=== PATIENT | female | born 1950 | race Caucasian/White ===

== ENCOUNTER 2022-12-02 19:56 | Outpatient (CLI) | payer MEDICARE, OTHER, SELFPAY | END 2022-12-02 19:57 | disposition home or self-care (01) | LOC: AMB 01-06 11:17 | PROVIDERS: Visit Provider Family Medicine | DX: R41.82 Altered mental status, unspecified (principal) | CPT/HCPCS: A0425; A0427 ==

== ENCOUNTER 2022-12-02 20:19 | Emergency (ER) | payer MEDICARE, OTHER, SELFPAY ==
[2022-12-02] VITALS (30 sets, daily range): BP systolic 120–184; BP diastolic 68–148; PULSE 43–119; RESP 18; TEMP 36.6; O2SAT 82–100; BMI 42.9
--- NOTE | 2022-12-02 20:23 | CRLHL7_ITS ---
For Patients: As a result of the Century Cures Act, medical imaging exams and procedure reports are released immediately into your electronic medical record. You may view this report before your referring provider. If you have questions, please contact your health care provider. CLINICAL HISTORY: Stroke. TECHNIQUE: Standard helical CT image acquisition of the brain was performed. COMPARISON: None available. FINDINGS: There is no intracranial hemorrhage, extra-axial collection, mass effect, or midline shift. [place]-white matter differentiation is preserved. Mild generalized parenchymal volume loss. No acute hydrocephalus. Patchy hypoattenuation in the white matter of both hemispheres likely reflects sequela of chronic small vessel ischemia. Intracranial atherosclerotic calcification. The calvarium is unremarkable. The orbits are unremarkable. Mucous retention cyst in the right maxillary sinus. Trace right mastoid effusion. IMPRESSION: No CT evidence of acute intracranial abnormality. Please note that all CT scans at this facility use dose modulation, iterative reconstruction, and/or weight-based dosing when appropriate to reduce radiation dose to as low as reasonably achievable. Dictated by Kevin Monroe MD @ 12/02/2022 8:56:23 PM (Electronically Signed)
--- NOTE | 2022-12-02 20:27 | CRLHL7_ITS ---
For Patients: As a result of the Century Cures Act, medical imaging exams and procedure reports are released immediately into your electronic medical record. You may view this report before your referring provider. If you have questions, please contact your health care provider. CLINICAL HISTORY: Stroke. TECHNIQUE: CTA head with contrast bolus tracking. 3D angiographic rendering using maximum intensity projection (MIP) and images permanently archived. COMPARISON: None available. FINDINGS: The petrous, cavernous, and supraclinoid segments of the internal carotid arteries are patent. The anterior and middle cerebral arteries are patent. The anterior communicating artery is visualized and is within normal limits. The intracranial vertebral arteries, basilar trunk, and posterior cerebral arteries are patent. 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 No intracranial proximal large vessel occlusion or flow-limiting luminal stenosis. No evidence of cerebral aneurysm. IMPRESSION: No intracranial proximal large vessel occlusion, flow-limiting luminal stenosis, or cerebral aneurysm. Please note that all CT scans at this facility use dose modulation, iterative reconstruction, and/or weight-based dosing when appropriate to reduce radiation dose to as low as reasonably achievable. Dictated by Kevin Monroe MD @ 12/02/2022 10:30:00 PM (Electronically Signed)
--- NOTE | 2022-12-02 20:27 | CRLHL7_ITS ---
For Patients: As a result of the Century Cures Act, medical imaging exams and procedure reports are released immediately into your electronic medical record. You may view this report before your referring provider. If you have questions, please contact your health care provider. CLINICAL HISTORY: Stroke. TECHNIQUE: CTA neck with contrast bolus tracking. 3D angiographic rendering using maximum intensity projection (MIP) and images permanently archived. COMPARISON: None available. FINDINGS: The great vessels are patent. The common carotid arteries are patent. Moderate (50-55%) stenosis of the proximal left ICA, by NASCET criteria, with an associated ulcerative plaque. Mild (<50%) stenosis of the proximal right ICA by NASCET criteria. The more distal cervical ICAs are patent. The origins of the vertebral arteries are patent. The cervical segments of the vertebral arteries are patent. 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 Please note that all CT scans at this facility use dose modulation, iterative reconstruction, and/or weight-based dosing when appropriate to reduce radiation dose to as low as reasonably achievable. Dictated by Kevin Monroe MD @ 12/02/2022 10:26:19 PM (Electronically Signed)
--- NOTE | 2022-12-02 20:30 | ED.NURSE ---
Contacted [facility] for medical records, these to be faxed momentarily.
--- NOTE | 2022-12-02 20:49 | ED.NURSE ---
Patient had IV placed in AC for scan, IV blew in CT. Difficult IV access. Anesthesia called, ED provider to attempt ultrasound IV access.
[2022-12-02 21:18] LABS: Basophils Percent Auto 0.2 % (0.0-3.0); Eosinophils Percent Auto 0.3 % (0.0-7.0); Hematocrit 49.2 % (33.0-51.0); Hemoglobin* 15.4 gm/dL (12.0-16.0); Immature Granulocytes Pct Auto 0.5 %; Lymphocytes Percent Auto 10.7 % (20-44); Mean Corpuscular HGB Conc 31 gm/dL (32-36); Mean Corpuscular Hemoglobin 31 pg (26-34); Mean Corpuscular Volume 100 fL (80-100); Monocytes Percent Auto 7.5 % (0.0-11.0); Neutrophils Percent Auto 80.8 % (42.0-72.0); Platelet Count* 349 K/uL (140-440); RDW Coefficient of Variation % 12.2 % (11.5-15.5); Red Blood Count 4.93 m/uL (4.00-5.20); White Blood Count* 13.92 K/uL (4.50-11.00)
[2022-12-02] MEDS: TENECTEPLASE 5 MG/ML inj 25 MG IVP (21:20)
[2022-12-02 21:32] LABS: Chloride* 102 mmol/L (96-114)
[2022-12-02 21:33] LABS: Potassium* 4.3 mmol/L (3.6-5.1); Sodium* 139 mmol/L (135-149)
[2022-12-02 21:35] LABS: Anion Gap 8 mEq/L (7-15); Carbon Dioxide* 29 mmol/L (20-32); Creatinine* 1.5 mg/dL (0.5-1.5); Est. Creatinine Clearance* 30.14; Estimated Glomerular Filt Rate 37 ml/min; INR 0.89 (0.91-1.10); Prothrombin Time 12.6 Seconds
[2022-12-02 21:36] LABS: Blood Urea Nitrogen* 23 mg/dL (7-30); Calcium* 9.8 mg/dL (8.4-10.6); Glucose* 132 mg/dL (60-115); Partial Thromboplastin Time* 24 Seconds (23-33)
[2022-12-02 21:39] LABS: Slide Review Reflex No
--- NOTE | 2022-12-02 22:15 | ED.GENADULT ---
HPI - General Adult General Chief complaint: Neuro Symptoms/Altered Deficit Stated complaint: Possible stroke Time Seen by Provider: 12/02/22 20:26 Source: patient Mode of arrival: EMS Limitations: no limitations History of Present Illness HPI narrative: 72-year-old female presenting via EMS with stroke-like symptoms. Last known well was at 6:30 p.m. approximately 1 hour and 45 minutes prior to presenting. Patient fell out of her bed this evening and was unable to get up. She noticed that her right arm was not moving. EMS was called when the they arrived at the scene they noticed that she had no movement of both right arm and right leg. Patient presents to the ER she is able to answer questions but is visibly affected on the right side. 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 She also has a history of hyperlipidemia, diaphragmatic hernia, hyper glycemia previously treated with metformin. She currently takes only Remeron and Cymbalta. She denies any history of abdominal or intracranial bleeds. She denies any recent surgeries. Past surgical history is status post expiratory laparotomy, gastric ulcer in closure in the year 1999, left salpingo oophorectomy in 2003, perforated gastric ulcer malrotation in 2001, Juan Luis fundoplication in 2001, breast nodule biopsy 2001, appendectomy, total abdominal hysterectomy calmer Lisfranc's fracture of the right foot status post surgical repair, small-bowel obstruction status post and an anastomosis at the age of 15. Related Data Home Medications Medication Instructions Recorded Confirmed duloxetine 60 mg capsule,delayed 120 mg PO DAILY 12/02/22 12/02/22 release Allergies Allergy/AdvReac Type Severity Reaction Status Date / Time No Known Drug Allergies Allergy Verified 12/02/22 21:06 Review of Systems Status of ROS: Reports: 6 or more systems reviewed and unremarkable except as noted in History and below [facility] Social History Smoking Status: Never smoker How often do you have a drink containing alcohol: never AUDIT-C Alcohol total score: 0 Non-prescribed substance use: denies use Exam Narrative: Exam Narrative: Patient is met in the ambulance [facility]. Obese patient lying quietly on the gurney. Alert and oriented x3. Answers questions appropriately. Patient speaks in full sentences without needing to catch her breath. HEENT: Normocephalic atraumatic. Pupils are equally round reactive to light. Extraocular muscles are intact. Conjunctivae are moist without any icterus noted. Moist mucous membranes. Poor oral hygiene. Neck is soft without any lymphadenopathy or thyromegaly. Cardiovascular: Heart is regular irregularly irregular. Lungs: Distant breath sounds bilaterally, clear. Abdomen: Soft and nontender nondistended with normal bowel sounds. No guarding or rebound. No masses or organomegaly appreciated. Extremities: Bilateral lower extremities are without edema. Skin: Well perfused without any obvious rashes. Strength is 4/5 on the left patient does not move the right upper or lower extremity at all. [id number] is slow and deliberate on the left, does not move right arm. Patient has right shu neglect. Gaze does not follow past the midline. Const: Vital Signs, click to edit/add: Vital Signs - 24 hr 12/02/22 20:55 12/02/22 20:56 12/02/22 20:57 Temperature Pulse Rate 72 74 74 Pulse Rate [Right Pulse Oximeter] Respiratory Rate Blood Pressure 145/93 H 160/77 H Blood Pressure [Ri ght Upper Arm] Pulse Oximetry 95 94 100 Oxygen Delivery Me thod Oxygen Flow Rate 12/02/22 21:00 12/02/22 21:02 12/02/22 21:06 Temperature 97.9 F Pulse Rate 79 74 Pulse Rate [Right Pulse Oximeter] 84 Respiratory Rate 18 Blood Pressure 184/148 H Blood Pressure [Ri ght Upper Arm] 184/148 H Pulse Oximetry 97 95 97 Oxygen Delivery Me thod Room Air Oxygen Flow Rate 12/02/22 21:15 12/02/22 21:17 12/02/22 21:35 Temperature Pulse Rate Pulse Rate [Right Pulse Oximeter] Respiratory Rate Blood Pressure 176/98 H 170/83 H 120/107 H Blood Pressure [Ri ght Upper Arm] Pulse Oximetry Oxygen Delivery Me thod Oxygen Flow Rate 12/02/22 21:37 12/02/22 21:38 12/02/22 21:45 Temperature Pulse Rate 106 H 73 Pulse Rate [Right Pulse Oximeter] Respiratory Rate Blood Pressure 134/122 H Blood Pressure [Ri ght Upper Arm] Pulse Oximetry 91 90 Oxygen Delivery Me thod Oxygen Flow Rate 12/02/22 21:49 12/02/22 21:50 12/02/22 21:53 Temperature Pulse Rate 78 75 Pulse Rate [Right Pulse Oximeter] Respiratory Rate Blood Pressure 159/129 H Blood Pressure [Ri ght Upper Arm] Pulse Oximetry 96 97 95 Oxygen Delivery Me thod Oxygen Flow Rate 12/02/22 21:54 12/02/22 21:54 12/02/22 21:57 Temperature Pulse Rate 80 Pulse Rate [Right Pulse Oximeter] Respiratory Rate Blood Pressure 161/101 H Blood Pressure [Ri ght Upper Arm] Pulse Oximetry 96 82 L 95 Oxygen Delivery Me thod Nasal Cannula Oxygen Flow Rate 2 12/02/22 22:02 12/02/22 22:03 12/02/22 22:06 Temperature Pulse Rate 78 72 77 Pulse Rate [Right Pulse Oximeter] Respiratory Rate Blood Pressure 150/137 H 161/131 H Blood Pressure [Ri ght Upper Arm] Pulse Oximetry 94 96 97 Oxygen Delivery Me thod Oxygen Flow Rate 12/02/22 22:14 12/02/22 22:15 12/02/22 22:18 Temperature Pulse Rate 73 43 L 79 Pulse Rate [Right Pulse Oximeter] Respiratory Rate Blood Pressure 131/116 H 145/74 H Blood Pressure [Ri ght Upper Arm] Pulse Oximetry 100 98 96 Oxygen Delivery Me thod Oxygen Flow Rate 12/02/22 22:33 12/02/22 22:48 12/02/22 23:03 Temperature Pulse Rate Pulse Rate [Right Pulse Oximeter] Respiratory Rate Blood Pressure 147/77 H 153/108 H 154/68 H Blood Pressure [Ri ght Upper Arm] Pulse Oximetry Oxygen Delivery Me thod Oxygen Flow Rate 12/02/22 23:11 Temperature Pulse Rate 119 H Pulse Rate [Right Pulse Oximeter] Respiratory Rate Blood Pressure Blood Pressure [Ri ght Upper Arm] Pulse Oximetry 86 L Oxygen Delivery Me thod Oxygen Flow Rate Course Course ED Course: Patient was met in the ambulance [facility] and examined in route to CT. Head CT was done was unremarkable. Unfortunately patient only had a 22 gauge in and depression staff was unable to get another IV arm. Dr. Benitez was also in the ER at the time, was eventually able to get a ultrasound-guided IV in. Of note, we did call Anesthesia for assistance and they initially refused to come. By the time that they did come, the IV was just getting placed. This was around minute 50. We did call the stroke code right away upon arrival and so Dr. Avelar from [facility] was online with us. We discussed putting and IO however Dr. Avelar stated that this was not ideal. Once the IV was established Tenectaplase was given, after risks and benefits were discussed for the patient. We were then able to draw labs, which were unremarkable, and send the patient for CTA head and neck both of which were unremarkable. The only abnormality noted on the CT neck was Moderate (50-55%) stenosis of the proximal left ICA, by NASCET criteria, with an associated ulcerative plaque. Mild (<50%) stenosis of the proximal right ICA. EKG, read by me, shows atrial fibrillation with a pulse of 81. This is new when compared to previous EKGs in her past medical records which showed normal sinus rhythm. Patient's blood pressure remained stable around the 150s systolic. [facility] did accept the patient for transfer however there is no bed available at the time. Therefore patient did stay in the ER for a total of 3 hours while a bed became available. Patient remained stable without significant changes during that time. She is transferred via ALS ambulance. Vital Signs Vital signs: Initial Vital Signs Pulse Rate 72 12/02/22 20:55 Blood Pressure 145/93 H 12/02/22 20:55 Blood Pressure Mean 110 H 12/02/22 20:55 Pulse Oximetry 95 12/02/22 20:55 Vital Signs Pulse Rate 72 12/02/22 20:55 Blood Pressure 145/93 H 12/02/22 20:55 Pulse Oximetry 95 12/02/22 20:55 Temperature 97.9 F 12/02/22 21:06 Pulse Rate 119 H 12/02/22 23:11 Respiratory Rate 18 12/02/22 21:06 Blood Pressure 154/68 H 12/02/22 23:03 Pulse Oximetry 86 L 12/02/22 23:11 Oxygen Delivery Method Nasal Cannula 12/02/22 21:57 Oxygen Flow Rate 2 12/02/22 21:57 Medical Decision Making MDM Narrative Medical decision making narrative: 72-year-old male status post stroke with right-sided hemiparesis and hemineglect. Patient transferred to [facility] for further management. Medical Records Medical records reviewed: Yes I reviewed the patient's medical records Lab Data Lab results reviewed: Yes I reviewed the patient's lab results Labs: Lab Results 12/02/22 Range/Units 21:09 WBC 13.92 H (4.50-11.00) K/uL RBC 4.93 (4.00-5.20) m/uL Hgb 15.4 (12.0-16.0) gm/dL Hct 49.2 (33.0-51.0) % MCV 100 (80-100) fL MCH 31 (26-34) pg MCHC 31 L (32-36) gm/dL RDW Coeff of Lilian 12.2 (11.5-15.5) % Plt Count 349 (140-440) K/uL Neut % (Auto) 80.8 H (42.0-72.0) % Lymph % (Auto) 10.7 L (20-44) % Yates % (Auto) 7.5 (0.0-11.0) % Eos % (Auto) 0.3 (0.0-7.0) % Baso % (Auto) 0.2 (0.0-3.0) % Neut # (Auto) 11.20 H (1.7-7.0) K/uL Lymph # (Auto) 1.50 (0.90-2.90) K/uL Yates # (Auto) 1.00 H (0.00-0.90) K/UL Eos # (Auto) 0.00 (0.00-0.50) K/uL Baso # (Auto) 0.00 (0.00-0.30) K/uL Abs Immat Gran (auto) 0.10 (0.00-0.30) K/uL Imm/Tot Granulo (auto) 0.5 % INR 0.89 L (0.91-1.10) APTT 24 (23-33) Seconds Sodium 139 (135-149) mmol/L Potassium 4.3 (3.6-5.1) mmol/L Chloride 102 (96-114) mmol/L Carbon Dioxide 29 (20-32) mmol/L Anion Gap 8 (7-15) mEq/L BUN 23 (7-30) mg/dL Creatinine 1.5 (0.5-1.5) mg/dL Estimated Creat Clear 30.14 Estimated GFR 37 ml/min Glucose 132 H (60-115) mg/dL Calcium 9.8 (8.4-10.6) mg/dL Imaging Data CT scan - head: Attestation: I have reviewed the pertinent imaging results. Radiologist's impression: Standard helical CT image acquisition of the brain was performed. COMPARISON: None available. FINDINGS: There is no intracranial hemorrhage, extra-axial collection, mass effect, or midline shift. [place]-white matter differentiation is preserved. Mild generalized parenchymal volume loss. No acute hydrocephalus. Patchy hypoattenuation in the white matter of both hemispheres likely reflects sequela of chronic small vessel ischemia. Intracranial atherosclerotic calcification. The calvarium is unremarkable. The orbits are unremarkable. Mucous retention cyst in the right maxillary sinus. Trace right mastoid effusion. IMPRESSION: No CT evidence of acute intracranial abnormality. CTA head neck: Attestation: I have reviewed the pertinent imaging results. Radiologist's impression: CTA head with contrast bolus tracking. 3D angiographic rendering using maximum intensity projection (MIP) and images permanently archived. COMPARISON: None available. FINDINGS: The petrous, cavernous, and supraclinoid segments of the internal carotid arteries are patent. The anterior and middle cerebral arteries are patent. The anterior communicating artery is visualized and is within normal limits. The intracranial vertebral arteries, basilar trunk, and posterior cerebral arteries are patent. 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 No intracranial proximal large vessel occlusion or flow-limiting luminal stenosis. No evidence of cerebral aneurysm. IMPRESSION: No intracranial proximal large vessel occlusion, flow-limiting luminal stenosis, or cerebral aneurysm. CTA neck with contrast bolus tracking. 3D angiographic rendering using maximum intensity projection (MIP) and images permanently archived. COMPARISON: None available. FINDINGS: The great vessels are patent. The common carotid arteries are patent. Moderate (50-55%) stenosis of the proximal left ICA, by NASCET criteria, with an associated ulcerative plaque. Mild (<50%) stenosis of the proximal right ICA by NASCET criteria. The more distal cervical ICAs are patent. The origins of the vertebral arteries are patent. The cervical segments of the vertebral arteries are patent. 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 ECG Data Attestation: I personally reviewed and interpreted this ECG as follows: Critical Care Time Critical Care Time Total Critical Care Time in Minutes: 90 Discharge Plan Discharge Clinical Impression: Cerebrovascular accident Patient Disposition: [facility] Calderon Condition: Guarded Prescriptions: No Action duloxetine 60 mg capsule,delayed release(DR/EC) 120 mg PO DAILY Follow Up/Referrals: Provider,Not a Local [Primary Care Provider] - Stand Alone Forms: [employer] Info Instructions
--- NOTE | 2022-12-02 23:26 | ED.NURSE ---
Patient transferred to [facility]. Report called to Santos carlos, neuro ICU.
== END 2022-12-02 23:28 | disposition short-term general hospital (02) ==
PROVIDERS: Emergency Provider Family Medicine
DX: I63.9 Cerebral infarction, unspecified (principal); G81.91 Hemiplegia, unspecified affecting right dominant side
CPT/HCPCS: 36415; 70450; 70496; 70498; 80048; 82962; 85025; 85610; 85730; 93005; 94761; 96374; 99285; 99291; 99292; G0508; J3101; Q9967

== ENCOUNTER 2023-04-11 23:39 | Outpatient (CLI) | payer MEDICARE, OTHER, SELFPAY | END 2023-04-11 23:40 | disposition home or self-care (01) | LOC: AMB 04-15 13:20 | PROVIDERS: Visit Provider Family Medicine | DX: R53.1 Weakness (principal) | CPT/HCPCS: A0998 ==

== ENCOUNTER 2023-04-16 15:43 | Outpatient (CLI) | payer MEDICARE, OTHER, SELFPAY | END 2023-04-16 15:44 | disposition home or self-care (01) | LOC: AMB 04-17 18:02 | PROVIDERS: Visit Provider Family Medicine | DX: R53.1 Weakness (principal) | CPT/HCPCS: A0998 ==

== ENCOUNTER 2023-07-21 13:45 | Outpatient (RCR) | payer MEDICARE, OTHER, SELFPAY | END 2023-11-10 13:58 | disposition home or self-care (01) | PROVIDERS: PCP Family Medicine; Visit Provider Family Medicine | DX: I69.351 Hemiplegia and hemiparesis following cerebral infarction affecting right dominant side (principal); Z51.89 Encounter for other specified aftercare | CPT/HCPCS: 97110; 97112; 97116; 97162; 97165; 97530; 97535 ==

== ENCOUNTER 2024-01-04 07:11 | Outpatient (CLI) | payer MEDICARE, OTHER, SELFPAY | END 2024-01-04 07:12 | disposition home or self-care (01) | LOC: AMB 01-07 14:21 | PROVIDERS: PCP Family Medicine; Visit Provider Emergency Medicine | DX: R53.1 Weakness (principal) | CPT/HCPCS: A0998 ==

== ENCOUNTER 2024-04-04 03:31 | Outpatient (CLI) | payer MEDICARE, SELFPAY | END 2024-04-04 03:32 | disposition home or self-care (01) | LOC: AMB 04-19 10:32 | PROVIDERS: PCP Family Medicine; Visit Provider Family Medicine | DX: R53.1 Weakness (principal) | CPT/HCPCS: A0998 ==

== ENCOUNTER 2024-06-02 08:01 | Outpatient (CLI) | payer MEDICARE, SELFPAY | END 2024-06-02 08:02 | disposition home or self-care (01) | LOC: AMB 06-03 11:53 | PROVIDERS: PCP Family Medicine; Visit Provider Emergency Medicine | DX: R53.1 Weakness (principal) | CPT/HCPCS: A0998 ==

== ENCOUNTER 2024-08-26 15:54 | Outpatient (CLI) | payer MEDICARE, SELFPAY ==
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
--- OUTSIDE RECORDS SUMMARY | 2024-08-15 13:45 | XMS_ITS | Encounter Summary ---
Author Organization [facility] Address [address] [place] [address] Care Team Providers Care Slab Puller Name Role Phone Susi Lemus P.A.-C. Primary Care Pro vider Reason for Referral * Outpatient (Routine) - Closed Specialty Diagnoses / Procedures Referred By Contac t Referred To Contact Diagnoses Atrial Fibrillation Unspecified (HCC) Procedures ECG 12 Lead HI EKG 12 LEAD W I&R Susi Lemus MPAS, P.A.-C. [address] [place] [address] Phone: tel: fax: [facility] Region Referral ID Status Reason Start Date Expiration Date Visits Re quested Visits Authorized [id number] Closed 08/15/2024 11/15/2025 1 1 Reason for Visit * Outpatient (Routine) - Closed Specialty Diagnoses / Procedures Referred By Contac t Referred To Contact Diagnoses Atrial Fibrillation Unspecified (HCC) Procedures ECG 12 Lead HI EKG 12 LEAD W I&R Suis Lemus MPAS, P.A.-C. [address] [place] [address] Phone: tel: fax: [facility] Region Referral ID Status Reason Start Date Expiration Date Visits Re quested Visits Authorized [id number] Closed 08/15/2024 11/15/2025 1 1 Encounter Details Date Type Department Care Team (Latest Contact Info) Description 08/15/2024 1:45 PM CDT - 08/15/2024 11:59 PM CDT Hospital Encounter Department of Laboratory Medicine in [place], [place] [address] [facility] [place] [address] Susi Lemus MPAS, P.A.-C. [address] [facility] [place] [phone] Atrial Fibrillation Unspecified (HCC) Discharge Disposition: Home or Self Care Social History Tobacco Use Types Packs/Day Years Used Date Smoking Tobacco: Never Passive Smoke Exposure: Past Smokeless Tobacco: Never Alcohol Use Standard Drinks/Week Comments Not Currently 0 (1 standard drink = 0.6 oz pur e alcohol) basicly nil [facility] Utilities Answer Date Recorded In the past 12 months has e POW, oil, or water [employer] threatened to shut off services in your [...] your living situation today? I have a [facility] place to live 08/15/2024 Education Answer Date Recorded What is the highest level of school you have completed or the highest degree you have received? Associate degree: occupational, technical, or vocational program 12/09/2021 Comments No Sex and Gender Information Value Date Recorded Sex Assigned at Female 03/22/2023 10:14 PM FOOD ORDER DELIVERY RUNNER Legal Sex Female 5:31 AM FOOD ORDER DELIVERY RUNNER Gender Identity Female 02/02/2018 11:17 AM FOOD ORDER DELIVERY RUNNER Sexual Orientation Straight 02/02/2018 11 :17 AM FOOD ORDER DELIVERY RUNNER documented as of this encounter Medications at Time of Discharge acetaminophen (TYLENOL) 500 mg tablet Take 1,000 mg by mouth every 6 (six) hours as needed. 03/12/2023 atorvastatin (Lipitor) 80 mg tablet TAKE 1 TABLET (80 MG TOTAL) BY MOUTH AT BEDTIME. 90 tablet 3 08/17/2024 1:16 PM CDT 08/17/2024 baclofen (LioresaL) 10 mg tablet TAKE 1 TABLET (10 MG TOTAL) BY MOUTH 2 (TWO) TIMES A DAY. 180 tablet 3 08/17/2024 1:17 PM CDT 08/17/2024 busPIRone (BuSpar) 5 mg tablet Take 1 tablet (5 mg total) by mouth 2 (two) times a day. 180 tablet 08/17/2024 1:16 PM CDT 08/15/2024 DME Oxygen Oxygen for home use. Liters per minute: 2 per nasal cannula. Frequency of use: Nocturnal;. Length of need: 99 Months. 03/12/2023 DULoxetine (Cymbalta) [address] capsule TAKE 2 CAPSULES (120 MG TOTAL) BY MOUTH DAILY. 180 capsule 3 08/17/2024 1:17 PM CDT 08/17/2024 Eliquis 5 mg tablet TAKE 1 TABLET (5 MG TOTAL) BY MOUTH 2 (TWO) TIMES A DAY. 180 tablet 3 08/17/2024 1:17 PM CDT 08/17/2024 gabapentin (Neurontin) 100 mg capsule TAKE 1 CAPSULE (100 MG TOTAL) BY MOUTH AT BEDTIME. 90 capsule 3 08/17/2024 1:16 PM CDT 08/17/2024 ketoconazole (NIZORAL) 2 % shampoo Shampoo twice weekly , leave on for 5-10 minutes, then rinse. 120 mL 11 04/01/2023 lidocaine (LMX) 4 % cream APPLY TOPICALLY TO INTACT SKIN 4 TIMES DAILY FOR NEUROPATHIC OR MUSCULOSKELETAL PAIN. DO NOT PLACE OVER INCISION, WOUND, OR RASH AREA. 03/12/2023 lidocaine HCL (ASPERCREME) 4 % cream cream Apply topically to intact skin 4 times daily for neuropathic or musculoskeletal pain. Do not place over incision, wound, or rash area. 03/12/2023 miconazole (MICATIN) 2 % cream APPLY TOPICALLY TO AFFECTED SKIN UNDER BILATERAL BREASTS (ESPECIALLY RIGHT BREAST) TWICE DAILY UNTIL RESOLVED. DO NOT PLACE OVER {ADTDIR} 03/12/2023 miconazole 2 % powder Apply topically daily. Apply to under breast after shower . 43 g 08/02/2024 2:11 PM CDT 08/02/2024 senna 8.6 mg tablet TAKE 2 TABLETS (17.2 MG) BY MOUTH ONCE DAILY. 180 tablet 3 04/27/2023 UNABLE TO FIND Take by mouth daily. Med Name: Instaflex WHEELCHAIR [facility] Wheelchair: Standard with leg rests: (Swing away Length of need: 99 months 03/05/2023 apixaban (Eliquis) 5 mg tablet Take 1 tablet (5 mg total) by mouth 2 (two) times a day. 180 tablet 3 08/11/2023 08/18/19 25 atorvastatin (LIPITOR) 80 mg tablet Take 1 tablet (80 mg total) by mouth at bedtime. 90 tablet 3 08/11/2023 08/18/19 25 baclofen (LioresaL) 10 mg tablet Take 1 tablet (10 mg total) by mouth 2 (two) times a day. 180 tablet 3 08/11/2023 08/18/19 25 DULoxetine (CYMBALTA) [address] capsule Take 2 capsules (120 mg total) by mouth daily. 180 capsule 3 08/11/2023 08/18/19 25 gabapentin (NEURONTIN) 100 mg capsule Take 1 capsule (100 mg total) by mouth at bedtime. 90 capsule 3 08/11/2023 08/18/19 25 documented as of this encounter Plan of Treatment Upcoming Encounters Date Type Department Care Team (Late st Contact Info) Description 09/19/2024 2:00 PM CDT Office Visit Department of Community Internal Medicine in [place], [place] [address] [place] [phone] Susi Lemus MPAS, P.A.-C. [address] [place] [phone] 11/01/2024 12:00 PM CDT Comprehensive Visit Department of Neurology in [place], [place] [address] [place] [address] Lang Olguin M.D. [address] [place] [address] documented as of this encounter Procedures Procedure Name Priority Date/Time Associated Diagnosis Comments ECG Routine 08/15/2024 1:56 PM CDT Atrial Fibrillation Unspecified (HCC) documented in this encounter Results * ECG 12 Lead (08/15/2024 1:56 PM CDT) Ventricular Rate ECG/Min 76 BPM MUSE HI Interval 150 ms MUSE QRSD Interval 78 ms MUSE QT Interval 388 ms MUSE QTC Interval 436 ms MUSE R [place] -27 degrees MUSE T Wave [place] 25 degrees MUSE 08/15/2024 1:56 PM CDT [...] leads Reviewed by MAYLIN Byrne us Susi GUZMAN PChetnaA.-C. ECG ORDERABLES E dited Result - Final MUSE NA documented in this encounter Visit Diagnoses Diagnosis Atrial Fibrillation Unspecified (HCC) documented in this encounter Additional Health Concerns Assessment Noted Time PHQ-9 Depression Total Score: 7 08/16/19 25 12:54 PM CDT documented as of this encounter Care Teams Slab Puller Relationship Specialty Start Date End Date Susi Lemus MPAS, P.A.-C. [address] [place] [phone] PCP - General Internal Medicine 08/02/24 documented as of this encounter
--- OUTSIDE RECORDS SUMMARY | 2024-08-15 13:45 | XMS_ITS | Encounter Summary ---
Author Organization [facility] Address [address] [place] [address] Care Team Providers Care Cloth Bin Packer Name Role Phone Susi Lemus, P.A.-C. Primary Care Pro vider Encounter Details Date Type Department Care Team (Latest Contact Info) Description 08/15/2024 1:45 PM CDT - 08/15/2024 11:59 PM CDT Hospital Encounter Department of Laboratory Medicine in [place], [place] [address] [place] [phone] Susi Lemus MPAS, P.A.-C. [address] [place] [phone] Hyperlipidemia; Screening Examination Diabetes Mellitus; Solitary Kidney Congenital Discharge Disposition: Home or Self Care Social History Tobacco Use Types Packs/Day Years Used Date Smoking Tobacco: Never Passive Smoke Exposure: Past Smokeless Tobacco: Never Alcohol Use Standard Drinks/Week Comments Not Currently 0 (1 standard drink = 0.6 oz pur e alcohol) basicly nil [facility] Utilities Answer Date Recorded In the past 12 months has e [employer], oil, or water [employer] threatened to shut off services in your [...] your living situation today? I have a [facility] place to live 08/15/2024 Education Answer Date Recorded What is the highest level of school you have completed or the highest degree you have received? Associate degree: occupational, technical, or vocational program 12/09/2021 Comments No Sex and Gender Information Value Date Recorded Sex Assigned at Female 03/22/2023 10:14 PM REAL ESTATE FINANCIAL ANALYST Legal Sex Female 5:31 AM REAL ESTATE FINANCIAL ANALYST Gender Identity Female 02/02/2018 11:17 AM REAL ESTATE FINANCIAL ANALYST Sexual Orientation Straight 02/02/2018 11 :17 AM REAL ESTATE FINANCIAL ANALYST documented as of this encounter Medications at [...] by mouth daily. Med Name: Instaflex WHEELCHAIR MISC Wheelchair: Standard with leg rests: (Swing away [...] Visit Department of Community Internal Medicine in [place], [place] [address] [place] [phone] Susi Lemus MPAS, P.A.-C. [address] [place] [phone] 11/01/2024 12:00 PM CDT Comprehensive Visit Department of Neurology in [place], [place] [address] [place] [phone] Lang Olguin M.D. [address] [place] [phone] documented as of this encounter Procedures Procedure Name Priority Date/Time Associated Diagnosis Comments LIPID PANEL, S Routine 08/15/2024 2:15 PM CDT Hyperlipidemia CBC WITH DIFFERENTIAL, B Routine 08/15/2024 2:15 PM CDT Solitary Kidney Congenital HEMOGLOBIN A1C, B Routine 08/15/2024 2:1 5 PM CDT Screening Examination Diabetes Mellitus BASIC METABOLIC PANEL, S/P Routine 08/15/2024 2:15 PM CDT Solitary Kidney Congenital documented in this encounter Results * (ABNORMAL) CBC with Differential, Blood (08/15/2024 2:15 PM CDT) [facility] Hemoglobin 13.5 11.6 - 15.0 g/dL 08/15/2024 [...] GUZMAN, P.A.-C. LAB BLOOD ADD-ON Final Result [facility] [address] [place] [address], [facility] [place] [address] [place] [address] * (ABNORMAL) Basic Metabolic Panel (08/15/2024 2:15 [...] 2:15 PM CDT 08/15/2024 5:44 PM CDT Arturo LoredoA.-C. LAB BLOOD ADD-ON Final Result Performing Organization Address City/[facility]/ZIP Co de Phone Number [facility] [address] [place] [address], [place] [facility] [place] [address] [place] [address] * Hemoglobin A1c (08/15/2024 2:15 PM CDT) Hemoglobin A1c, B 5.6 4.2 - 5.6 % 08/15/2024 6:14 PM CDT OWAT Blood (Blood, Venous) 08/15/2024 2:15 PM CDT 08/15/2024 5:44 PM CDT Arturo LoredoA.-C. LAB BLOOD ADD-ON Final Result Performing Organization Address [facility] Co de Phone Number [facility] [address] [place] [address], [place] [facility] [place] [address] [place] [address] * Lipid Panel (08/15/2024 2:15 PM CDT) [...] GUZMAN, P.A.-C. LAB BLOOD ADD-ON Final Result [facility] [address] [place] [address], [facility] [place] [address] [place] [address] documented in this encounter Visit Diagnoses Diagnosis Hyperlipidemia Screening Examination Diabetes Mellitus Solitary Kidney Congenital documented in this encounter Additional Health Concerns Assessment Noted Time PHQ-9 Depression Total Score: 7 08/16/19 12:54 PM CDT documented as of this encounter Care Teams Cloth Bin Packer Relationship Specialty Start Date End Date Susi Lemus MPAS, P.A.-C. [address] [place] [address] [place] [phone] PCP - General Internal Medicine 08/02/24 documented as of this encounter
--- OUTSIDE RECORDS SUMMARY | 2024-08-30 00:29 | XMS_ITS | Encounter Summary ---
Author Organization [facility] Address [address] [place] [address] Care Team Providers Care Ad Operations Associate Name Role Phone Susi Lemus P.A.-C. Primary Care Pro vider Encounter Details Date Type Department Care Team (Late st Contact Info) Description 11/08/2010 Historical Ophthalmology [facility] Denver Murphy M.D. [address] [place] [address] Social History Tobacco Use Types Packs/Day Years Used Date Smoking Tobacco: Never Assessed Comments Unknown Sex and Gender Information Value Date Recorded Sex Assigned at Female 03/22/2023 10:14 PM PEDIATRIC ASSISTANT Legal Sex Female 5:31 AM PEDIATRIC ASSISTANT Gender Identity Female 02/02/2018 11:17 AM PEDIATRIC ASSISTANT Sexual Orientation Straight 02/02/2018 11 :17 AM PEDIATRIC ASSISTANT documented as of this encounter Progress Notes * Denver Murphy M.D. - 11/08/2010 11:33 AM CDT Eye Postoperative MULTI-VISIT DOCUMENT This document contains multiple patient visits and is available for review in Document Viewer. CDM Reports - EYEPO Id: [id number] Status: Fnl documented in this encounter Plan of Treatment Upcoming Encounters Date Type Department Care Team (Late st Contact Info) Description 09/19/2024 2:00 PM CDT Office Visit Department of Community Internal Medicine in [place], [place] 300 [place] [phone] Susi Lemus MPAS, P.A.-C. [address] [place] [phone] 11/01/2024 12:00 PM CDT Comprehensive Visit Department of Neurology in [place], [place] [address] [place] [phone] Lang Olguin M.D. [address] [place] [phone] documented as of this encounter Visit Diagnoses Not on filedocumented in this encounter Additional Health Concerns Infection Onset Date Last Indicated Resolved Time COVID19 Pending 09/30/2019 09/30/2019 10/01/2019 6 :52 PM CDT Assessment Noted Time PHQ-9 Depression Total Score: 15 08/31/ 008 4:27 PM CDT documented as of this encounter Care Teams Ad Operations Associate Relationship Specialty Start Date End Date Susi Lemus MPAS, P.A.-C. [address] [facility] [place] [phone] PCP - General Internal Medicine 08/02/24 documented as of this encounter
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
--- OUTSIDE RECORDS SUMMARY | 2024-08-30 00:29 | XMS_ITS | Encounter Summary ---
Author Organization [facility] Address [address] [place] [address] Care Team Providers Care Power Line Installer And Repairer Name Role Phone Susi Lemus P.A.-C. Primary Care Pro vider Encounter Details Date Type Department Care Team (Late st Contact Info) Description 07/23/2011 Historical Ophthalmology [facility] Candace Greenwood O.D. [address] [place] [address] Social History Tobacco Use Types Packs/Day Years Used Date Smoking Tobacco: Never Assessed Comments Unknown Sex and Gender Information Value Date Recorded Sex Assigned at Female 03/22/2023 10:14 PM PHYSICIAN/OPHTHALMOLOGIST Legal Sex Female 5:31 AM PHYSICIAN/OPHTHALMOLOGIST Gender Identity Female 02/02/2018 11:17 AM PHYSICIAN/OPHTHALMOLOGIST Sexual Orientation Straight 02/02/2018 11 :17 AM PHYSICIAN/OPHTHALMOLOGIST documented as of this encounter Progress Notes * Candace Greenwood O.D. - 07/23/2011 3:23 PM CDT Eye General CHIEF COMPLAINT Lost glasses, needs to renew drivers license. HISTORY OF PRESENT ILLNESS Patient reports that she lost her glasses in the fall, she reports that she had eyelid surgery and felt vision had improved so she did not get new glasses. She reports that her drivers license needs to be renewed and she wants to make sure she can pass the vision test. Patient brought a pair of glasses with her, they are 2 prescriptions ago, she feels they are too strong. Patient denies pain, flashes, floaters, or diplopia. IMPRESSION / REPORT / PLAN #1 Refractive error (mixed astigmatism, presbyopia). Plan: spectacle prescription (Refraction 1) given, change discussed and demonstrated. Recommended examination q 1-2 years or PRN. DIAGNOSIS #1 Refractive error (mixed astigmatism, presbyopia). CDM Reports - EYEGEN Id: [id number] Status: Fnl documented in this encounter Plan of Treatment Upcoming Encounters Date Type Department Care Team (Late st Contact Info) Description 09/19/2024 2:00 PM CDT Office Visit Department of Community Internal Medicine in [place], [place] [address] [place] [phone] Susi Lemus MPAS, P.A.-C. [address] [place] [phone] 11/01/2024 12:00 PM CDT Comprehensive Visit Department of Neurology in [place], [place] [address] [place] [address] Lang Olguin M.D. [address] [place] [address] documented as of this encounter Visit Diagnoses Not on filedocumented in this encounter Additional Health Concerns Infection Onset Date Last Indicated Resolved Time COVID19 Pending 09/30/2019 09/30/2019 10/01/2019 6 :52 PM CDT Assessment Noted Time PHQ-9 Depression Total Score: 15 08/31/2 008 4:27 PM CDT documented as of this encounter Care Teams Power Line Installer And Repairer Relationship Specialty Start Date End Date Susi Lemus MPAS, P.A.-C. [address] [place] [phone] PCP - General Internal Medicine 08/02/24 documented as of this encounter
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
--- OUTSIDE RECORDS SUMMARY | 2024-08-30 00:30 | XMS_ITS | Encounter Summary ---
Author Organization [facility] Address [address] [place] [address] Care Team Providers Care Fish Cleaner Machine Tender Name Role Phone Susi Lemus P.A.-C. Primary Care Pro vider Encounter Details Date Type Department Care Team (Late st Contact Info) Description 06/25/2010 Historical Ophthalmology RST OPH Yudi Chin Social History Tobacco Use Types Packs/Day Years Used Date Smoking Tobacco: Never Assessed Comments Unknown Sex and Gender Information Value Date Recorded Sex Assigned at Female 03/22/2023 10:14 PM ASPHALT SMOOTHER Legal Sex Female 5:31 AM ASPHALT SMOOTHER Gender Identity Female 02/02/2018 11:17 AM ASPHALT SMOOTHER Sexual Orientation Straight 02/02/2018 11 :17 AM ASPHALT SMOOTHER documented as of this encounter Progress Notes * Yudi Chin - 06/25/2010 3:22 PM CDT Eye Subsequent Visit HISTORY OF PRESENT ILLNESS Ptosis visual field completed. Returning to Dr. Murphy 06-28-10. CDM Reports - EYESV Id: [id number] Status: Fnl documented in this encounter Plan of Treatment Upcoming Encounters Date Type Department Care Team (Late st Contact Info) Description 09/19/2024 2:00 PM CDT Office Visit Department of Community Internal Medicine in [place] [address] [place] [phone] Susi Lemus MPAS, P.A.-C. [address] [facility] [place] [address] 11/01/2024 12:00 PM CDT Comprehensive Visit Department of Neurology in [place], [place] [address] [place] [address] Lang Olguin M.D. [address] [place] [phone] documented as of this encounter Visit Diagnoses Not on filedocumented in this encounter Additional Health Concerns Infection Onset Date Last Indicated Resolved Time COVID19 Pending 09/30/2019 09/30/2019 10/01/2019 6 :52 PM CDT Assessment Noted Time PHQ-9 Depression Total Score: 15 08/31/ 008 4:27 PM CDT documented as of this encounter Care Teams Fish Cleaner Machine Tender Relationship Specialty Start Date End Date Susi Lemus MPAS, P.A.-C. [address] [facility] [place] [address] PCP - General Internal Medicine 08/02/24 documented as of this encounter
--- OUTSIDE RECORDS SUMMARY | 2024-08-30 00:30 | XMS_ITS | Encounter Summary ---
Author Organization [facility] Address [address] [place] [address] Care Team Providers Care Adjunct Psychology Professor Name Role Phone Susi Lemus P.A.-C. Primary Care Pro vider Encounter Details Date Type Department Care Team (Late st Contact Info) Description 06/25/2005 Historical Ophthalmology RST OPH Antonino Arias M.D. Social History Tobacco Use Types Packs/Day Years Used Date Smoking Tobacco: Never Assessed Comments Unknown Sex and Gender Information Value Date Recorded Sex Assigned at Female 03/22/2023 10:14 PM EMERGENCY ROOM TECHNICIAN Legal Sex Female 5:31 AM EMERGENCY ROOM TECHNICIAN Gender Identity Female 02/02/2018 11:17 AM EMERGENCY ROOM TECHNICIAN Sexual Orientation Straight 02/02/2018 11 :17 AM EMERGENCY ROOM TECHNICIAN documented as of this encounter Progress Notes * Antonino Arias M.D. - 06/25/2005 12:00 AM CDT Eye General CHIEF COMPLAINT Difficulties with bifocals HISTORY OF PRESENT ILLNESS Pt has difficulties with bifocals in glasses. Pt has a tendency to take glasses off to read. When watching television pt feels like she is tilting her head down to look out the top of her glasses. Occasioanl floater which is not bother some. IMPRESSION / REPORT / PLAN #1 Refractive error (myopic astigmatism, presbyopia). Not clear how best to manage glasses correction at work, so that she doesn't end up taking glasses on / off all the time. Options: a) standard lined bifocal, b) computer progressive, c) distance only. Also, may benefit from prismatic compensation for distance esophoria. Will have Dr. Paz review options. 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 Plan: patient warned of signs/symptoms of retinal detachment and to return immediately if occur. 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 CDM Reports - EYEGEN Id: [id number] Status: Fnl documented in this encounter Plan of Treatment Upcoming Encounters Date Type Department Care Team (Late st Contact Info) Description 09/19/2024 2:00 PM CDT Office Visit Department of Community Internal Medicine in [place], [place] [address] [place] [phone] Susi Lemus MPAS, P.A.-C. [address] [place] [phone] 11/01/2024 12:00 PM CDT Comprehensive Visit Department of Neurology in [place], [place] [address] [place] [phone] Lang Olguin M.D. [address] [place] [phone] documented as of this encounter Visit Diagnoses Not on filedocumented in this encounter Additional Health Concerns Infection Onset Date Last Indicated Resolved Time COVID19 Pending 09/30/2019 09/30/2019 10/01/2019 6 :52 PM CDT documented as of this encounter Care Teams Adjunct Psychology Professor Relationship Specialty Start Date End Date Susi Lemus MPAS, P.A.-C. [address] [place] [address] PCP - General Internal Medicine 08/02/24 documented as of this encounter
--- OUTSIDE RECORDS SUMMARY | 2024-08-30 00:30 | XMS_ITS | Encounter Summary ---
Author Organization [facility] Address [address] [place] [address] Care Team Providers Care Medical Office Rep Name Role Phone Susi Lemus P.A.-C. Primary Care Pro vider Encounter Details Date Type Department Care Team (Late st Contact Info) Description 09/22/2007 Historical Ophthalmology RST OPH Antonino Arias M.D. Social History Tobacco Use Types Packs/Day Years Used Date Smoking Tobacco: Never Assessed Comments Unknown Sex and Gender Information Value Date Recorded Sex Assigned at Female 03/22/2023 10:14 PM MOLD MAKER APPRENTICE Legal Sex Female 5:31 AM MOLD MAKER APPRENTICE Gender Identity Female 02/02/2018 11:17 AM MOLD MAKER APPRENTICE Sexual Orientation Straight 02/02/2018 11 :17 AM MOLD MAKER APPRENTICE documented as of this encounter Progress Notes * Antonino Arias M.D. - 09/22/2007 7:55 AM CDT Eye General CHIEF COMPLAINT 2 yr return HISTORY OF PRESENT ILLNESS Patient states that glasses have not been working for her the last several times, bifocals, and distance fluxuations. Patient denies ocular pain. Denies diplopia. Floaters once in a while. Feels likeshe is stumbling all the time. Current glassses were made without bifocals, does not like them. Very frustrated that she can not find glasses that work for her. IMPRESSION / REPORT / PLAN #1 Refractive error (myopic astigmatism, presbyopia). Not clear how best to manage glasses correction at work, so that she doesn't end up taking glasses on / off all the time. Options: a) standard lined bifocal, b) computer progressive, c) distance only. Also, may benefit from prismatic compensation for distance esophoria. Dr. Paz consult (06/14): advised to use single-vision distance and not bifocals. 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 Plan: patient warned of signs/symptoms of retinal detachment and to return immediately if occur. 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 CDM Reports - EYEGEN Id: [id number] Status: Fnl documented in this encounter Plan of Treatment Upcoming Encounters Date Type Department Care Team (Late st Contact Info) Description 09/19/2024 2:00 PM CDT Office Visit Department of Community Internal Medicine in [place], [place] [address] [place] [address] Susi Lemus MPAS, P.A.-C. [address] [place] [address] 11/01/2024 12:00 PM CDT Comprehensive Visit Department of Neurology in [place], [place] [address] [place] [address] Lang Olguin M.D. [address] [place] [address] documented as of this encounter Visit Diagnoses Not on filedocumented in this encounter Additional Health Concerns Infection Onset Date Last Indicated Resolved Time COVID19 Pending 09/30/2019 09/30/2019 10/01/2019 6 :52 PM CDT Assessment Noted Time PHQ-9 Depression Total Score: 15 008 4:27 PM CDT documented as of this encounter Care Teams Medical Office Rep Relationship Specialty Start Date End Date Susi Lemus MPAS, P.A.-C. [address] [place] [phone] PCP - General Internal Medicine 08/02/24 documented as of this encounter
--- OUTSIDE RECORDS SUMMARY | 2024-08-30 00:30 | XMS_ITS | Encounter Summary ---
Author Organization [facility] Address [address] [place] [address] Care Team Providers Care Stitcher Hand Name Role Phone uSsi Lemus P.A.-C. Primary Care Pro vider Encounter Details Date Type Department Care Team (Late st Contact Info) Description 09/06/2010 Historical Ophthalmology RST OPH [place] Murphy M.D. [address] [place] [address] Social History Tobacco Use Types Packs/Day Years Used Date Smoking Tobacco: Never Assessed Comments Unknown Sex and Gender Information Value Date Recorded Sex Assigned at Female 03/22/2023 10:14 PM WORK ORDER SORTING CLERK Legal Sex Female 5:31 AM WORK ORDER SORTING CLERK Gender Identity Female 02/02/2018 11:17 AM WORK ORDER SORTING CLERK Sexual Orientation Straight 02/02/2018 11 :17 AM WORK ORDER SORTING CLERK documented as of this encounter Progress Notes * [place] Murphy M.D. - 09/06/2010 7:49 AM CDT Eye Postoperative MULTI-VISIT DOCUMENT This document contains multiple patient visits and is available for review in Document Viewer. CDM Reports - EYEPO Id: [id number] Status: Fnl documented in this encounter Plan of Treatment Upcoming Encounters Date Type Department Care Team (Late st Contact Info) Description 09/19/2024 2:00 PM CDT Office Visit Department of Community Internal Medicine in [place], [place] [address] [place] [phone] Susi Lemus MPAS, P.A.-C. [address] [place] [phone] 11/01/2024 12:00 PM CDT Comprehensive Visit Department of Neurology in [place], [place] [address] [place] [address] Lang Olguin M.D. [address] [place] [address] documented as of this encounter Visit Diagnoses Not on filedocumented in this encounter Additional Health Concerns Infection Onset Date Last Indicated Resolved Time COVID19 Pending 09/30/2019 09/30/2019 10/01/2019 6 :52 PM CDT Assessment Noted Time PHQ-9 Depression Total Score: 15 08/31/ 008 4:27 PM CDT documented as of this encounter Care Teams Stitcher Hand Relationship Specialty Start Date End Date Susi Lemus MPAS, P.A.-C. [address] [place] [phone] PCP - General Internal Medicine 08/02/24 documented as of this encounter
--- OUTSIDE RECORDS SUMMARY | 2024-08-30 00:30 | XMS_ITS | Encounter Summary ---
Author Organization [facility] Address [address] [place] [address] Care Team Providers Care Application Support Lead Name Role Phone Susi Lemus P.A.-C. Primary Care Pro vider Encounter Details Date Type Department Care Team (Late st Contact Info) Description 06/25/2005 Historical Ophthalmology RST OPH Mello Paz O.D., Ph.D. Social History Tobacco Use Types Packs/Day Years Used Date Smoking Tobacco: Never Assessed Comments Unknown Sex and Gender Information Value Date Recorded Sex Assigned at Female 03/22/2023 10:14 PM COFFEE BREWER Legal Sex Female 5:31 AM COFFEE BREWER Gender Identity Female 02/02/2018 11:17 AM COFFEE BREWER Sexual Orientation Straight 02/02/2018 11 :17 AM COFFEE BREWER documented as of this encounter Progress Notes * Mello Paz O.D., Ph.D. - 06/25/2005 12:00 AM CDT Eye Subsequent Visit HISTORY OF PRESENT ILLNESS Referred by Dr Arias to design glasses Rx IMPRESSION / REPORT / PLAN #1 Refractive error (myopic astigmatism, presbyopia, anisometropia). Plan: spectacle prescription (Refraction 1) given. Anisometropia together with restricted near rock through progressive addition lenses are likely causes for difficulty using progressive addition lenses. Will have optical fit a narrow frame so she can look under it for near vision. Caution: This may not work for intermediate, using her less minus right eye, since this work would typically be higher. Alternative, consider computer progressive addition lenses. DIAGNOSIS #1 Refractive error (myopic astigmatism, presbyopia, anisometropia). CDM Reports - EYESV Id: [id number] Status: Fnl documented in this encounter Plan of Treatment Upcoming Encounters Date Type Department Care Team (Late st [facility] Info) Description 09/19/2024 2:00 PM CDT Office Visit Department of Community Internal Medicine in [place], [place] [address] [place] [address] Susi Lemus MPAS, P.A.-C. [address] [place] [phone] 11/01/2024 12:00 PM CDT Comprehensive Visit Department of Neurology in [place], [place] [address] [place] [address] Lang Olguin M.D. [address] [place] [address] documented as of this encounter Visit Diagnoses Not on filedocumented in this encounter Additional Health Concerns Infection Onset Date Last Indicated Resolved Time COVID19 Pending 09/30/2019 09/30/2019 10/01/2019 6 :52 PM CDT documented as of this encounter Care Teams Application Support Lead Relationship Specialty Start Date End Date Susi Lemus MPAS, P.A.-C. [address] [place] [phone] PCP - General Internal Medicine 08/02/24 documented as of this encounter
--- OUTSIDE RECORDS SUMMARY | 2024-08-30 00:30 | XMS_ITS ---
Author Organization [facility] Care Team Providers Care Cake Press Operator Helper Name Role Phone James Gomes Unavailable Unavailable [facility] Unavailable Unavailable Kalyan Worthy Unavailable Unavailable Allergies and adverse reactions Code CodeSystem Substance Reaction Severity StartDate Concern Status 012245942 SNOMED CT NSAIDs Unknown Unknown active Care Team Name Role Address Phone Organization Dates James Gomes [facility] [address] [place] [address], [facility], [place] (Office): [facility] 01/05/2023 - 03/15/2023 [facility] [place] (Office): [facility] 01/05/2023 - 03/15/2023 Kalyan Worthy [address], [facility], [facility] (Office): : [facility] 01/05/2023 - 03/15/2023 Goals Section Goals Description Status Target Date Ability to plan and go on a trip into the community using accessible public transportation. Active 05/07/2023 Awareness of 3 community leisure resources of [facility]. Active 05/07/2023 Client will bhave improved continence of bowel a nd bladder Active 05/07/2023 Client will feel safe during their stay. Active 05/07/2023 Client will not be resuscitated per MD orders Ac tive 05/07/2023 Client will work with therap y's as ordered to attain the highest practicable level of functioning. Active 05/07/2023 Communicate appropriately withe others Active 05/07/2023 Demonstrate steady gait/ balance Active 05/07/2023 Develop a discharge plan Active Develop skills necessary to participate in 5 leisure pursuits independently or with minimal assistance. Active 05/07/2023 Free from unnecessary drugs Active 04/10 Have no injury related to medication usage/ side effects Active 05/07/2023 No falls Active 05/07/2023 No injury from falls Active 05/07/2023 Participant demonstrates the ability to use compensatory strategies to increase activity tolerance. Active 05/07/2023 Participant will demonstrate a knoweldge of risk factors and interventions for preventing skin breakdown. Active Participant will express that they have adequate rest. Active 05/07/2023 Participant will participate in plan to prevent pressure ulcers. Active 05/07/2023 Participant's skin will chyna in intact with no signs/symptoms of irritation. Active 05/07/2023 Participate in 2 community trips each month. Act fadi 05/07/2023 Participate in leisure opportunities during unst ructured time. Active 05/07/2023 Performs activities of daily living without being compromised by pain. Active 05/07/2023 Show improvement in mood/ behavior Active 05/07/2023 Show no signs of hallucinating or delusional thi nking Active 05/07/2023 Show no signs of tremors Active Stable emotional status. Active The client interacts appropriately with environm ent Active 05/07/2023 The client will amintain opt imal quality of life within limitation imposed by visual function. Active 05/07/2023 To show minimal/ no side effects of medications taken Active 05/07/2023 Verbalizes or gives evidence that there is a reduction in the amount of pain. Active 05/07/2023 Verbalizes reasonable comfort. Active 0 05/07/2023 Will increase knoweldge of m edication and make informed decision on continued use. Active 05/07/2023 Will reduce risk of abuse/ne glect to self or other vulnerable adults. Active 05/07/2023 Wt will maintain between 200 -210#, meal intakes at least 75%, intact skin, labs WNL, adequate hydration status Active Immunizations Immunization Status Vaccine Details Vaccine Code CodeSystem Date Notes Influenza cancelled Influenza, high-dose, split virus, quadrivalent, injectable, preservative free 197 CVX created date: 3 consent date: 3 Educated by Joseline Francis RN on 01/05/2023 last flu immunization in 2019, she stated she didn't want it this season Pneumovax Dose 1 completed pneumococcal polysaccharide vaccine, 23 valent 33 CVX created date: 3 administe red date: 2 Pneumovax Dose 1 completed pneumococcal polysaccharide vaccine, 23 valent 33 CVX created date: 3 administe red date: 8 TB 2 Step Mantoux Skin Test completed tuberculin skin test; unspecified formulation lotNumber: [id number] expiry: 03/08/2026 Mfg: [employer] Given 0.1 ml Right Forearm intradermally Step 2 of Multi-step with next step required 98 CVX created date: 3 consent date: 3 administe red date: 3 TB 2 Step Mantoux Skin Test completed tuberculin skin test; unspecified formulation lotNumber: [id number] expiry: 03/08/2026 Mfg: sanifAvtal24 pasteur limited Given 0.1 ml Left Forearm intradermally Step 1 of Multi-step with next step required 98 CVX created date: 3 consent date: 3 administe red date: 3 Educated by Bashir Talbert RN on 01/05/2023 Prevnar 13 completed pneumococcal conjugate vaccine, 13 valent 133 CVX created date: 3 administe red date: 9 SARS-COV-2 (COVID-19) cancelled SARS-COV-2 (COVID-19) vaccine, mRNA, spike protein, LNP, preservative free, 50 mcg/0.5 mL dose 312 CVX created date: 3 consent date: 3 Educated by Simone Ashby RN on 01/06/2023 Client refused booster SARS-COV-2 (COVID-19) completed SARS-COV-2 (COVID-19) vaccine, mRNA, spike protein, LNP, preservative free, 100 mcg/0.5mL dose or 50 mcg/0.25mL dose Mfg: Moderna booster Step 1 of Multi-step with next step required 207 CVX created date: 3 administe red date: 2 SARS-COV-2 (COVID-19) completed SARS-COV-2 (COVID-19) vaccine, mRNA, spike protein, LNP, preservative free, 100 mcg/0.5mL dose or 50 mcg/0.25mL dose Mfg: Moderna Step 2 of Multi-step with next step required 207 CVX created date: 3 administe red date: 1 SARS-COV-2 (COVID-19) completed SARS-COV-2 (COVID-19) vaccine, mRNA, spike protein, LNP, preservative free, 100 mcg/0.5mL dose or 50 mcg/0.25mL dose Mfg: Moderna Step 1 of Multi-step with next step required 207 CVX created date: 3 administe red date: 1 Medications Section Medication Name Status Code CodeSystem Dose Route Frequency Admin Type Sig Text Start Date End Date Acetaminophen Oral Tablet active 1000 mg Oral as needed PRN Give 1000 mg by mouth every 6 hours as needed for pain/h eadach e NTE 4000mg /24h 2022 - Gabapentin Oral Capsule active 100 mg Oral at bedtime Routine Give 100 mg by mouth at bedtim e for mixed anxiet y depres sive disord er 10/31/ 2023 - Miconazole Nitrate Powder 2 % active n/a n/a Topical every day and evening shift Routine Apply to under bilat breast s topica lly every day and evenin g shift for rash do not place over incisi on, wound or skin rash areas, until resolv ed. 2022 - Sennosides Oral Tablet 8.6 MG active 562031 RXNORM 2 tablet Oral one time a day Routine Give 2 tablet by mouth one time a day for consti pation 2022 - Lidocaine External Cream 4 % active 3430445 RXNORM n/a n/a Topical as needed PRN Apply to affect ed area(s ) topica lly as needed for CPS 4x/day 2022 - Apixaban Oral Tablet active 5 mg Oral two times a day Routine Give 5 mg by mouth two times a day for A fib 2022 - Atorvastatin Calcium Oral Tablet active 80 mg Oral at bedtime Routine Give 80 mg by mouth at bedtim e for hyperl ipidem ia 2022 - DULoxetine HCl Oral Capsule Delayed Release Particles active 120 mg Oral in the morning Routine Give 120 mg by mouth in the mornin g for mixed anxiet y depres sive disord er 2022 - Mirtazapine Oral Tablet active 7.5 mg Oral at bedtime Routine Give 7.5 mg by mouth at bedtim e for depres rodrick/i nsomni a 2022 - Baclofen Oral Tablet active 5 mg Oral in the morning Routine Give 5 mg by mouth in the mornin g for muscle spasms AND Give 10 mg by mouth in the evenin g for muscle spasms AND Give 5 mg by mouth as needed for Spasms [facility] 2022 - 10 mg Oral in the evening Routine Give 5 mg by mouth in the mornin g for muscle spasms AND Give 10 mg by mouth in the evenin g for muscle spasms AND Give 5 mg by mouth as needed for Spasms [facility] 2022 - 5 mg Oral as needed PRN Give 5 mg by mouth in the mornin g for muscle spasms AND Give 10 mg by mouth in the evenin g for muscle spasms AND Give 5 mg by mouth as needed for Spasms [facility] 2022 - Mental Status Section Date Assessment Total Score Description 03/15/2023 BIMS 15 cognitively int act CAM 0 No delirium ind icated PHQ-9 00 01/12/2023 BIMS 15 cognitively int act CAM 0 No delirium ind icated PHQ-9 00 Problems Problem # Description Date of onset Resolved Date Code CodeSystem Concern Status 1 ABNORMAL POSTURE [address] active 2 ANESTHESIA OF SKIN [address] active 3 ANXIETY DISORDER DUE TO KNOWN PHYSIOLOGICAL CONDITION [address] active 4 BIPOLAR DISORDER, UNSPECIFIED [address] active 5 BODY MASS INDEX [BMI] 37.0-37.9, ADULT [address] active 6 CEREBRAL INFARCTION DUE TO EMBOLISM OF LEFT MIDDLE CEREBRAL ARTERY [address] active 7 CHRONIC KIDNEY DISEASE, STAGE 3 UNSPECIFIED [address] active 8 CHRONIC PAIN DUE TO TRAUMA [address] active 9 DIZZINESS AND GIDDINESS [address] active 10 DO NOT RESUSCITATE [address] active 11 DYSARTHRIA AND ANARTHRIA [address] active 12 DYSARTHRIA FOLLOWING CEREBRAL INFARCTION [address]60[address] active 13 DYSPHAGIA FOLLOWING CEREBRAL INFARCTION [address] active 14 DYSPHAGIA, UNSPECIFIED [address] active 15 FACIAL WEAKNESS [address] active 16 FOOT DROP, RIGHT FOOT [address] active 17 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 [address] active 18 HYPERLIPIDEMIA, UNSPECIFIED [address] active 19 [address]XEMIA [address] active 20 IMPACTED CERUMEN, UNSPECIFIED EAR [address] active 21 INSOMNIA DUE TO MEDICAL CONDITION [address] active 22 SHELTER (CURRENT) USE OF ANTICOAGULANTS [address] active 23 MUSCLE WEAKNESS (GENERALIZED) [address] active 24 NEUROGENIC BOWEL, NOT ELSEWHERE CLASSIFIED [address] active 25 NEUROLOGIC NEGLECT SYNDROME [address] active 26 NEUROMUSCULAR DYSFUNCTION OF BLADDER, UNSPECIFIED [address] active 27 NIHSS SCORE 17 3 R29.717 ICD-10-CM active 28 NONTRAUMATIC INTRACEREBRAL HEMORRHAGE IN HEMISPHERE, CORTICAL [address] active 29 OBESITY, UNSPECIFIED [address] active 30 OTHER ABNORMALITIES OF GAIT AND MOBILITY [address] active 31 OTHER CONSTIPATION [address] active 32 OTHER FATIGUE [address] active 33 OTHER REDUCED MOBILITY [address] active 34 OTHER SEQUELAE OF CEREBRAL INFARCTION [address] active 35 OTHER SPECIFIED DISORDERS OF EYE AND ADNEXA [address] active 36 OTHER SYMPTOMS AND SIGNS INVOLVING COGNITIVE FUNCTIONS AND AWARENESS [address] active 37 POST-TRAUMATIC STRESS DISORDER, UNSPECIFIED [address] active 38 RENAL AGENESIS, UNILATERAL [address] active 39 SEDATIVE, HYPNOTIC OR ANXIOLYTIC ABUSE, UNCOMPLICATED [address] active 40 SLURRED SPEECH [address] active 41 STATUS POST ADMINISTRATION OF TPA (RTPA) IN A DIFFERENT FACILITY WITHIN THE LAST 24 HOURS PRIOR TO ADMISSION TO CURRENT FACILITY 3 Z92.82 ICD-10-CM active 42 UNILATERAL PRIMARY OSTEOARTHRITIS, UNSPECIFIED KNEE [address] active 43 UNSPECIFIED ATRIAL FIBRILLATION [address] active 44 UNSPECIFIED ATRIAL FLUTTER [address] active 45 UNSPECIFIED SYMPTOMS AND SIGNS INVOLVING COGNITIVE FUNCTIONS FOLLOWING CEREBRAL INFARCTION [address] active 46 UNSPECIFIED URINARY INCONTINENCE [address] active 47 UNSPECIFIED VISUAL DISTURBANCE [address] active 48 UNSPECIFIED VISUAL LOSS [address] active 49 UNSTEADINESS ON FEET [address] active 50 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 [address] active 51 HEMIPLEGIA, UNSPECIFIED AFFECTING RIGHT NONDOMINANT SIDE [address] active Reason for Referral No Reasons for Referral Entered Social History Social History Observation Description Start Date End Date Code Code System Current Smoking Status Tobacco smoking consumption unknown 962615393 SNOMED CT Sex Assigned At Female 1950 54870-1 [facility] Gender Identity Vital Signs Code Code System Vitals Name Values and Units Timing Information 82813-7 [facility] O2 % BldC Oximetry Value=94.0 Units= % 03/15/2023 9279-1 [facility] Respiratory Rate Value=17.0 Units=/m in 03/14/2023 8310-5 [facility] Body Temperature Value=98.4 Units= F 03/14/2023 8462-4 [facility] Blood Pressure-Diastolic Value=61 Un its=mmHg 03/14/2023 8480-6 [facility] Blood Pressure-Systolic Tlmtm=945 Un its=mmHg 03/14/2023 8867-4 [facility] Heart rate Value=72.0 Units=/min 08/2023 55671-5 [facility] Pain Level Value=2.0 03/14/2023 8302-2 [facility] Height Value=61.0 Units=Inches 03/10/2023 63771-3 [facility] Weight Eukfs=239.2 Units=Lbs 03/2023
--- OUTSIDE RECORDS SUMMARY | 2024-08-30 00:30 | XMS_ITS | Encounter Summary ---
Author Organization [facility] Address [address] [place] [address] Care Team Providers Care Supervisor Agency Appointments Name Role Phone Susi Lemus P.A.-C. Primary Care Pro vider Encounter Details Date Type Department Care Team (Late st Contact Info) Description 12/08/2003 Historical Ophthalmology [facility] Antonino Arias M.D. Social History Tobacco Use Types Packs/Day Years Used Date Smoking Tobacco: Never Assessed Comments Unknown Sex and Gender Information Value Date Recorded Sex Assigned at Female 03/22/2023 10:14 PM PRIVATE EYE Legal Sex Female 5:31 AM PRIVATE EYE Gender Identity Female 02/02/2018 11:17 AM PRIVATE EYE Sexual Orientation Straight 02/02/2018 11 :17 AM PRIVATE EYE documented as of this encounter Progress Notes * Antonino Arias M.D. - 12/08/2003 12:00 AM CDT Eye General CHIEF COMPLAINT blurred vision HISTORY OF PRESENT ILLNESS Has never been comfortable at near with progressives. Is frustrated because of the need to take glasses off to read. Wears a progressive lenses. For near and intermediate vision glasses are taken off. Now on her 3rd pair of progressives and has never been comfortable at near, but is comfortable at distance. IMPRESSION / REPORT / PLAN #1 Refractive error (myopic astigmatism, presbyopia). Plan: spectacle prescription given. 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 More comfortable without glasses for reading. Could try monovision contact lenses. DIAGNOSIS #1 Refractive error (myopic astigmatism, presbyopia). CDM Reports - EYEGEN Id: [id number] Status: Fnl documented in this encounter Plan of Treatment Upcoming Encounters Date Type Department Care Team (Late st Contact Info) Description 09/19/2024 2:00 PM CDT Office Visit Department of Community Internal Medicine in [place], [place] [address] [place] [phone] Susi Lemus MPAS, P.A.-C. [address] [place] [phone] 11/01/2024 12:00 PM CDT Comprehensive Visit Department of Neurology in [place], [place] [address] [place] [address] Lang Olguin M.D. [address] [place] [phone] documented as of this encounter Visit Diagnoses Not on filedocumented in this encounter Additional Health Concerns Infection Onset Date Last Indicated Resolved Time COVID19 Pending 09/30/2019 09/30/2019 10/01/2019 6 :52 PM CDT documented as of this encounter Care Teams Supervisor Agency Appointments Relationship Specialty Start Date End Date Susi Lemus MPAS, P.A.-C. [address] [place] [phone] PCP - General Internal Medicine 08/02/24 documented as of this encounter
--- OUTSIDE RECORDS SUMMARY | 2024-08-30 00:30 | XMS_ITS | Encounter Summary ---
Author Organization [facility] Address [address] [place] [id number] Care Team Providers Care Bargain Table Clerk Name Role Phone Susi Lemus P.A.-C. Primary Care Pro vider Encounter Details Date Type Department Care Team (Late st Contact Info) Description 06/28/2010 Historical Ophthalmology [facility] [place] Murphy M.D. [address] [place] [address] Social History Tobacco Use Types Packs/Day Years Used Date Smoking Tobacco: Never Assessed Comments Unknown Sex and Gender Information Value Date Recorded Sex Assigned at Female 03/22/2023 10:14 PM OPEN TENTER OPERATOR Legal Sex Female 5:31 AM OPEN TENTER OPERATOR Gender Identity Female 02/02/2018 11:17 AM OPEN TENTER OPERATOR Sexual Orientation Straight 02/02/2018 11 :17 AM OPEN TENTER OPERATOR documented as of this encounter Progress Notes * [place] Murphy M.D. - 06/28/2010 9:09 AM CDT Eye General CHIEF COMPLAINT both eyes droop upper eyelids HISTORY OF PRESENT ILLNESS Patient has noted the gradual onset, over several years, of droopy eyelids. Increasingly finds thatthe peripheral visual field is restricted, interfering with reading, driving, and other activities of daily living. No previous eyelid surgery. No double vision or systemic muscle weakness. No dry eye symptoms. IMPRESSION / REPORT / PLAN #1 Ptosis, left upper eyelid #2 Dermatochalasis, both upper eyelids #3 Mild left brow ptosis The upper eyelid malpositions are visually significant by symptoms and examination. Perimetry documented superior visual field restriction to ~ 25?? above fixation for the right eye and to ~ 22?? above fixation for the left eye, with > 25 improvement when eyelids raised manually to normal position. Surgery is reasonable. 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 She is not interested in browplasty. Expectations and risks, including blindness and dry eye symptoms, discussed. The patient understands and wishes to proceed. Uncertainties of insurance coverage reviewed; will submit to [facility] for preauthorization. Patient asked to avoid aspirin, NSAIDs, and other anticoagulants for 10 days preoperatively if medically safe to do so. DIAGNOSIS #1 Ptosis, left upper eyelid #2 Dermatochalasis, both upper eyelids #3 Mild left brow ptosis CDM Reports - EYEGEN Id: [id number] Status: Fnl documented in this encounter Plan of Treatment Upcoming Encounters Date Type Department Care Team (Late st Contact Info) Description 09/19/2024 2:00 PM CDT Office Visit Department of Community Internal Medicine in [place], [place] [address] [place] [phone] Susi Lemus MPAS, P.A.-C. [address] [place] [phone] 11/01/2024 12:00 PM CDT Comprehensive Visit Department of Neurology in [place], [place] [address] [place] [phone] Lang Olguin M.D. [address] [place] [phone] documented as of this encounter Visit Diagnoses Not on filedocumented in this encounter Additional Health Concerns Infection Onset Date Last Indicated Resolved Time COVID19 Pending 09/30/2019 09/30/2019 10/01/2019 6 :52 PM CDT Assessment Noted Time PHQ-9 Depression Total Score: 15 08/31/2 008 4:27 PM CDT documented as of this encounter Care Teams Bargain Table Clerk Relationship Specialty Start Date End Date Susi Lemus MPAS, P.A.-C. [address] [place] [phone] PCP - General Internal Medicine 08/02/24 documented as of this encounter
--- OUTSIDE RECORDS SUMMARY | 2024-08-30 00:30 | XMS_ITS | Encounter Summary ---
Author Organization [facility] Address [address] [place] [address] Care Team Providers Care Business Objects Analyst Name Role Phone Susi Lemus, P.A.-C. Primary Care Pro vider Reason for Visit * Reason Onset Date Comments Med Refill 08/02/2024 Encounter Details Date Type Department Care Team (Late st Contact Info) Description 08/02/2024 Refill Department of Community Internal Medicine in [place], [place] [address] [place] [phone] Susi Lemus MPAS, P.A.-C. [address] [place] [phone] Med Refill Social History Tobacco Use Types Packs/Day Years Used Date Smoking Tobacco: Never Passive Smoke Exposure: Past Smokeless Tobacco: Never Alcohol Use Standard Drinks/Week Comments No 0 (1 standard drink = 0.6 oz pur e alcohol) [facility] Utilities Answer Date Recorded In the past 12 months has [employer] electric, gas, oil, or water company threatened to shut off services in your home? No 03/22/2023 Humiliation, Afraid, Rape, and Kick questionnair e [...] the money to buy more. Never true 03/22/19 24 Within the past 12 months, t he food you bought just didn't last and you didn't have money to get more. Never true 03/22/2023 PRAPARE - Transportation Answer Date Re corded In the past 12 months, has l ack of transportation kept you from medical appointments or from getting medications? Yes 03/09 In the past 12 months, has l ack of transportation kept you from meetings, work, or from getting things needed for daily living? Yes 03/22/2023 Depression Answer Date Recor ded PHQ-9 Total Score (max 27) 10 06/18 Housing Stability Answer Date Recorded What is your living situation today? I have a [facility] place to live 03/22/2023 Education Answer Date Recorded What is the highest level of school you have completed or the highest degree you have received? Associate degree: occupational, technical, or vocational program 12/09/2021 Comments No Sex and Gender Information Value Date Recorded Sex Assigned at Female 03/22/2023 10:14 PM MANAGER OF MERCHANDISING Legal Sex Female 5:31 AM MANAGER OF MERCHANDISING Gender Identity Female 02/02/2018 11:17 AM MANAGER OF MERCHANDISING Sexual Orientation Straight 02/02/2018 11 :17 AM MANAGER OF MERCHANDISING documented as of this encounter Plan of Treatment Upcoming Encounters Date Type Department Care Team (Late st Contact Info) Description 09/19/2024 2:00 PM CDT Office Visit Department of Community Internal Medicine in [place], [place] [address] [facility] [place] [phone] Susi Lemus MPAS, P.A.-C. [address] [facility] [place] [phone] 11/01/2024 12:00 PM CDT Comprehensive Visit Department of Neurology in [place], [place] [address] [place] [address] Lang Olguin M.D. [address] [place] [address] documented as of this encounter Visit Diagnoses Not on filedocumented in this encounter Additional Health Concerns Assessment Noted Time PHQ-9 Depression Total Score: 10 022 2:11 PM CDT documented as of this encounter Care Teams Business Objects Analyst Relationship Specialty Start Date End Date Susi Lemus MPAS, P.A.-C. [address] [place] [phone] PCP - General Internal Medicine 08/02/24 documented as of this encounter
--- OUTSIDE RECORDS SUMMARY | 2024-08-30 00:30 | XMS_ITS | Encounter Summary ---
Author Organization [facility] Address [address] [place] [address] Care Team Providers Care Linoleum Floor Layer Name Role Phone Susi Lemus P.A.-C. Primary Care Pro vider Encounter Details Date Type Department Care Team (Late st Contact Info) Description 06/19/2010 Historical Ophthalmology RST OPH Racheal Gunderson O.D. Social History Tobacco Use Types Packs/Day Years Used Date Smoking Tobacco: Never Assessed Comments Unknown Sex and Gender Information Value Date Recorded Sex Assigned at Female 03/22/2023 10:14 PM CONTROL DIRECTOR Legal Sex Female 5:31 AM CONTROL DIRECTOR Gender Identity Female 02/02/2018 11:17 AM CONTROL DIRECTOR Sexual Orientation Straight 02/02/2018 11 :17 AM CONTROL DIRECTOR documented as of this encounter Progress Notes * Racheal Lopez O.D. - 06/19/2010 12:49 PM CDT Eye General CHIEF COMPLAINT lost glasses HISTORY OF PRESENT ILLNESS Patient lost her glasses and states they were useless. She is not able to wear bifocals, states shestumbles and falls. Distance vision is a little better without her glasses. Patient reports visual acuity stable. Denies flashes, new floaters, and diplopia. Denies ocular pain. IMPRESSION / REPORT / PLAN #1 Refractive error (myopic astigmatism, presbyopia). Plan: spectacle prescription (Refraction 1) given. #2 dermatochalasis - upper eye lids - refer to oculoplastics. DIAGNOSIS #1 Refractive error (myopic astigmatism, presbyopia). #2 dermatochalasis - upper eye lids - refer to oculoplastics. CDM Reports - EYEGEN Id: [id number] Status: Fnl documented in this encounter Plan of Treatment Upcoming Encounters Date Type Department Care Team (Late st [facility] Info) Description 09/19/2024 2:00 PM CDT Office Visit Department of Community Internal Medicine in [place], [place] [address] [place] [address] Susi Lemus MPAS, P.A.-C. [address] [place] [phone] 11/01/2024 12:00 PM CDT Comprehensive Visit Department of Neurology in [place], [place] [address] [place] [address] Lang Olguin M.D. [address] [place] [address] documented as of this encounter Visit Diagnoses Not on filedocumented in this encounter Additional Health Concerns Infection Onset Date Last Indicated Resolved Time COVID19 Pending 09/30/2019 09/30/2019 10/01/2019 6 :52 PM CDT Assessment Noted Time PHQ-9 Depression Total Score: 15 08/31/ 008 4:27 PM CDT documented as of this encounter Care Teams Linoleum Floor Layer Relationship Specialty Start Date End Date Susi Lemus MPAS, P.A.-C. [address] [place] [phone] PCP - General Internal Medicine 08/02/24 documented as of this encounter
--- OUTSIDE RECORDS SUMMARY | 2024-08-30 00:30 | XMS_ITS | Encounter Summary ---
Author Organization [facility] Address [address] [place] [address] Care Team Providers Care Telephone Station Repairer Name Role Phone Susi Lemus P.A.-C. Primary Care Pro vider Reason for Visit * Reason Comments Med Refill Encounter Details Date Type Department Care Team (Late st Contact Info) Description 08/12/2024 Refill Department of Community Internal Medicine in [place], [place] [address] [place] [address] Manish Zhu M.D. [address] [place] [phone] Med Refill Social History Tobacco Use Types Packs/Day Years Used Date Smoking Tobacco: Never Passive Smoke Exposure: Past Smokeless Tobacco: Never Alcohol Use Standard Drinks/Week Comments No 0 (1 standard drink = 0.6 oz pur e alcohol) [facility] Utilities Answer Date Recorded In the past 12 months has e electric, gas, oil, or water [place] threatened to shut off services in your [...] your living situation today? I have a [facility] place to live 08/15/2024 Education Answer Date Recorded What is the highest level of school you have completed or the highest degree you have received? Associate degree: occupational, technical, or vocational program 12/09/2021 Comments No Sex and Gender Information Value Date Recorded Sex Assigned at Female 03/22/2023 10:14 PM RECORDS MANAGEMENT TECHNICIAN Legal Sex Female 5:31 AM RECORDS MANAGEMENT TECHNICIAN Gender Identity Female 02/02/2018 11:17 AM RECORDS MANAGEMENT TECHNICIAN Sexual Orientation Straight 02/02/2018 11 :17 AM RECORDS MANAGEMENT TECHNICIAN documented as of this encounter Plan of Treatment Upcoming Encounters Date Type Department Care Team (Late st Contact Info) Description 09/19/2024 2:00 PM CDT Office Visit Department of Community Internal Medicine in [place], [place] [address] [facility] [place] [phone] Susi Lemus MPAS, P.A.-C. 300 [facility] [place] [id number] 11/01/2024 12:00 PM CDT Comprehensive Visit Department of Neurology in [place], [place] [address] [place] [address] Lang Olguin M.D. [address] [place] [address] documented as of this encounter Visit Diagnoses Not on filedocumented in this encounter Additional Health Concerns Assessment Noted Time PHQ-9 Depression Total Score: 10 022 2:11 PM CDT documented as of this encounter Care Teams Telephone Station Repairer Relationship Specialty Start Date End Date Susi Lemus MPAS, P.A.-C. [address] [place] [phone] PCP - General Internal Medicine 08/02/24 documented as of this encounter
--- OUTSIDE RECORDS SUMMARY | 2024-08-30 00:31 | XMS_ITS | Clinical Summary ---
Author Organization [facility] Address [address] [place] [address] Care Team Providers Care Adult Crossing Guard Name Role Phone Susi Lemus P.A.-C. Primary Care Pro vider Source Comments Patient records contain information from all sites at [facility]. For routine questions regarding patient records, call [phone] during business hours, M-F 8:00 AM - 5:00 PM Central Time. Record requests for emergency care only can be directed to [phone] at any time.[facility] Allergies Active Allergy Reactions Criticality Noted Date Comments Nsaids (Non-Steroidal Anti-Inflammatory Drug) Renal Failure Medium 02/20/2003 Elevated creatinine due to only having one kidney Medications UNABLE TO FIND Take by mouth daily. Med Name: Instaflex Active acetaminophen (TYLENOL) 500 mg tablet Take 1,000 mg by mouth every 6 (six) hours as needed. 024 Active miconazole (MICATIN) 2 % cream APPLY TOPICALLY TO AFFECTED SKIN UNDER BILATERAL BREASTS (ESPECIALLY RIGHT BREAST) TWICE DAILY UNTIL RESOLVED. DO NOT PLACE OVER {ADTDIR} 024 Active lidocaine HCL (ASPERCREME) 4 % cream cream Apply topically to intact skin 4 times daily for neuropathic or musculoskeletal pain. Do not place over incision, wound, or rash area. 024 Active lidocaine (LMX) 4 % cream APPLY TOPICALLY TO INTACT SKIN 4 TIMES DAILY FOR NEUROPATHIC OR MUSCULOSKELETAL PAIN. DO NOT PLACE OVER INCISION, WOUND, OR RASH AREA. Active ketoconazole (NIZORAL) 2 % shampoo Shampoo twice weekly , leave on for 5-10 minutes, then rinse. 120 mL Active senna 8.6 mg tablet TAKE 2 TABLETS (17.2 MG) BY MOUTH ONCE DAILY. 180 tablet 3 Active miconazole 2 % powder Apply topically daily. Apply to under breast after shower . 43 g 08/03/19 2:11 PM CDT 025 Active gabapentin (Neurontin) 100 mg capsule TAKE 1 CAPSULE (100 MG TOTAL) BY MOUTH AT BEDTIME. 90 capsule 3 08/18/19 1:16 PM CDT 025 Active DULoxetine (Cymbalta) [address] capsule TAKE 2 CAPSULES (120 MG TOTAL) BY MOUTH DAILY. 180 capsule 3 08/18/19 1:17 PM CDT 025 Active Eliquis 5 mg tablet TAKE 1 TABLET (5 MG TOTAL) BY MOUTH 2 (TWO) TIMES A DAY. 180 tablet 3 08/18/19 1:17 PM CDT 025 Active baclofen (LioresaL) 10 mg tablet TAKE 1 TABLET (10 MG TOTAL) BY MOUTH 2 (TWO) TIMES A DAY. 180 tablet 3 08/18/19 1:17 PM CDT 025 Active atorvastatin (Lipitor) 80 mg tablet TAKE 1 TABLET (80 MG TOTAL) BY MOUTH AT BEDTIME. 90 tablet 3 08/18/19 1:16 PM CDT 025 Active WHEELCHAIR [facility] Wheelchair: Standard with leg rests: (Swing away Length of need: 99 months 023 Active DME Oxygen Oxygen for home use. Liters per minute: 2 per nasal cannula. Frequency of use: Nocturnal;. Length of need: 99 Months. Active busPIRone (BuSpar) 5 mg tablet Take 1 tablet (5 mg total) by mouth 2 (two) times a day. 180 tablet 08/18/19 1:16 PM CDT 025 Active atorvastatin (LIPITOR) 80 mg tablet Take 1 tablet (80 mg total) by mouth at bedtime. 90 tablet 3 2024 Discontinued baclofen (LioresaL) 10 mg tablet Take 1 tablet (10 mg total) by mouth 2 (two) times a day. 180 tablet 3 024 2024 Discontinued DULoxetine (CYMBALTA) [address] capsule Take 2 capsules (120 mg total) by mouth daily. 180 capsule 3 024 2024 Discontinued apixaban (Eliquis) 5 mg tablet Take 1 tablet (5 mg total) by mouth 2 (two) times a day. 180 tablet 3 024 2024 Discontinued gabapentin (NEURONTIN) 100 mg capsule Take 1 capsule (100 mg total) by mouth at bedtime. 90 capsule 3 024 2024 Discontinued miconazole (MICATIN) 2 % powder Apply topically daily. Apply to under breast after shower . 85 g 11 024 2024 Discontinued(R eorder) fexofenadine (LALITO) 180 mg tablet Take 1 tablet (180 mg total) by mouth as needed for allergies. 90 tablet 3 024 2024 mirtazapine (Remeron) 7.5 mg tablet Take 7.5 mg by mouth daily. 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 Patent Foramen Ovale 12/07/2017 Overview (12/07/2017): PFO with Right to left shunt on Valsalva. 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 Severe Mixed Bipolar I Disorder Without Psychosi s 12/18/2016 Chronic Pain Syndrome 08/21/2013 Posttraumatic Stress Disorder Prolonged 05/06/19 11 Depression Major Recurrent Moderate 09/01/2007 Anxiety Generalized Disorder 08/13/2007 Obesity Body Mass Index 30-39.9 Adult 04/06/2006 Hyperlipidemia 02/23/2006 Resolved Problems Problem Noted Date Diagnosed Date Resolved Date Body Mass Index 40.0 To 44.9 Adult 08/14/2021 08/26/2021 History Of Falling 03/14/2019 2 Body Mass Index 40.0 To 44.9 Adult 03/14/2019 04/05/2023 Cerumen Impacted Bilateral 10/27/2017 0 08/26/2021 Primary Osteoarthritis Knee Bilateral 01/10/2017 08/26/2021 Fatigue Chronic 12/27/2012 08/26/2021 Encounters Date Type Department Care Team Description 08/17/2024 Results Follow-Up Department of Community Internal Medicine in [address] [phone] Susi Lemus MPAS, P.A.-C. ECG 12 Lead, Lipid Panel, Hemoglobin A1c, Additional followed-up results: 2 08/15/2024 1:45 PM CDT - 08/15/2024 11:59 PM CDT Hospital Encounter Department of Laboratory Medicine in [address] [phone] Susi Lemus MPAS, P.A.-C. Hyperlipidemia; Screening Examination Diabetes Mellitus; Solitary Kidney Congenital Discharge Disposition: Home or Self Care 08/15/2024 1:45 PM CDT - 08/15/2024 11:59 PM CDT Hospital Encounter Department of Laboratory Medicine in [address] [phone] Susi Lemus MPAS, P.A.-C. Atrial Fibrillation Unspecified (HCC) Discharge Disposition: Home or Self Care 08/15/2024 1:00 PM CDT Office Visit Department of Community Internal Medicine in [address] [phone] Susi Lemus MPAS, P.A.-C. Weakness Leg Right (Primary Dx); Stroke Cerebrovascular Accident Personal History; Hemiplegia And Hemiparesis Following Cerebral Infarction Affecting Right Dominant Side (HCC); Atrial Fibrillation Unspecified (HCC); Solitary Kidney Congenital; Chronic Kidney Disease (CKD), Stage 3b Glomerular Filtration Rate (GFR) 30 To 44 (HCC); Depression Major Recurrent Moderate (HCC); Posttraumatic Stress Disorder Prolonged; Chronic Pain Syndrome; Anxiety Generalized Disorder; Hyperlipidemia; Screening Examination Diabetes Mellitus 08/12/2024 Refill Department of Community Internal Medicine in [address] [phone] Manish Kaiser M.D. Med Refill 08/02/2024 Refill Department of Community Internal Medicine in [address] [phone] Susi Lemus MPAS, P.A.-C. Med Refill from Last 3 Months Immunizations Immunization Administration Dates Next Due HZV (ZOSTAVAX) 01/02/2015,12/22/2014(Deferred: Other) HepA Adult 12/27/1997,07/05/1997 HepB Adult 04/09/1992,11/15/1991,10/13/1991 Influenza Split 12/27/1997 Influenza TIV (IM) 02/24/2006,12/27/1997 Influenza, Seasonal, Injectable 02/24/2006 Influenza, Unspecified 12/25/1998 OPV, Unspecified 03/09/1961 PCV13 10/11/2018 PPSV23 06/18/2021,07/05/1997 RZV (SHINGRIX) 03/14/2019 SARS-COV-2 (COVID-19) - MODERNA(Discontinued) 06/18/2021,06/19/2020,05/18/2020 Td (Adult), adsorbed 10/09/1993 Td Preservative Free (TENIVA C, DECAVAC) 01/01/2017 Td, (Adult) Unspecified 10/09/1993 Tdap 02/24/2006 Tuberculin Skin Test, Unspecified 01/16/2023, influenza trivalent high dos e (HD)(PF) 03/14/2019 influenza trivalent vaccine (6 months and older)(PF) 01/22/2013,02/02/2012,01/29/2011 influenza vaccine quad (FLUZONE/FLUARIX) (6 months and older)(PF) 12/09/2016,01/02/2015 Family History Medical History Relation Name Comments Lung cancer Brother 1 emma cuadra Lung cancer Brother 2 emma cuadra Coronary artery disease Brother 3 Jhony cuadra Sleep apnea Brother 3 Jhony barkerlijany Stroke Father 1 patricia barkerligan Stroke Father 2 patricia barkerlijany Breast cancer Mother 1 Coronary artery disease Mother 2 zak mulligan Breast cancer Mother 3 zak mulligan Sister Ronda Molina Coronary artery disease Mother 3 zak mulligan Breast cancer Sister Mitzi molina Relation Name Status Comments Brother 1 emma mulligan Brother 2 emma barkerlijany Alive Brother 3 Jhony mulligan Alive Father 1 patricia mulligan Father 2 patricia mulligan Alive Mother 1 Mother 2 zak mulligan Mother 3 zak barkerligan Alive Sister Mitzi molina Alive Social History Tobacco Use Types Packs/Day Years Used Date Smoking Tobacco: Never Passive Smoke Exposure: Past Smokeless Tobacco: Never Alcohol Use Standard Drinks/Week Comments Not Currently 0 (1 standard drink = 0.6 oz pur e alcohol) basicly nil [facility] Utilities Answer Date Recorded In the past 12 months has [facility] [place], gas, oil, or water [employer] threatened to shut off services in your [...] Sex Assigned at Female 03/22/2023 10:14 PM TIN STACKER Legal Sex Female 5:31 AM TIN STACKER Gender Identity Female 02/02/2018 11:17 AM TIN STACKER Sexual Orientation Straight 02/02/2018 11 :17 AM TIN STACKER Last Filed Vital Signs Vital Sign Reading Time Taken Comments Blood Pressure 130/89 08/15/2024 12:52 PM CDT taken manually Pulse 75 08/15/2024 12:52 PM CDT Temperature 36.4 C (97.5 F) 08/15/2024 12:52 PM CDT Respiratory Rate 20 08/15/2024 12:5 2 PM CDT Oxygen Saturation 99% 12/17/2021 1:0 0 AM CDT Inhaled Oxygen Concentration - - Weight 92 kg (202 lb 13.2 oz) 2 3:38 PM CDT with shoes Height 154.9 cm (5' 1) 12/16/2021 7:08 PM CDT Body Mass Index 40.24 03/14/2019 9:07 AM TIN STACKER Plan of Treatment Upcoming Encounters Date Type Department Care Team (Late st Contact Info) Description 09/19/2024 2:00 PM CDT Office Visit Department of Community Internal Medicine in [place] [address] [facility], [place] [phone] Susi Lemus MPAS, P.A.-C. [address] [facility] [place] [phone] 11/01/2024 12:00 PM CDT Comprehensive Visit Department of Neurology in [place], [place] [address] [place] [phone] Lang Olguin M.D. [address] [place] [phone] Health Maintenance Due Date Last Done Comments CT Colonography 1950 Cologuard 1950 FIT 1950 Hepatitis C Screening 1950 Visit: Medicare Annual Wellness 1950 Colonoscopy 04/06/2011 04/06/2001 Colorectal Cancer Screening 04/06/2011 RSV vaccine - (32-36 weeks) or 60+ years (1 - Risk 60-74 years 1-dose series) 2012 Zoster Vaccines (3 of 3) 05/09/2019 03/14/2019, 12/08 COVID-19 Vaccine ( season) 2023 06/18/2021, 06/19/2020, 05/18/2020 Influenza Vaccine (#1) 2023 , 12/09/2016, 01/02/2015, Additional history exists Mammogram 05/05/2024 05/05/2023, 06/07, 06/19/2020, Additional history exists Visit: Annual, age 65+ (or Medicare and <65) 08/15/2025 08/15/2024 DTaP,Tdap,and Td Vaccines (3 - Td or Tdap) 01/01/2027 01/01/2017, 02/24/2006, 10/09/1993, Additional history exists Fasting Glucose for Diabetes Screening 08/16/2027 08/15/2024, 08/15/2024, 08/11/2023, Additional history exists Lipid (Cholesterol) Screening 08/15/2029 08/15/2024, 08/11/2023, 12/03/2022, Additional history exists IPV Vaccines Aged Out 03/09/1961 No longer eligi ble based on patient's age to complete this topic Hepatitis B Vaccines Completed 04/09/1992, 11/15/1991, 10/13/1991 Bone Density Scan (Osteoporosis Screen) Discontinued 03/17/2019 Pneumococcal vaccine (50+ years) Completed 06/18/2021, 10/11/2018, 07/05/1997 Depression Screening (Annual PHQ-2) Completed 08/15/2024, 08/15/2024 Fall Risk Screen (Annual) Completed 08/15/2024 Procedures Procedure Name Priority Date/Time Associated Diagnosis Comments CBC WITH DIFFERENTIAL, B Routine 08/15/2024 2:15 PM CDT Solitary Kidney Congenital BASIC METABOLIC PANEL, S/P Routine 08/15/2024 2:15 PM CDT Solitary Kidney Congenital HEMOGLOBIN A1C, B Routine 08/15/2024 2:1 5 PM CDT Screening Examination Diabetes Mellitus LIPID PANEL, S Routine 08/15/2024 2:15 PM CDT Hyperlipidemia ECG Routine 08/15/2024 1:56 PM CDT Atrial Fibrillation Unspecified (HCC) BI BREAST SCREENING BILATERAL WITH TOMOSYNTHESIS RAD - Routine (most inpatients and all outpatients) 05/05/2023 2:06 PM TIN STACKER Screening Mammogram Breast Cancer from Last 3 Months or Most Recently Relevant to Health Maintenance Results * Lipid Panel (08/15/2024 2:15 PM CDT) [...] GUZMAN, P.A.-C. LAB BLOOD ADD-ON Final Result [facility] [address] [place] [address], [facility] in [place] [address] [place] [address] * (ABNORMAL) CBC with Differential, Blood (08/15/2024 [...] GUZMAN, P.A.-C. LAB BLOOD ADD-ON Final Result [facility] [address] [place] [address], [facility] in [place] [address] [place] [address] * Hemoglobin A1c (08/15/2024 2:15 PM CDT) Hemoglobin A1c, B 5.6 4.2 - 5.6 % 08/15/2024 6:14 PM CDT OWAT Blood (Blood, Venous) 08/15/2024 2:15 PM CDT 08/15/2024 5:44 PM CDT Susi GUZMAN, P.A.-C. LAB BLOOD ADD-ON Final Result [facility] [address] [place] [address], [place] [facility] in [place] [address] [place] [facility] [place] [address] * (ABNORMAL) Basic Metabolic Panel (08/15/2024 2:15 [...] CDT 08/15/2024 5:44 PM CDT us Susi Lemus MPAS, P.A.-C. LAB BLOOD ADD-ON Final Result [facility] [address] [place] [address], [place] [facility] in [place] [address] [place] [address] * ECG 12 Lead (08/15/2024 1:56 PM CDT) Ventricular Rate ECG/Min 76 BPM MUSE AZ Interval 150 ms MUSE QRSD Interval 78 ms MUSE QT Interval 388 ms MUSE QTC Interval 436 ms MUSE R Rice -27 degrees MUSE T Wave Rice 25 degrees MUSE 08/15/2024 1:5 6 PM CDT 08/15/2024 2:32 PM CDT Impressions [...] in Anterior leads Reviewed by MAYLIN Byrne Susi GUZMAN, P.A.-C. ECG ORDERABLES E dited Result - Final MUSE NA * BI Breast Screening Bilateral with Tomosynthesis (05/05/2023 2:06 PM TIN STACKER) Anatomical Region Laterality Modality Breast, Breast Imaging RST L OS, Breast Imaging ARZ LOS, Breast Imaging FLA LOS Bilateral Mammography Impressions 05/05/2023 4:20 PM TIN STACKER Negative. RECOMMENDATION: Annual Screening Mammogram ASSESSMENT: BI-RADS: 1: Negative. Narrative 05/05/2023 4:20 PM TIN STACKER EXAM: BI BREAST SCREENING BILATERAL WITH TOMOSYNTHESIS Current study was evaluated with a Computer Aided Detection (CAD) system. INDICATION: Screening mammogram. COMPARISON: Prior exam(s) were available and reviewed for comparison. DENSITY: b. There are scattered areas of fibroglandular density. FINDINGS: No mammographic findings of malignancy. No significant change since prior mammograms. Procedure Note Kassandra Bowser M.D. - 05/05/2023 EXAM: BI BREAST SCREENING BILATERAL WITH TOMOSYNTHESIS Current study was evaluated with a Computer Aided Detection (CAD) system. INDICATION: Screening mammogram. COMPARISON: Prior exam(s) were available and reviewed for comparison. DENSITY: b. There are scattered areas of fibroglandular density. FINDINGS: No mammographic findings of malignancy. No significant changesince prior mammograms. IMPRESSION: Negative. RECOMMENDATION: Annual Screening Mammogram ASSESSMENT: BI-RADS: 1: Negative. Manish Zhu M.D. IMG BI PROCEDURES Final Result from Last 3 Months or Most Recently Relevant to Health Maintenance Insurance MEDICARE [employer] [facility] EMPLOYEE Advance Directives For more information, please contact: [phone] Documents on File Type Date Recorded Patient Broker Associate Expl anation Advance Directives 04/02/2023 8:51 AM POLS T/MOLST Care Teams Adult Crossing Guard Relationship Specialty Start Date End Date Susi Lemus MPAS, P.A.-C. [address] [place] [address] [place] [phone] PCP - General Internal Medicine 08/02/24
--- OUTSIDE RECORDS SUMMARY | 2024-08-30 00:31 | XMS_ITS | Encounter Summary ---
Author Organization [facility] Address [address] [place] [address] Care Team Providers Care Stone Product Fabricator Name Role Phone Susi Lemus P.A.-Bashir Primary Care Pro vider Reason for Referral * Outpatient (Routine) - Authorized Specialty Diagnoses / Procedures Referred By Contnedra t Referred To Contact Community [facility] Medicine Susi Lemus MPAS, P.AChetna-CChetna [address] [place] [address] Phone: tel: fax: [facility] Region Referral ID Status Reason Start Date Expiration Date V isits Requested Visits Authorized [id number] Authorized 08/17/2024 02/16/2026 1 1 Encounter Details Date Type Department Care Team (Late st Contact Info) Description 08/17/2024 Results Follow-Up Department of Community Internal Medicine in [place], [place] [address] [place] [address] Susi Lemus MPAS, P.A.-C. [address] [place] [phone] ECG 12 Lead, Lipid Panel, Hemoglobin A1c, Additional followed-up results: 2 Social History Tobacco Use Types Packs/Day Years Used Date Smoking Tobacco: Never Passive Smoke Exposure: Past Smokeless Tobacco: Never Alcohol Use Standard Drinks/Week Comments Not Currently 0 (1 standard drink = 0.6 oz pur e alcohol) basicly nil [facility] Utilities Answer Date Recorded In the past [...] your living situation today? I have a [facility] place to live 08/15/2024 Education Answer Date Recorded What is the highest level of school you have completed or the highest degree you have received? Associate degree: occupational, technical, or vocational program 12/09/2021 Comments No Sex and Gender Information Value Date Recorded Sex Assigned at Female 03/22/2023 10:14 PM POLICE CLERK Legal Sex Female 5:31 AM POLICE CLERK Gender Identity Female 02/02/2018 11:17 AM POLICE CLERK Sexual Orientation Straight 02/02/2018 11 :17 AM POLICE CLERK documented as of this encounter Plan of Treatment Upcoming Encounters Date Type Department Care Team (Late st Contact Info) Description 09/19/2024 2:00 PM CDT Office Visit Department of Community Internal Medicine in [place], [place] [address] [facility] [place] [address] Susi Lemus MPAS, P.A.-C. [address] [place] [address] 11/01/2024 12:00 PM CDT Comprehensive Visit Department of Neurology in [place], [place] [address] [place] [address] Lang Olguin M.D. [address] [place] [address] Scheduled Orders Name Type Priority Associated Diagnoses Orde r Schedule Basic Metabolic Panel Lab Routine Chronic Kidney Disease (CKD), Stage 3b Glomerular Filtration Rate (GFR) 30 To 44 (HCC) Expected: 02/16/2025, Expires: 11/17/2025 CBC with Differential, Blood Lab Routine Leukocytosis Expected: 02/16/2025, Expires: 11/17/2025 Scheduled Referrals Name Type Priority Associated Diagnoses Orde r Schedule Community Internal Medicine office visit (clinic) Outpatient Referral Routine Expected: 02/16/2025 (Approximate), Expires: 11/17/2025 documented as of this encounter Visit Diagnoses Diagnosis Chronic Kidney Disease (CKD), Stage 3b Glomerular Filtration Rate (GFR) 30 To 44 (HCC)- Primary Leukocytosis documented in this encounter Additional Health Concerns Assessment Noted Time PHQ-9 Depression Total Score: 7 08/16/19 25 12:54 PM CDT documented as of this encounter Care Teams Stone Product Fabricator Relationship Specialty Start Date End Date Susi Lemus MPAS, P.A.-C. [address] [place] [place] [phone] PCP - General Internal Medicine 08/02/24 documented as of this encounter
== END 2024-08-26 15:55 | disposition home or self-care (01) ==
LOC: AMB 08-29 09:48
PROVIDERS: Visit Provider Internal Medicine
DX: R53.1 Weakness (principal)
CPT/HCPCS: A0998

== ENCOUNTER 2024-09-27 13:05 | Outpatient (CLI) | payer MEDICARE, SELFPAY | END 2024-09-27 13:06 | disposition home or self-care (01) | PROVIDERS: Visit Provider Family Medicine | DX: R53.1 Weakness (principal) | CPT/HCPCS: A0998 ==

== ENCOUNTER 2024-11-13 15:22 | Outpatient (CLI) | payer MEDICARE, SELFPAY | END 2024-11-13 15:23 | disposition home or self-care (01) | LOC: AMB 11-22 13:04 | PROVIDERS: Visit Provider Family Medicine | DX: R53.1 Weakness (principal) | CPT/HCPCS: A0998 ==

== ENCOUNTER 2024-11-13 23:13 | Outpatient (CLI) | payer MEDICARE, SELFPAY | END 2024-11-13 23:14 | disposition home or self-care (01) | LOC: AMB 11-17 11:34 | PROVIDERS: Visit Provider Emergency Medicine | DX: R53.1 Weakness (principal) | CPT/HCPCS: A0998 ==

== ENCOUNTER 2024-11-14 11:15 | Outpatient (CLI) | payer MEDICARE, SELFPAY | END 2024-11-14 11:16 | disposition home or self-care (01) | LOC: AMB 11-17 13:14 | PROVIDERS: Visit Provider Family Medicine | DX: R53.1 Weakness (principal) | CPT/HCPCS: A0425; A0429 ==

== ENCOUNTER 2024-11-14 11:34 | Emergency (ER) | payer MEDICARE, OTHER, SELFPAY ==
--- OUTSIDE RECORDS SUMMARY | 2024-10-07 15:30 | XMS_ITS | Encounter Summary ---
Author Organization [facility] Address [address] [place] [address] Care Team Providers Care Implementation Project Manager Name Role Phone Susi Lemus P.A.-C. Primary Care Pro vider Reason for Referral * Outpatient (Routine) - Closed Specialty Diagnoses / Procedures Referred By Quinton johnson Referred To Contact Diagnoses Pain Shoulder Left Pain Shoulder Right Procedures DX Shoulder Bilateral 2+ Views Susi Lemus MPAS, P.A.-C. [address] [place] [address] Phone: tel: fax: [facility] Referral ID Status Reason Start Date Expiration Date Visits Re quested Visits Authorized [id number] Closed 10/07/2024 01/07/2026 1 1 Reason for Visit * Reason Comments Follow-up Follow up-Labs and A rm Pain * Appointment Request (Routine) - Closed Specialty Diagnoses / Procedures Referred By Quinton t Referred To Contact Community [facility] Medicine Referral ID Status Reason Start Date Expiration Date Visits Re quested Visits Authorized [id number] Closed 10/07/2024 01/07/2026 1 1 Encounter Details Date Type Department Care Team (Late st Contact Info) Description 10/07/2024 3:30 PM CDT Office Visit Department of Community Internal Medicine in [place], [place] [address] [place] [address] Susi Lemus MPAS, P.A.-C. [address] [facility] [place] [phone] Pain Shoulder Left (Primary Dx); Pain Shoulder Right; Hyperlipidemia; Chronic Kidney Disease (CKD), Stage 3b Glomerular Filtration Rate (GFR) 30 To 44 (HCC); Incontinence Urinary; Leukocytosis Social History Tobacco Use Types Packs/Day Years Used Date Smoking Tobacco: Never Passive Smoke Exposure: Past Smokeless Tobacco: Never Tobacco Cessation:Counseling Given: Not Answered Alcohol Use Standard Drinks/Week Comments Not Currently 0 (1 standard drink = 0.6 oz pur e alcohol) basicly nil [facility] Utilities Answer Date Recorded In the past 12 months has e [employer], gas, oil, or water [employer] threatened to shut off services in your [...] your living situation today? I have a [facility] place to live 08/15/2024 Education Answer Date Recorded What is the highest level of school you have completed or the highest degree you have received? Associate degree: occupational, technical, or vocational program 12/09/2021 Comments No Sex and Gender Information Value Date Recorded Sex Assigned at Female 03/22/2023 10:14 PM INTERNAL WHOLESALER Legal Sex Female 5:31 AM INTERNAL WHOLESALER Gender Identity Female 02/02/2018 11:17 AM INTERNAL WHOLESALER Sexual Orientation Straight 02/02/2018 11 :17 AM INTERNAL WHOLESALER documented as of this encounter Last Filed Vital Signs Vital Sign Reading Time Taken Comments Blood Pressure 111/79 10/07/2024 3:27 PM CDT Pulse 72 10/07/2024 3:27 PM CDT Temperature 36.4 C (97.5 F) 10/07/2024 3:21 PM CDT Respiratory Rate - - Oxygen Saturation - - Inhaled Oxygen Concentration - - Weight - - Height - - Body Mass Index - - documented in this encounter Patient Instructions * Patient Instructions* Susi Lemus MPAS, P.A.-C. - 10/07/2024 3:30 PM CDT Tylenol 1000 mg TID. documented in this encounter Progress Notes * Susi Lemus MPAS, P.A.-C. 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 female who presents to the clinic today for follow up. She did not see my comments over the portal regarding labs completed at previous clinic visit as she has had a difficult time logging into her portal. We will plan to review these recommendations today. Since our last visit, she has been receiving home health physical therapy specifically to help with right leg weakness in the setting of personal history of ischemic stroke in fall 2022. She would like to specifically discuss a stiffness and aching sensation in shoulders bilaterally ongoing intermittently for the past 3-4 months but worse in the past 3 days. Stiffness is not particularly worse in the morning. She has occasionally taken Tylenol which can be helpful. She does not have known history of arthritis in her shoulder. She believes left shoulder is more symptomatic than right shoulder. She locates shoulder pain over anterior/lateral shoulder. She has not had any recent injuries to shoulder. She describes having difficulty with overhead activities since stroke. She denies radiating arm pain, arm numbness, fatigue, fevers, night sweats, weight loss, hip girdle stiffness. She would like to avoid surgical intervention for shoulder pain if possible. She also mentions concerns ofurinary incontinence and says she had a consult placed for this previously but did not attend. 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) Leukocytosis ALLERGIES/CONTRAINDICATIONS Allergen Reactions Nsaids (Non-Steroidal Anti-Inflammatory Drug) Renal Failure Elevated creatinine due to only having one kidney CURRENT MEDICATIONS Current Outpatient Medications: acetaminophen (TYLENOL) 500 mg tablet, Take 1,000 mg by mouth every 6 (six) hours as needed., Disp:, Rfl: atorvastatin (Lipitor) 80 mg tablet, TAKE 1 TABLET (80 MG TOTAL) BY MOUTH AT BEDTIME., Disp: 90 tablet, Rfl: 3 baclofen (LioresaL) 10 mg tablet, TAKE 1 TABLET (10 MG TOTAL) BY MOUTH 2 (TWO) TIMES A DAY., Disp: 180 tablet, Rfl: 3 busPIRone (BuSpar) 5 mg tablet, Take 1 tablet (5 mg total) by mouth 2 (two) times a day., Disp: 180tablet, Rfl: 0 DME Oxygen, Oxygen for home use. Liters per minute: 2 per nasal cannula. Frequency of use: Nocturnal;. Length of need: 99 Months., Disp: , Rfl: DULoxetine (Cymbalta) [address] capsule, TAKE 2 CAPSULES (120 MG TOTAL) BY MOUTH DAILY., Disp: 180 capsule, Rfl: 3 Eliquis 5 mg tablet, TAKE 1 TABLET (5 MG TOTAL) BY MOUTH 2 (TWO) TIMES A DAY., Disp: 180 tablet, Rfl: 3 gabapentin (Neurontin) 100 mg capsule, TAKE 1 CAPSULE (100 MG TOTAL) BY MOUTH AT BEDTIME., Disp: 90capsule, Rfl: 3 ketoconazole (NIZORAL) 2 % shampoo, Shampoo twice weekly , leave on for 5-10 minutes, then rinse., Disp: 120 mL, Rfl: 11 lidocaine (LMX) 4 % cream, APPLY TOPICALLY TO INTACT SKIN 4 TIMES DAILY FOR NEUROPATHIC OR MUSCULOSKELETAL PAIN. DO NOT PLACE OVER INCISION, WOUND, OR RASH AREA., Disp: , Rfl: lidocaine HCL (ASPERCREME) 4 % cream cream, Apply topically to intact skin 4 times daily for neuropathic or musculoskeletal pain. Do not place over incision, wound, or rash area., Disp: , Rfl: miconazole (MICATIN) 2 % cream, APPLY TOPICALLY TO AFFECTED SKIN UNDER BILATERAL BREASTS (ESPECIALLY RIGHT BREAST) TWICE DAILY UNTIL RESOLVED. miconazole 2 % powder, Apply topically daily. Apply to under breast after shower ., Disp: 43 g, Rfl: 0 senna 8.6 mg tablet, TAKE 2 TABLETS (17.2 MG) BY MOUTH ONCE DAILY., Disp: 180 tablet, Rfl: 3 UNABLE TO FIND, Take by mouth daily. Med Name: Instaflex, Disp: , Rfl: WHEELCHAIR MISC, Wheelchair: Standard with leg rests: (Swing away Length of need: 99 months, Disp: , Rfl: OBJECTIVE VITAL SIGNS Vitals: 10/07/24 1527 BP: 111/79 Pulse: 72 Temp: PHYSICAL EXAMINATION General: Well-nourished, well-developed 74 y.o. in no apparent distress. Awake, alert, age appropriate. Sitting in wheelchair. Musculoskeletal: Shoulders bilaterally are symmetric in appearance. Moderate tenderness to palpation left and right acromioclavicular joint bilaterally as well as lateral shoulders. Active shoulder flexion is limited B/L, can move patient to near full range of motion with passive movement. She is extremely limited left shoulder abduction, right side is better. Mild reduction in range of motion with internal rotation of left shoulder as compared to right. External rotation is preserved. PositiveEmpty can test left. Positive Mcclellan Left. Strength 3/5 with abduction left side, 4/5 right side. 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 Shoulder x-ray completed in clinic today shows advanced arthritis of the glenohumeral joint in the right shoulder and moderate arthritis of the glenohumeral joint and left shoulder and mild arthritis of acromioclavicular joints bilaterally. We will plan to offer the patient pain management with Tylenol, corticosteroid injection, or referral to physical therapy. #3 Hyperlipidemia Lipid panel recently completed. Continue atorvastatin 80 mg daily. #4 Chronic Kidney Disease (CKD), Stage 3b Glomerular Filtration Rate (GFR) 30 To 44 (HCC) Kidney function has been stable dating back to 2017. Continue to monitor kidney function with repeat basic metabolic panel in 6 months #5 Leukocytosis Leukocytosis with elevation in neutrophil and monocyte count appears to be stable since 2017. Repeat lab in 6 months. #6 Urinary Incontinence She has a Urology consult ordered by previous PCP that she will plan to schedule today Other orders - DX Shoulder Bilateral 2+ Views; Future; Expected date: 10/07/2024 If symptoms worsen or do not improve, patient is instructed to seek further medical attention. All questions have been answered. Patient demonstrated understanding and verbalized agreement with the plan. Total time spent: 30 minutes MEGAN Goldstein, P.A.-C. documented in this encounter Plan of Treatment Upcoming Encounters Date Type Department Care Team (Late st Contact Info) Description 02/20/2025 12:30 PM INTERNAL WHOLESALER Appointment Department of Laboratory Medicine in [address] [phone] Susi Lemus MPAS, P.A.-CChetna [address] [place] [phone] 02/20/2025 1:30 PM INTERNAL WHOLESALER Office Visit Department of Community Internal Medicine in [place], [place] [address] [phone] Susi Lemus MPAS, P.A.-Bashir [address] [place] [address] [phone] documented as of this encounter Results * DX Shoulder Bilateral 2+ Views (10/07/2024 4:58 PM CDT) Anatomical Region Laterality Modality Upper Extremity, Shoulder, M usculoskeletal RST LOS, Musculoskeletal ARZ LOS, Muskuloskeletal FLA LOS Bilateral Digit al Radiography Impressions 10/07/2024 5:08 PM CDT RIGHT: Advanced degenerative changes at the glenohumeral articulation with a prominent marginal osteophyte along the inferomedial humeral head. Mild degenerative changes of the acromioclavicular articulation. No fracture or dislocation. LEFT: Moderate degenerative changes of the glenohumeral articulation and mild degenerative changes of the acromioclavicular articulation. Small enthesophyte about the greater tuberosity. No fracture or dislocation. Narrative 10/07/2024 5:08 PM CDT EXAM: DX SHOULDER BILATERAL 2+ VIEWS Procedure Note Ernst Silverman M.D. - 10/07/2024 EXAM: DX SHOULDER BILATERAL 2+ VIEWS IMPRESSION: RIGHT: Advanced degenerative changes at the glenohumeral articulation witha prominent marginal osteophyte along the inferomedial humeral head. Milddegenerative changes of the acromioclavicular articulation. No fracture ordislocation. LEFT: Moderate degenerative changes of the glenohumeral articulation andmild degenerative changes of the acromioclavicular articulation. Smallenthesophyte about the greater tuberosity. No fracture or dislocation. us Susi GUZMAN P.A.-C. IMG DIAGNOSTIC IM AGING PROCEDURES Final Result documented in this encounter Visit Diagnoses Diagnosis Pain Shoulder Left- Primary Pain Shoulder Right Hyperlipidemia Chronic Kidney Disease (CKD), Stage 3b Glomerular Filtration Rate (GFR) 30 To 44 (HCC) Incontinence Urinary Leukocytosis Pain Shoulder Left Pain Shoulder Right documented in this encounter Additional Health Concerns Assessment Noted Time PHQ-9 Depression Total Score: 7 08/16/19 25 12:54 PM CDT documented as of this encounter Care Teams Implementation Project Manager Relationship Specialty Start Date End Date Susi Lemus MPAS, P.A.-C. [address] [place] [phone] PCP - General Internal Medicine 08/02/24 documented as of this encounter
--- OUTSIDE RECORDS SUMMARY | 2024-10-07 16:13 | XMS_ITS | Encounter Summary ---
Author Organization [facility] Address [address] [place] [address] Care Team Providers Care Money Counter Name Role Phone Susi Lemus P.A.-CChetna Primary Care Pro vider Reason for Referral * Outpatient (Routine) - Closed Specialty Diagnoses / Procedures Referred By Contac t Referred To Contact Diagnoses Pain Shoulder Left Pain Shoulder Right Procedures DX Shoulder Bilateral 2+ Views Susi Lemus MPAS, P.A.-C. [address] [place] [address] Phone: tel: fax: [facility] Referral ID Status Reason Start Date Expiration Date Visits Re quested Visits Authorized [id number] Closed 10/07/2024 01/07/2026 1 1 Reason for Visit * Outpatient (Routine) - Closed Specialty Diagnoses / Procedures Referred By Contac t Referred To Contact Diagnoses Pain Shoulder Left Pain Shoulder Right Procedures DX Shoulder Bilateral 2+ Views Susi Lemus MPAS PChetnaA.-C. [address] [place] [address] Phone: tel: fax: [facility] Region Referral ID Status Reason Start Date Expiration Date Visits Re quested Visits Authorized [id number] Closed 10/07/2024 01/07/2026 1 1 Encounter Details Date Type Department Care Team (Latest Contact Info) Description 10/07/2024 4:13 PM CDT - 10/07/2024 11:59 PM CDT Hospital Encounter Department of Radiology in [place], [place] [address] [facility] [place] [address] Susi Lemus MPAS, P.A.-C. 300 [facility] [place] [phone] Pain Shoulder Left; Pain Shoulder Right Discharge Disposition: Home or Self Care Social History Tobacco Use Types Packs/Day Years Used Date Smoking Tobacco: Never Passive Smoke Exposure: Past Smokeless Tobacco: Never Alcohol Use Standard Drinks/Week Comments Not Currently 0 (1 standard drink = 0.6 oz pur e alcohol) basicly nil [facility] Utilities Answer Date Recorded In the past 12 months has e [employer], gas, oil, or water [employer] threatened to shut off services in your [...] your living situation today? I have a [facility] place to live 08/15/2024 Education Answer Date Recorded What is the highest level of school you have completed or the highest degree you have received? Associate degree: occupational, technical, or vocational program 12/09/2021 Comments No Sex and Gender Information Value Date Recorded Sex Assigned at Female 03/22/2023 10:14 PM LINUX SYSTEMS ADMINISTRATOR Legal Sex Female 5:31 AM LINUX SYSTEMS ADMINISTRATOR Gender Identity Female 02/02/2018 11:17 AM LINUX SYSTEMS ADMINISTRATOR Sexual Orientation Straight 02/02/2018 11 :17 AM LINUX SYSTEMS ADMINISTRATOR documented as of this encounter Medications at [...] away Length of need: 99 months 03/05/2023 documented as of this encounter Plan of Treatment Upcoming Encounters Date Type Department Care Team (Late st Contact Info) Description 02/20/2025 12:30 PM LINUX SYSTEMS ADMINISTRATOR Appointment Department of Laboratory Medicine in [place], [place] [address] [facility] [place] [phone] Susi Lemus MPAS, P.A.-C. 300 [facility] [place] [phone] 02/20/2025 1:30 PM LINUX SYSTEMS ADMINISTRATOR Office Visit Department of Community Internal Medicine in [place], [place] [address] [facility] [place] [phone] Susi Lemus MPAS, P.A.-C. [address] [place] [address] [place] [phone] documented as of this encounter Procedures Procedure Name Priority Date/Time Associated Diagnosis Comments DX SHOULDER BILATERAL 2+ VIEWS RAD - Routine (most inpatients and all outpatients) 10/07/2024 4:58 PM CDT Pain Shoulder Left Pain Shoulder Right documented in this encounter Results * DX Shoulder Bilateral [...] the greater tuberosity. No fracture or dislocation. Susi GUZMAN, P.A.-C. IMG DIAGNOSTIC IM AGING PROCEDURES Final Result documented in this encounter Visit Diagnoses Diagnosis Pain Shoulder Left Pain Shoulder Right documented in this encounter Additional Health Concerns Assessment Noted Time PHQ-9 Depression Total Score: 7 08/16/19 25 12:54 PM CDT documented as of this encounter Care Teams Money Counter Relationship Specialty Start Date End Date Susi Lemus MPAS, P.A.-C. [address] [place] [phone] PCP - General Internal Medicine 08/02/24 documented as of this encounter
[2024-11-14 11:46] VITALS: BP 112/60; PULSE 77; RESP 18; TEMP 36.6; O2SAT 88; BMI 37.8
[2024-11-14 12:03] VITALS: O2SAT 86
--- NOTE | 2024-11-14 12:32 | ED.GENADULT ---
HPI - General Adult General Chief complaint: Fall/Minor Trauma Stated complaint: Falls Time Seen by Provider: 11/14/24 12:14 History of Present Illness HPI narrative: This 74-year-old female comes in by ambulance for evaluation after a very gentle fall that occurred prior to arrival. She lives alone in a apartment and uses a wheelchair and a scooter for getting around. She has been doing well under these circumstances but today accidentally slid out of her chair and was unable to get up. She does not report any injury. She does not have any pain. She states that she landed on her bottom and did not hit her head or have loss of consciousness. She did have a stroke and has some right-sided weakness but this is not new. She had oximetry checked on arrival by ambulance at home which registered at 93% on room air. She states that she has some assistive devices for hypoxia but has not needed to use this. On arrival here her oximetry is at 88% on room air. She does not report any shortness of breath. Related Data Home Medications ?Medication ?Instructions ?Recorded ?Confirmed duloxetine 60 mg capsule,delayed 120 mg PO DAILY 12/02/22 11/14/24 release apixaban 5 mg tablet (Eliquis) 5 mg PO BID 11/14/24 11/14/24 atorvastatin 80 mg tablet 80 mg PO QPM 11/14/24 11/14/24 baclofen 10 mg tablet 10 mg PO BID 11/14/24 11/14/24 gabapentin 100 mg capsule 100 mg PO QPM 11/14/24 11/14/24 Allergies Allergy/AdvReac Type Severity Reaction Status Date / Time No Known Drug Allergies Allergy Verified 11/14/24 11:51 Review of Systems Status of ROS: Reports: 10 or more systems reviewed and unremarkable except as noted in History and below Narrative: Constitutional: No fevers, no weight gain or loss. Eyes: No discharge. No vision changes. HENT: No congestion, no sore throat, no ear pain. Cardiovascular: No chest pain, no palpitations. Respiratory: No shortness of breath, no wheezes, no cough. Gastrointestinal: No abdominal pain, no vomiting, no diarrhea. Genitourinary: No dysuria, no hematuria. Musculoskeletal: Decreased strength for ambulating complicated by a stroke. Skin: No rashes, no pruritis. Neurological: No dizziness, weakness, sensory change, speech change. Endo/Heme/Allergies: No bruising or bleeding. No polydipsia. Pysch: no suicidality, no anxiety, no insomnia. All other systems reviewed and are negative. [facility] Social History Smoking Status: Never smoker How often do you have a drink containing alcohol: never AUDIT-C Alcohol total score: 0 Non-prescribed substance use: denies use Exam Narrative: Exam Narrative: Constitutional: Well-developed, well-nourished, no acute distress. HEENT: Normocephalic, atraumatic. Neck: Normal range of motion. Nontender. Supple. Heart: Regular. No murmurs. Normal rate. Intact distal pulses. Lungs: Clear to auscultation. No chest discomfort. No wheezes, rhonchi, or rales. Abdomen: Normal bowel sounds. Nontender. No rebound tenderness. Genitalia: Deferred. Back: No midline tenderness. Normal range of motion. Extremities: Normal range of motion. No injury. No pain when log-rolling either leg. No pain when stressing her pelvis. Skin: Intact. No rash. Warm. No erythema or pallor. Neurologic: No altered sensation.. Alert and oriented. Generalized weakness. She is able to raise each leg a bit off of the bed but is more difficult with her right leg due to the stroke. Psychiatric: No suicidality. No anxiety or depression. No insomnia. Nursing notes and vitals signs are reviewed. Const: Vital Signs, click to edit/add: Vital Signs - 24 hr 11/14/24 11:46 11/14/24 12:03 11/14/24 12:03 Temperature 97.8 F Pulse Rate [Left P ulse Oximeter] 77 Respiratory Rate 18 Blood Pressure [Le ft Forearm] 112/60 Pulse Oximetry 88 86 L 86 L Oxygen Delivery Me thod Room Air Nasal Cannula Oxygen Flow Rate 2 Course Vital Signs Vital signs: Initial Vital Signs Temperature 97.8 F 11/14/24 11:46 Temperature Source Temporal Artery Scan 11/14/24 11:46 Pulse Rate 77 11/14/24 11:46 Respiratory Rate 18 11/14/24 11:46 Blood Pressure 112/60 11/14/24 11:46 Blood Pressure Mean 77 11/14/24 11:46 Blood Pressure Position Supine 11/14/24 11:46 Pulse Oximetry 88 11/14/24 11:46 Oxygen Delivery Method Room Air 11/14/24 11:46 Vital Signs Temperature 97.8 F 11/14/24 11:46 Pulse Rate 77 11/14/24 11:46 Respiratory Rate 18 11/14/24 11:46 Blood Pressure 112/60 11/14/24 11:46 Pulse Oximetry 88 11/14/24 11:46 Oxygen Delivery Method Room Air 11/14/24 11:46 Temperature 97.8 F 11/14/24 11:46 Pulse Rate 77 11/14/24 11:46 Respiratory Rate 18 11/14/24 11:46 Blood Pressure 112/60 11/14/24 11:46 Pulse Oximetry 86 L 11/14/24 12:03 Oxygen Delivery Method Nasal Cannula 11/14/24 12:03 Oxygen Flow Rate 2 11/14/24 12:03 Medical Decision Making MDM Narrative Medical decision making narrative: This patient slid out of her chair at home and was unable to get up. She does not report any injury. She did not think that she needed to come in for evaluation but upon recommendation of EMS she did come in. She is not showing any sign of injury or complaints that need imaging at this time. Her vital signs are reassuring. She did have some mild hypoxia on the oximeter but does not report any shortness of breath. She states that her oximetry at home is been good. She is okay to be discharged back home to resume current plans. Discharge Plan Discharge Clinical Impression: Fall, Hemiparesis affecting right side as late effect of stroke Patient Disposition: Home, Self-Care Condition: Stable Additional Instructions: Continue current plans. Follow up with MD return if worsening symptoms occur. Prescriptions: No Action duloxetine 60 mg capsule,delayed release(DR/EC) 120 mg PO DAILY atorvastatin 80 mg tablet 80 mg PO QPM baclofen 10 mg tablet 10 mg PO BID gabapentin 100 mg capsule 100 mg PO QPM Eliquis 5 mg tablet 5 mg PO BID Follow Up/Referrals: Provider,Not a Local [Primary Care Provider, Family Practice] Stand Alone Forms: [employer] Info Instructions
--- OUTSIDE RECORDS SUMMARY | 2024-11-14 12:58 | XMS_ITS | Encounter Summary ---
Author Organization [facility] Address [address] [place] [address] Care Team Providers Care Printing Screen Assembler Name Role Phone Susi Lemus, P.A.-C. Primary Care Pro vider Reason for Visit * Reason Onset Date Comments Results 10/10/2024 10/11/24 patient w ill call us back with the response Encounter Details Date Type Department Care Team (Late st Contact Info) Description 10/10/2024 Results Follow-Up Department of Community Internal Medicine in [place], [place] [address] [place] [phone] Susi Lemus MPAS, P.A.-C. [address] [place] [address] DX Shoulder Bilateral 2+ Views Social History Tobacco Use Types Packs/Day Years Used Date Smoking Tobacco: Never Passive Smoke Exposure: Past Smokeless Tobacco: Never Alcohol Use Standard Drinks/Week Comments Not Currently 0 (1 standard drink = 0.6 oz pur e alcohol) basicly nil [facility] Utilities Answer Date Recorded In the past 12 months has e electric, gas, oil, or water [employer] threatened to shut off services in your [...] your living situation today? I have a [facility] place to live 08/15/2024 Education Answer Date Recorded What is the highest level of school you have completed or the highest degree you have received? Associate degree: occupational, technical, or vocational program 12/09/2021 Comments No Sex and Gender Information Value Date Recorded Sex Assigned at Female 03/22/2023 10:14 PM SILVERWARE CLEANER Legal Sex Female 5:31 AM SILVERWARE CLEANER Gender Identity Female 02/02/2018 11:17 AM SILVERWARE CLEANER Sexual Orientation Straight 02/02/2018 11 :17 AM SILVERWARE CLEANER documented as of this encounter Miscellaneous Notes * Telephone Encounter - Kassandra Garcia L.P.NChetna - 10/11/2024 10:26 AM CDT Called and spoke to patient and she will call us back when she determines what exactly she would like to do: Please call the patient. 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 At our clinic visit last week, we discussed that she can take Tylenol 1000 mg TIDfor pain management. She would also be a candidate for physical therapy and/or corticosteroid injection. She could return to clinic as first available if she would like to pursue injection therapy. Otherwise, she can 1st try dose increase in Tylenol. Let me know how she would like to proceed documented in this encounter Plan of Treatment Upcoming Encounters Date Type Department Care Team (Late st Contact Info) Description 02/20/2025 12:30 PM SILVERWARE CLEANER Appointment Department of Laboratory Medicine in [place], [place] [address] [place] [address] Susi Lemus MPAS, P.A.-C. [address] [place] [address] 02/20/2025 1:30 PM SILVERWARE CLEANER Office Visit Department of Community Internal Medicine in [place], [place] [address] [place] [address] Susi Lemus MPAS, P.A.-C. [address] [place] [address] documented as of this encounter Visit Diagnoses Not on filedocumented in this encounter Additional Health Concerns Assessment Noted Time PHQ-9 Depression Total Score: 7 08/16/19 12:54 PM CDT documented as of this encounter Care Teams Printing Screen Assembler Relationship Specialty Start Date End Date Susi Lemus MPAS, P.A.-C. [address] [place] [address] PCP - General Internal Medicine 08/02/24 documented as of this encounter
--- OUTSIDE RECORDS SUMMARY | 2024-11-14 12:59 | XMS_ITS | Encounter Summary ---
Author Organization [facility] Address [address] [place] [address] Care Team Providers Care Adobe Block Maker Name Role Phone Susi Lemus P.A.-C. Primary Care Pro vider Encounter Details Date Type Department Care Team (Late st Contact Info) Description 11/08/2010 Historical Ophthalmology RST OPH Denver Murphy M.D. [address] [place] [address] Social History Tobacco Use Types Packs/Day Years Used Date Smoking Tobacco: Never Assessed Comments Unknown Sex and Gender Information Value Date Recorded Sex Assigned at Female 03/22/2023 10:14 PM HANDLE BENDER Legal Sex Female 5:31 AM HANDLE BENDER Gender Identity Female 02/02/2018 11:17 AM HANDLE BENDER Sexual Orientation Straight 02/02/2018 11 :17 AM HANDLE BENDER documented as of this encounter Progress Notes * Denver Murphy M.D. - 11/08/2010 11:33 AM CDT Eye Postoperative MULTI-VISIT DOCUMENT This document contains multiple patient visits and is available for review in Document Viewer. CDM Reports - EYEPO Id: [id number] Status: Fnl documented in this encounter Plan of Treatment Upcoming Encounters Date Type Department Care Team (Late st Contact Info) Description 02/20/2025 12:30 PM HANDLE BENDER Appointment Department of Laboratory Medicine in [place], [place] [address] [place] [id number] Susi Lemus MPAS, P.A.-C. [address] [place] [id number] 02/20/2025 1:30 PM HANDLE BENDER Office Visit Department of Community Internal Medicine in [place], [place] [address] [place] [phone] Susi Lemus MPAS, P.A.-C. [address] [place] [id number] documented as of this encounter Visit Diagnoses Not on filedocumented in this encounter Additional Health Concerns Infection Onset Date Last Indicated Resolved Time COVID19 Pending 09/30/2019 09/30/2019 10/01/2019 6 :52 PM CDT Assessment Noted Time PHQ-9 Depression Total Score: 15 08/31/ 008 4:27 PM CDT documented as of this encounter Care Teams Adobe Block Maker Relationship Specialty Start Date End Date Susi Lemus MPAS, P.A.-C. [address] [place] [id number] PCP - General Internal Medicine 08/02/24 documented as of this encounter
--- OUTSIDE RECORDS SUMMARY | 2024-11-14 12:59 | XMS_ITS | Encounter Summary ---
Author Organization [facility] Address [address] [place] [address] Care Team Providers Care Cemetery Workers Supervisor Name Role Phone Susi Lemus, P.A.-C. Primary Care Pro vider Reason for Visit * Reason Onset Date Comments PandaDoc Form 10/19/2024 [facility] - SWO & LMN orthotics L1951, L3334 09/26 Encounter Details Date Type Department Care Team (Latest Contact Info) Description 10/19/2024 Clinical Communication Department of Community Internal Medicine in [place], [place] [address] [place] [phone] Susi Lemus MPAS, P.A.-C. [address] [place] [phone] PandaDoc Form ([facility] - SWO & LMN orthotics L1951, L3334 09/26 ) Social History Tobacco Use Types Packs/Day Years Used Date Smoking Tobacco: Never Passive Smoke Exposure: Past Smokeless Tobacco: Never Alcohol Use Standard Drinks/Week Comments Not Currently 0 (1 standard drink = 0.6 oz pur e alcohol) basicly nil [facility] Utilities Answer Date Recorded In the past 12 months has e electric, gas, oil, or water company [...] your living situation today? I have a [facility] place to live 08/15/2024 Education Answer Date Recorded What is the highest level of school you have completed or the highest degree you have received? Associate degree: occupational, technical, or vocational program 12/09/2021 Comments No Sex and Gender Information Value Date Recorded Sex Assigned at Female 03/22/2023 10:14 PM SUPERVISOR MIXING Legal Sex Female 5:31 AM SUPERVISOR MIXING Gender Identity Female 02/02/2018 11:17 AM SUPERVISOR MIXING Sexual Orientation Straight 02/02/2018 11 :17 AM SUPERVISOR MIXING documented as of this encounter Miscellaneous Notes * Telephone Encounter - Nunu Benoit C.M.A. - 11/10/2024 3:30 PM CDT SUBJECTIVE CHIEF COMPLAINT / REASON FOR CALL PandaDoc Form ([facility] - SWO & LMN orthotics L1951, L3334 09/26 ) Information Discussed Called [facility] and informed Candace of information provided by Susi Lemus P.A.-C. Candace will letthe patient know that she will need to be seen. PLAN Disposition/Recommendation: self-care . appropriate at this time, patient encouraged to call back with questions Information/Education: patient/caller able to teach back Caller agreeable to plan of care: yes The following references were used: provider Susi Lemus .P.A.-C. * Telephone Encounter - Kassandra Garcia L.P.N. - 11/10/2024 12:34 PM CDT I called [facility] and they are looking for the clinical office visit note to be addended to reflect the following: weakness and foot drop. Please addend and fax to: [phone] * Telephone Encounter - Ruth Payne - 11/02/2024 12:44 PM CDT Per message, edited to add: ORTHOSIS NEEDED FOR WEAKNESS AND FOOT DROP. * Telephone Encounter - Ruth Payne - 10/19/2024 4:02 PM CDT Received back completed form. Form faxed back to the listed facility. Scanned into [facility] * Telephone Encounter - Ruth Payne - 10/19/2024 10:40 AM CDT Form was routed to Venita Saldivar for electronic review/signature. WINDOWS ADMIN: [facility] PHONE NUMBER: [phone] INFO REQUESTED: SWO & LMN orthotics L1951, L3334 09/26 INSTRUCTIONS: Fax form to [phone] documented in this encounter Plan of Treatment Upcoming Encounters Date Type Department Care Team (Late st Contact Info) Description 02/20/2025 12:30 PM SUPERVISOR MIXING Appointment Department of Laboratory Medicine in [place], [place] [address] [place] [phone] Susi Lemus MPAS, P.A.-C. [address] [place] [phone] 02/20/2025 1:30 PM SUPERVISOR MIXING Office Visit Department of Community Internal Medicine in [place], [place] [address] [facility] [address] Susi Lemus MPAS, P.A.-C. [address] [place] [phone] documented as of this encounter Visit Diagnoses Not on filedocumented in this encounter Additional Health Concerns Assessment Noted Time PHQ-9 Depression Total Score: 7 08/16/19 12:54 PM CDT documented as of this encounter Care Teams Cemetery Workers Supervisor Relationship Specialty Start Date End Date Susi Lemus MPAS, P.A.-C. [address] [place] [phone] PCP - General Internal Medicine 08/02/24 documented as of this encounter
--- OUTSIDE RECORDS SUMMARY | 2024-11-14 12:59 | XMS_ITS | Encounter Summary ---
Author Organization [facility] Address [address] [place] [address] Care Team Providers Care Manager Support Services Name Role Phone Susi Lemus, P.A.-C. Primary Care Pro vider Reason for Visit * Reason Onset Date Comments PandaDoc Form 10/10/2024 [facility] - Initial Eval 09/22/24 Encounter Details Date Type Department Care Team (Latest Contact Info) Description 10/10/2024 Clinical Communication Department of Community Internal Medicine in [place], [place] [address] [place] [phone] Susi Lemus MPAS, P.A.-C. [address] [place] [address] PandaDoc Form ([facility] - Initial Eval 09/22/24) Social History Tobacco Use Types Packs/Day Years Used Date Smoking Tobacco: Never Passive Smoke Exposure: Past Smokeless Tobacco: Never Alcohol Use Standard Drinks/Week Comments Not Currently 0 (1 standard drink = 0.6 oz pur e alcohol) basicly nil [facility] Utilities Answer Date Recorded In the past 12 months has e electric, gas, oil, or water [employer] threatened to shut off services in your [...] your living situation today? I have a [facility] place to live 08/15/2024 Education Answer Date Recorded What is the highest level of school you have completed or the highest degree you have received? Associate degree: occupational, technical, or vocational program 12/09/2021 Comments No Sex and Gender Information Value Date Recorded Sex Assigned at Female 03/22/2023 10:14 PM SUPERVISOR CONDITIONING YARD Legal Sex Female 5:31 AM SUPERVISOR CONDITIONING YARD Gender Identity Female 02/02/2018 11:17 AM SUPERVISOR CONDITIONING YARD Sexual Orientation Straight 02/02/2018 11 :17 AM SUPERVISOR CONDITIONING YARD documented as of this encounter Miscellaneous Notes * Telephone Encounter - Rula Wagner - 10/11/2024 7:13 AM CDT Form completed and faxed to listed facility. Copy sent to scanning. * Telephone Encounter - Zayda Harris - 10/10/2024 4:59 PM CDT Form emailed to Susi Lemus for review/signature SENIOR WINDOWS ENGINEER: Ana HUTCHINSON PHONE NUMBER: INFO REQUESTED: Initial Eval 09/22/24 INSTRUCTIONS: Fax back to [phone] documented in this encounter Plan of Treatment Upcoming Encounters Date Type Department Care Team (Late st Contact Info) Description 02/20/2025 12:30 PM SUPERVISOR CONDITIONING YARD Appointment Department of Laboratory Medicine in [place], [place] [address] [place] [phone] Susi Lemus MPAS, P.A.-C. [address] [place] [phone] 02/20/2025 1:30 PM SUPERVISOR CONDITIONING YARD Office Visit Department of Community Internal Medicine in [place], [place] [address] [place] [address] Susi Lemus MPAS, P.A.-C. [address] [place] [phone] documented as of this encounter Visit Diagnoses Not on filedocumented in this encounter Additional Health Concerns Assessment Noted Time PHQ-9 Depression Total Score: 7 08/16/19 12:54 PM CDT documented as of this encounter Care Teams Manager Support Services Relationship Specialty Start Date End Date Susi Lemus MPAS, P.A.-C. [address] [place] [phone] PCP - General Internal Medicine 08/02/24 documented as of this encounter
--- OUTSIDE RECORDS SUMMARY | 2024-11-14 12:59 | XMS_ITS | Encounter Summary ---
Author Organization [facility] Address [address] [place] [address] Care Team Providers Care Apparatus Lineman Name Role Phone Susi Lemus P.A.-C. Primary Care Pro vider Encounter Details Date Type Department Care Team (Late st Contact Info) Description 06/28/2010 Historical Ophthalmology RST OPH Denver Murphy M.D. [address] [place] [address] Social History Tobacco Use Types Packs/Day Years Used Date Smoking Tobacco: Never Assessed Comments Unknown Sex and Gender Information Value Date Recorded Sex Assigned at Female 03/22/2023 10:14 PM SCHOOL SUPERINTENDENT Legal Sex Female 5:31 AM SCHOOL SUPERINTENDENT Gender Identity Female 02/02/2018 11:17 AM SCHOOL SUPERINTENDENT Sexual Orientation Straight 02/02/2018 11 :17 AM SCHOOL SUPERINTENDENT documented as of this encounter Progress Notes [...] of insurance coverage reviewed; will submit to [facility] for preauthorization. Patient asked to avoid aspirin, NSAIDs, and other anticoagulants for 10 days preoperatively if medically safe to do so. DIAGNOSIS #1 Ptosis, left upper eyelid #2 Dermatochalasis, both upper eyelids #3 Mild left brow ptosis CDM Reports - EYEGEN Id: [id number] Status: Fnl documented in this encounter Plan of Treatment Upcoming Encounters Date Type Department Care Team (Late st Contact Info) Description 02/20/2025 12:30 PM SCHOOL SUPERINTENDENT Appointment Department of Laboratory Medicine in [address] [phone] Susi Lemus MPAS, P.A.-C. [address] [place] [address] 02/20/2025 1:30 PM SCHOOL SUPERINTENDENT Office Visit Department of Community Internal Medicine in [address] [address] Susi Lemus MPAS, P.A.-C. [address] [place] [address] documented as of this encounter Visit Diagnoses Not on filedocumented in this encounter Additional Health Concerns Infection Onset Date Last Indicated Resolved Time COVID19 Pending 09/30/2019 09/30/2019 10/01/2019 6 :52 PM CDT Assessment Noted Time PHQ-9 Depression Total Score: 15 008 4:27 PM CDT documented as of this encounter Care Teams Apparatus Lineman Relationship Specialty Start Date End Date Susi Lemus MPAS, P.A.-C. [address] [facility] [place] [address] PCP - General Internal Medicine 08/02/24 documented as of this encounter
--- OUTSIDE RECORDS SUMMARY | 2024-11-14 12:59 | XMS_ITS | Encounter Summary ---
Author Organization [facility] Address [address] [place] [address] Care Team Providers Care Database Developer Name Role Phone Susi Lemus P.A.-C. Primary Care Pro vider Encounter Details Date Type Department Care Team (Late st Contact Info) Description 06/25/2005 Historical Ophthalmology RST OPH Mello Paz O.D., Ph.D. Social History Tobacco Use Types Packs/Day Years Used Date Smoking Tobacco: Never Assessed Comments Unknown Sex and Gender Information Value Date Recorded Sex Assigned at Female 03/22/2023 10:14 PM CARDIOVASCULAR LAB DIRECTOR Legal Sex Female 5:31 AM CARDIOVASCULAR LAB DIRECTOR Gender Identity Female 02/02/2018 11:17 AM CARDIOVASCULAR LAB DIRECTOR Sexual Orientation Straight 02/02/2018 11 :17 AM CARDIOVASCULAR LAB DIRECTOR documented as of this encounter Progress [...] presbyopia, anisometropia). CDM Reports - EYESV Id: [id number] Status: Fnl documented in this encounter Plan of Treatment Upcoming Encounters Date Type Department Care Team (Late st Contact Info) Description 02/20/2025 12:30 PM CARDIOVASCULAR LAB DIRECTOR Appointment Department of Laboratory Medicine in [place], [place] [address] [place] [phone] Susi Lemus MPAS, P.A.-C. [address] [place] [phone] 02/20/2025 1:30 PM CARDIOVASCULAR LAB DIRECTOR Office Visit Department of Community Internal Medicine in [place], [place] [address] [place] [phone] Susi Lemus MPAS, P.A.-C. [address] [place] [phone] documented as of this encounter Visit Diagnoses Not on filedocumented in this encounter Additional Health Concerns Infection Onset Date Last Indicated Resolved Time COVID19 Pending 09/30/2019 09/30/2019 10/01/2019 6 :52 PM CDT documented as of this encounter Care Teams Database Developer Relationship Specialty Start Date End Date Susi Lemus MPAS, P.A.-C. [address] [place] [phone] PCP - General Internal Medicine 08/02/24 documented as of this encounter
--- OUTSIDE RECORDS SUMMARY | 2024-11-14 12:59 | XMS_ITS | Clinical Summary ---
Author Organization [facility] Address [address] [place] [address] Care Team Providers Care Rodding Machine Tender Name Role Phone Suis Lemus P.A.-C. Primary Care Pro vider Source Comments Patient records contain information from all sites at [facility]. For routine questions regarding patient records, call [phone] during business hours, M-F 8:00 AM - 5:00 PM Central Time. Record requests for emergency care only can be directed to [phone] at any time.[facility] Allergies Active Allergy Reactions Criticality Noted Date Comments Nsaids (Non-Steroidal Anti-Inflammatory Drug) Renal Failure Medium 02/20/2003 Elevated creatinine due to only having one kidney Medications UNABLE TO FIND Take by mouth daily. Med Name: Instaflex Active acetaminophen (TYLENOL) 500 mg tablet Take 1,000 mg by mouth every 6 (six) hours as needed. 03/12/19 24 Active miconazole (MICATIN) 2 % cream APPLY TOPICALLY TO AFFECTED SKIN UNDER BILATERAL BREASTS (ESPECIALLY RIGHT BREAST) TWICE DAILY UNTIL RESOLVED. DO NOT PLACE OVER {ADTDIR} 03/12/19 24 Active lidocaine HCL (ASPERCREME) 4 % cream cream Apply topically to intact skin 4 times daily for neuropathic or musculoskeletal pain. Do not place over incision, wound, or rash area. 03/12/19 24 Active lidocaine (LMX) 4 % cream APPLY TOPICALLY TO INTACT SKIN 4 TIMES DAILY FOR NEUROPATHIC OR MUSCULOSKELETAL PAIN. DO NOT PLACE OVER INCISION, WOUND, OR RASH AREA. 03/12/19 24 Active ketoconazole (NIZORAL) 2 % shampoo Shampoo twice weekly , leave on for 5-10 minutes, then rinse. 120 mL 11 04/01/19 24 Active senna 8.6 mg tablet TAKE 2 TABLETS (17.2 MG) BY MOUTH ONCE DAILY. 180 tablet 3 04/27/19 Active miconazole 2 % powder Apply topically daily. Apply to under breast after shower . 43 g 08/02/2024 2:11 PM CDT 08/03/19 25 Active gabapentin (Neurontin) 100 mg capsule TAKE 1 CAPSULE (100 MG TOTAL) BY MOUTH AT BEDTIME. 90 capsule 3 08/17/2024 1:16 PM CDT 08/18/19 25 Active DULoxetine (Cymbalta) [address] capsule TAKE 2 CAPSULES (120 MG TOTAL) BY MOUTH DAILY. 180 capsule 3 08/17/2024 1:17 PM CDT 08/18/19 25 Active Eliquis 5 mg tablet TAKE 1 TABLET (5 MG TOTAL) BY MOUTH 2 (TWO) TIMES A DAY. 180 tablet 3 08/17/2024 1:17 PM CDT 08/18/19 25 Active baclofen (LioresaL) 10 mg tablet TAKE 1 TABLET (10 MG TOTAL) BY MOUTH 2 (TWO) TIMES A DAY. 180 tablet 3 08/17/2024 1:17 PM CDT 08/18/19 25 Active atorvastatin (Lipitor) 80 mg tablet TAKE 1 TABLET (80 MG TOTAL) BY MOUTH AT BEDTIME. 90 tablet 3 08/17/2024 1:16 PM CDT 08/18/19 25 Active WHEELCHAIR [facility] Wheelchair: Standard with leg rests: (Swing away Length of need: 99 months 03/05/20 23 Active DME Oxygen Oxygen for home use. Liters per minute: 2 per nasal cannula. Frequency of use: Nocturnal;. Length of need: 99 Months. 03/12/19 24 Active busPIRone (BuSpar) 5 mg tablet Take 1 tablet (5 mg total) by mouth 2 (two) times a day. 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 Med Refill 10/19/2024 Clinical Communication Department of Community Internal Medicine in [place], [place] [address] [place] [address] Susi Lemus MPAS, P.A.-C. PandaDoc Form ([facility] [employer] - SWO & LMN orthotics L1951, [id number] 09/26 ) 10/10/2024 Results Follow-Up Department of Community Internal Medicine in [address] [place] [phone] Susi Lemus MPAS, P.A.-C. DX Shoulder Bilateral 2+ Views 10/10/2024 Clinical Communication Department of Community Internal Medicine in [address] [phone] Susi Lemus MPAS, P.A.-C. PandaDoc Form ([place] [facility] - Initial Eval 09/22/24) 10/07/2024 4:13 PM CDT - 10/07/2024 11:59 PM CDT Hospital Encounter Department of Radiology in [address] [address] Susi Lemus MPAS, P.A.-C. Pain Shoulder Left; Pain Shoulder Right Discharge Disposition: Home or Self Care 10/07/2024 3:30 PM CDT Office Visit Department of Community Internal Medicine in [address] [phone] Susi Lemus MPAS, P.A.-C. Pain Shoulder Left (Primary Dx); Pain Shoulder Right; Hyperlipidemia; Chronic Kidney Disease (CKD), Stage 3b Glomerular Filtration Rate (GFR) 30 To 44 (HCC); Incontinence Urinary; Leukocytosis 09/06/2024 Orders Only [facility] PCP TH MNT Susi Lemus MPAS, P.A.-C. Screening Mammogram Breast Cancer 08/17/2024 Results Follow-Up Department of Community Internal Medicine in [address] [phone] Susi Lemus MPAS, P.A.-C. ECG 12 Lead, Lipid Panel, Hemoglobin A1c, Additional followed-up results: 2 08/15/2024 1:45 PM CDT - 08/15/2024 11:59 PM CDT Hospital Encounter Department of Laboratory Medicine in [address] [address] Susi Lemus MPAS, P.A.-Bashir Hyperlipidemia; Screening Examination Diabetes Mellitus; Solitary Kidney Congenital Discharge Disposition: Home or Self Care 08/15/2024 1:45 PM CDT - 08/15/2024 11:59 PM CDT Hospital Encounter Department of Laboratory Medicine in [address] [phone] Susi Lemus MPAS P.A.-CChetna Atrial Fibrillation Unspecified (HCC) Discharge Disposition: Home or Self Care 08/15/2024 1:00 PM CDT Office Visit Department of Community Internal Medicine in [address] [address] Susi Lemus MPAS, P.A.-CChetna Weakness Leg Right (Primary Dx); Stroke Cerebrovascular Accident Personal History; Hemiplegia And Hemiparesis Following Cerebral Infarction Affecting Right Dominant Side (HCC); Atrial Fibrillation Unspecified (HCC); Solitary Kidney Congenital; Chronic Kidney Disease (CKD), Stage 3b Glomerular Filtration Rate (GFR) 30 To 44 (HCC); Depression Major Recurrent Moderate (HCC); Posttraumatic Stress Disorder Prolonged; Chronic Pain Syndrome; Anxiety Generalized Disorder; Hyperlipidemia; Screening Examination Diabetes Mellitus from Last 3 Months Immunizations Immunization Administration [...] Name Comments Lung cancer Brother 1 emma mulligan Lung cancer Brother 2 emma mulligan Coronary artery disease Brother 3 Jhony mulligan Sleep apnea Brother 3 Jhony mulligan Stroke Father 1 patricia mulligan Stroke Father 2 patricia mulligan Breast cancer Mother 1 Coronary artery disease Mother 2 zak mulligan Breast cancer Mother 3 zak mulligan Sister Ronda Molina Coronary artery disease Mother 3 zak mulligan Breast cancer Sister Mitzi molina Relation Name Status Comments Brother 1 emma mulligan Brother 2 emma mulligan Alive Brother 3 Jhoyn mulligan Alive Father 1 patricia mulligan Father 2 patricia mulligan Alive Mother 1 Mother 2 zak mulligan Mother 3 zak mulligan Alive Sister Mitzi molina Alive Social History Tobacco Use Types Packs/Day Years Used Date Smoking Tobacco: Never Passive Smoke Exposure: Past Smokeless Tobacco: Never Tobacco Cessation:Counseling Given: Not Answered Alcohol Use Standard Drinks/Week Comments Not Currently 0 (1 standard drink = 0.6 oz pur e alcohol) basicly nil [facility] Utilities Answer Date Recorded In the past 12 months has e [employer], gas, oil, or water [employer] threatened to shut off services in your [...] your living situation today? I have a [facility] place to live 08/15/2024 Education Answer Date Recorded What is the highest level of school you have completed or the highest degree you have received? Associate degree: occupational, technical, or vocational program 12/09/2021 Comments No Sex and Gender Information Value Date Recorded Sex Assigned at Female 03/22/2023 10:14 PM BRAN MIXER Legal Sex Female 5:31 AM BRAN MIXER Gender Identity Female 02/02/2018 11:17 AM BRAN MIXER Sexual Orientation Straight 02/02/2018 11 :17 AM BRAN MIXER Last Filed Vital Signs Vital Sign Reading Time Taken Comments Blood Pressure 111/79 10/07/2024 3:27 PM CDT Pulse 72 10/07/2024 3:27 PM CDT Temperature 36.4 C (97.5 F) 10/07/2024 3:21 PM CDT Respiratory Rate 20 08/15/2024 12:5 2 PM CDT Oxygen Saturation 99% 12/17/2021 1:00 AM CDT Inhaled Oxygen Concentration - - Weight 92 kg (202 lb 13.2 oz) 08/26/2021 3:38 PM CDT with shoes Height 154.9 cm (5' 1) 12/16/2021 7:08 PM CDT Body Mass Index 40.24 03/14/2019 9:07 AM BRAN MIXER Plan of Treatment Upcoming Encounters Date Type Department Care Team (Late st Contact Info) Description 02/20/2025 12:30 PM BRAN MIXER Appointment Department of Laboratory Medicine in [place], [place] [address] [place] [address] Susi Lemus MPAS, P.A.-CChetna [address] [place] [address] 02/20/2025 1:30 PM BRAN MIXER Office Visit Department of Community Internal Medicine in [place], [place] [address] [facility] [address] Susi Lemus MPAS, P.A.-CChetna [address] [place] [phone] Health Maintenance Due Date Last Done Comments CT Colonography 1950 Cologuard 1950 FIT 1950 Hepatitis C Screening 1950 Visit: Medicare Annual Wellness 1950 Hepatitis A Vaccines (2 of 2 - Risk 2-dose series) 06/27/1998 12/27/1997, 07/05/1997 Colonoscopy 04/06/2011 04/06/2001 Colorectal Cancer Screening 04/06/2011 RSV vaccine - (32-36 weeks) or 60+ years (1 - Risk 60-74 years 1-dose series) 2012 Zoster Vaccines (3 of 3) 05/09/2019 03/14/2019, 12/08 Mammogram 05/05/2024 05/05/2023, 06/07, 06/19/2020, Additional history exists COVID-19 Vaccine ( season) 2024 06/18/2021, 06/19/2020, 05/18/2020 Influenza Vaccine (#1) 2024 0, 12/09/2016, 01/02/2015, Additional history exists Depression Monitoring (PHQ-9) 12/15/2024 08/15/2024 Office Visit for Blood Pressure Check / Re-check 10/07/2025 10/07/2024 Visit: Annual, age 65+ (or Medicare and <65) 10/07/2025 10/07/2024 DTaP,Tdap,and Td Vaccines (3 - Td or [...] (50+ years) Completed 06/18/2021, 10/11/2018, 07/05/1997 Depression Monitoring (PHQ-9 for quality tracking) Completed 08/15/2024, 08/15/2024 Fall Risk Screen (Annual) Completed 08/15/2024 Procedures Procedure Name Priority Date/Time Associated Diagnosis Comments DX SHOULDER BILATERAL 2+ VIEWS RAD - Routine (most inpatients and all outpatients) 10/07/2024 4:58 PM CDT Pain Shoulder Left Pain Shoulder Right CBC WITH DIFFERENTIAL, B Routine 08/15/2024 2:15 [...] inpatients and all outpatients) 05/05/2023 2:06 PM BRAN MIXER Screening Mammogram Breast Cancer from Last 3 Months or Most Recently Relevant to Health Maintenance Results * DX Shoulder Bilateral 2+ Views [...] tuberosity. No fracture or dislocation. us Susi GUZMAN, P.A.-C. IMG DIAGNOSTIC IM AGING PROCEDURES Final Result * Lipid Panel (08/15/2024 2:15 PM CDT) [...] GUZMAN, P.A.-C. LAB BLOOD ADD-ON Final Result [facility] [address] [place] [address], [place] OW[place] [facility] [place] [facility] in [place] [address] [place] [address] * (ABNORMAL) CBC with Differential, Blood (08/15/2024 [...] GUZMAN, P.A.-C. LAB BLOOD ADD-ON Final Result [facility] [address] [place] [address], [facility] OWAT [facility] in [place] [address] [place] [address] * Hemoglobin A1c (08/15/2024 2:15 PM CDT) Hemoglobin A1c, B 5.6 4.2 - 5.6 % 08/15/2024 6:14 PM CDT OWAT Blood (Blood, Venous) 08/15/2024 2:15 PM CDT 08/15/2024 5:44 PM CDT Susi GUZMAN, P.A.-C. LAB BLOOD ADD-ON Final Result [facility] [address] [place] [address], [facility] OWAT [facility] in [place] [address] [place] [address] * (ABNORMAL) Basic Metabolic Panel (08/15/2024 2:15 [...] GUZMAN, P.A.-C. LAB BLOOD ADD-ON Final Result [facility] [address] [place] [address], [place] OW[place] [facility] in [place] [address] [place] [address] * ECG 12 Lead (08/15/2024 1:56 PM CDT) Ventricular Rate ECG/Min 76 BPM MUSE MS Interval 150 ms MUSE QRSD Interval 78 ms MUSE QT Interval 388 ms MUSE QTC Interval 436 ms MUSE R Leland -27 degrees MUSE T Wave Leland 25 degrees MUSE 08/15/2024 1:56 PM CDT [...] Anterior leads Reviewed by MAYLIN Byrne Susi GUMZAN, P.A.-C. ECG ORDERABLES E dited Result - Final MUSE NA * BI Breast Screening Bilateral with Tomosynthesis (05/05/2023 2:06 PM BRAN MIXER) Anatomical Region Laterality Modality Breast, Breast Imaging RST L OS, Breast Imaging ARZ LOS, Breast Imaging FLA LOS Bilateral Mammography Impressions 05/05/2023 4:20 PM BRAN MIXER Negative. RECOMMENDATION: Annual Screening Mammogram ASSESSMENT: BI-RADS: 1: Negative. Narrative 05/05/2023 4:20 PM BRAN MIXER EXAM: BI BREAST SCREENING BILATERAL WITH TOMOSYNTHESIS [...] Screening Mammogram ASSESSMENT: BI-RADS: 1: Negative. Manish HUNTG BI PROCEDURES Final Result from Last 3 Months or Most Recently Relevant to Health Maintenance Insurance [place] [employer] Advance Directives For more information, please contact: [phone] Documents on File Type Date Recorded Patient Auction Assistant Expl anation Advance Directives 04/02/2023 8:51 AM POLS T/MOLST Care Teams Rodding Machine Tender Relationship Specialty Start Date End Date Susi Lemus MPAS, P.A.-C. [address] [facility] [place] [phone] PCP - General Internal Medicine 08/02/24
--- OUTSIDE RECORDS SUMMARY | 2024-11-14 12:59 | XMS_ITS | Encounter Summary ---
Author Organization [facility] Address [address] [place] [address] Care Team Providers Care Camp Counselor Name Role Phone Susi Lemus P.A.-CChetna Primary Care Pro vider Reason for Visit * Reason Comments Med Refill Encounter Details Date Type Department Care Team (Late st Contact Info) Description 11/11/2024 Refill Department of Community Internal Medicine in [place], [place] [address] [place] [address] Susi Lemus MPAS, P.A.-CChetna [address] [place] [phone] Med Refill Social History Tobacco Use Types Packs/Day Years Used Date Smoking Tobacco: Never Passive Smoke Exposure: Past Smokeless Tobacco: Never Alcohol Use Standard Drinks/Week Comments Not Currently 0 (1 standard drink = 0.6 oz pur e alcohol) basicly nil [facility] Utilities Answer Date Recorded In the [...] your living situation today? I have a [facility] place to live 08/15/2024 Education Answer Date Recorded What is the highest level of school you have completed or the highest degree you have received? Associate degree: occupational, technical, or vocational program 12/09/2021 Comments No Sex and Gender Information Value Date Recorded Sex Assigned at Female 03/22/2023 10:14 PM POLICE WORKER Legal Sex Female 5:31 AM POLICE WORKER Gender Identity Female 02/02/2018 11:17 AM POLICE WORKER Sexual Orientation Straight 02/02/2018 11 :17 AM POLICE WORKER documented as of this encounter Plan of Treatment Upcoming Encounters Date Type Department Care Team (Late st Contact Info) Description 02/20/2025 12:30 PM POLICE WORKER Appointment Department of Laboratory Medicine in [place], [place] [address] [facility] [place] [phone] Susi Lemus MPAS, P.A.-C. [address] [place] [phone] 02/20/2025 1:30 PM POLICE WORKER Office Visit Department of Community Internal Medicine in [place], [place] [address] [place] [address] Susi Lemus MPAS, Noa [address] [facility] [place] [address] documented as of this encounter Visit Diagnoses Not on filedocumented in this encounter Additional Health Concerns Assessment Noted Time PHQ-9 Depression Total Score: 7 08/16/19 12:54 PM CDT documented as of this encounter Care Teams Camp Counselor Relationship Specialty Start Date End Date Susi Lemus MPAS, PChetnaA.-C. 300 [facility] [place] [address] PCP - General Internal Medicine 08/02/24 documented as of this encounter
--- OUTSIDE RECORDS SUMMARY | 2024-11-14 12:59 | XMS_ITS | Encounter Summary ---
Author Organization [facility] Address [address] [place] [address] Care Team Providers Care Implementation Engineer Name Role Phone Susi Lemus P.A.-C. Primary Care Pro vider Encounter Details Date Type Department Care Team (Late st Contact Info) Description 07/23/2011 Historical Ophthalmology RST OPH Candace Gerenwood O.D. [address] [place] [address] Social History Tobacco Use Types Packs/Day Years Used Date Smoking Tobacco: Never Assessed Comments Unknown Sex and Gender Information Value Date Recorded Sex Assigned at Female 03/22/2023 10:14 PM SOCIAL WORKER AIDE Legal Sex Female 5:31 AM SOCIAL WORKER AIDE Gender Identity Female 02/02/2018 11:17 AM SOCIAL WORKER AIDE Sexual Orientation Straight 02/02/2018 11 :17 AM SOCIAL WORKER AIDE documented as of this encounter Progress Notes [...] astigmatism, presbyopia). CDM Reports - EYEGEN Id: [id number] Status: Fnl documented in this encounter Plan of Treatment Upcoming Encounters Date Type Department Care Team (Late st Contact Info) Description 02/20/2025 12:30 PM SOCIAL WORKER AIDE Appointment Department of Laboratory Medicine in [place], [place] [address] [place] [phone] Susi Lemus MPAS, P.A.-C. [address] [place] [phone] 02/20/2025 1:30 PM SOCIAL WORKER AIDE Office Visit Department of Community Internal Medicine in [place], [place] [address] [place] [phone] Susi Lemus MPAS, P.A.-C. [address] [place] [phone] documented as of this encounter Visit Diagnoses Not on filedocumented in this encounter Additional Health Concerns Infection Onset Date Last Indicated Resolved Time COVID19 Pending 09/30/2019 09/30/2019 10/01/2019 6 :52 PM CDT Assessment Noted Time PHQ-9 Depression Total Score: 15 08/31/2 008 4:27 PM CDT documented as of this encounter Care Teams Implementation Engineer Relationship Specialty Start Date End Date Susi Lemus MPAS, P.A.-C. [address] [place] [phone] PCP - General Internal Medicine 08/02/24 documented as of this encounter
--- OUTSIDE RECORDS SUMMARY | 2024-11-14 12:59 | XMS_ITS | Encounter Summary ---
Author Organization [facility] Address [address] [place] [address] Care Team Providers Care Finance Broker Name Role Phone Susi Lemus P.A.-C. Primary Care Pro vider Encounter Details Date Type Department Care Team (Late st Contact Info) Description 12/25/2014 Historical Ophthalmology RST OPH Jair Emerson O.D. [address] [place] [address] Social History Tobacco Use Types Packs/Day Years Used Date Smoking Tobacco: Never Assessed Comments Unknown Sex and Gender Information Value Date Recorded Sex Assigned at Female 03/22/2023 10:14 PM ROLL PRESS OPERATOR Legal Sex Female 5:31 AM ROLL PRESS OPERATOR Gender Identity Female 02/02/2018 11:17 AM ROLL PRESS OPERATOR Sexual Orientation Straight 02/02/2018 11 :17 AM ROLL PRESS OPERATOR documented as of this encounter Progress [...] Cataracts both CDM Reports - EYEGEN Id: [id number] Status: Fnl documented in this encounter Plan of Treatment Upcoming Encounters Date Type Department Care Team (Late st Contact Info) Description 02/20/2025 12:30 PM ROLL PRESS OPERATOR Appointment Department of Laboratory Medicine in [place], [place] [address] [place] [address] Susi Lemus MPAS, P.A.-C. [address] [place] [address] 02/20/2025 1:30 PM ROLL PRESS OPERATOR Office Visit Department of Community Internal Medicine in [place], [place] [address] [facility] [place] [address] Susi Lemus MPAS, P.A.-C. 300 [facility] [place] [address] documented as of this encounter Visit Diagnoses Not on filedocumented in this encounter Additional Health Concerns Infection Onset Date Last Indicated Resolved Time COVID19 Pending 09/30/2019 09/30/2019 10/01/2019 6 :52 PM CDT Assessment Noted Time PHQ-9 Depression Total Score: 4 07/18/19 15 9:01 AM CDT documented as of this encounter Care Teams Finance Broker Relationship Specialty Start Date End Date Susi Lemus MPAS, P.A.-C. [address] [facility] [place] [phone] PCP - General Internal Medicine 08/02/24 documented as of this encounter
--- OUTSIDE RECORDS SUMMARY | 2024-11-14 12:59 | XMS_ITS | Encounter Summary ---
Author Organization [facility] Address [address] [place] [address] Care Team Providers Care Asbestos Cloth Inspector Name Role Phone Susi Lemus P.A.-C. Primary Care Pro vider Encounter Details Date Type Department Care Team (Late st Contact Info) Description 06/19/2010 Historical Ophthalmology RST OPH Racheal Gunderson O.D. Social History Tobacco Use Types Packs/Day Years Used Date Smoking Tobacco: Never Assessed Comments Unknown Sex and Gender Information Value Date Recorded Sex Assigned at Female 03/22/2023 10:14 PM MATERIALS INTERN Legal Sex Female 5:31 AM MATERIALS INTERN Gender Identity Female 02/02/2018 11:17 AM MATERIALS INTERN Sexual Orientation Straight 02/02/2018 11 :17 AM MATERIALS INTERN documented as of this encounter Progress Notes [...] to oculoplastics. CDM Reports - EYEGEN Id: [id number] Status: Fnl documented in this encounter Plan of Treatment Upcoming Encounters Date Type Department Care Team (Late st Contact Info) Description 02/20/2025 12:30 PM MATERIALS INTERN Appointment Department of Laboratory Medicine in [place], [place] [address] [place] [address] Susi Lemus MPAS, P.A.-C. [address] [place] [phone] 02/20/2025 1:30 PM MATERIALS INTERN Office Visit Department of Community Internal Medicine in [place], [place] [address] [facility] [place] [phone] Susi Lemus MPAS, P.A.-C. [address] [place] [phone] documented as of this encounter Visit Diagnoses Not on filedocumented in this encounter Additional Health Concerns Infection Onset Date Last Indicated Resolved Time COVID19 Pending 09/30/2019 09/30/2019 10/01/2019 6 :52 PM CDT Assessment Noted Time PHQ-9 Depression Total Score: 15 08/31/ 008 4:27 PM CDT documented as of this encounter Care Teams Asbestos Cloth Inspector Relationship Specialty Start Date End Date Susi Lemus MPAS, P.A.-C. 300 [facility] [place] [address] PCP - General Internal Medicine 08/02/24 documented as of this encounter
--- OUTSIDE RECORDS SUMMARY | 2024-11-14 12:59 | XMS_ITS | Encounter Summary ---
Author Organization [facility] Address [address] [place] [address] Care Team Providers Care Speech And Language Tutor Name Role Phone Susi Lemus P.A.-C. Primary Care Pro vider Encounter Details Date Type Department Care Team (Late st Contact Info) Description 12/08/2003 Historical Ophthalmology RST OPH Antonino Arias M.D. Social History Tobacco Use Types Packs/Day Years Used Date Smoking Tobacco: Never Assessed Comments Unknown Sex and Gender Information Value Date Recorded Sex Assigned at Female 03/22/2023 10:14 PM PLUMBING INSTRUCTOR Legal Sex Female 5:31 AM PLUMBING INSTRUCTOR Gender Identity Female 02/02/2018 11:17 AM PLUMBING INSTRUCTOR Sexual Orientation Straight 02/02/2018 11 :17 AM PLUMBING INSTRUCTOR documented as of this encounter Progress Notes [...] been comfortable at near, but is comfortable atdistance. IMPRESSION / REPORT / PLAN #1 Refractive error (myopic astigmatism, presbyopia). Plan: spectacle prescription given. 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 More comfortable without glasses for reading. Could try monovision contact lenses. DIAGNOSIS #1 Refractive error (myopic astigmatism, presbyopia). CDM Reports - EYEGEN Id: [id number] Status: Fnl documented in this encounter Plan of Treatment Upcoming Encounters Date Type Department Care Team (Late st Contact Info) Description 02/20/2025 12:30 PM PLUMBING INSTRUCTOR Appointment Department of Laboratory Medicine in [place], [place] [address] [place] [address] Susi Lemus MPAS, P.A.-C. [address] [place] [address] 02/20/2025 1:30 PM PLUMBING INSTRUCTOR Office Visit Department of Community Internal Medicine in [place], [place] [address] [facility] [place] [address] Susi Lemus MPAS, P.A.-C. [address] [place] [address] documented as of this encounter Visit Diagnoses Not on filedocumented in this encounter Additional Health Concerns Infection Onset Date Last Indicated Resolved Time COVID19 Pending 09/30/2019 09/30/2019 10/01/2019 6 :52 PM CDT documented as of this encounter Care Teams Speech And Language Tutor Relationship Specialty Start Date End Date Susi Lemus MPAS, P.A.-C. [address] [place] [address] PCP - General Internal Medicine 08/02/24 documented as of this encounter
--- OUTSIDE RECORDS SUMMARY | 2024-11-14 12:59 | XMS_ITS | Encounter Summary ---
Author Organization [facility] Address [address] [place] [address] Care Team Providers Care Operations Executive Name Role Phone Susi Lemus P.A.-C. Primary Care Pro vider Encounter Details Date Type Department Care Team (Late st Contact Info) Description 09/22/2007 Historical Ophthalmology RST OPH Antonino Arias M.D. Social History Tobacco Use Types Packs/Day Years Used Date Smoking Tobacco: Never Assessed Comments Unknown Sex and Gender Information Value Date Recorded Sex Assigned at Female 03/22/2023 10:14 PM RADIO STATION ENGINEER Legal Sex Female 5:31 AM RADIO STATION ENGINEER Gender Identity Female 02/02/2018 11:17 AM RADIO STATION ENGINEER Sexual Orientation Straight 02/02/2018 11 :17 AM RADIO STATION ENGINEER documented as of this encounter Progress Notes [...] left eye. CDM Reports - EYEGEN Id: [id number] Status: Fnl documented in this encounter Plan of Treatment Upcoming Encounters Date Type Department Care Team (Late st Contact Info) Description 02/20/2025 12:30 PM RADIO STATION ENGINEER Appointment Department of Laboratory Medicine in [place], [place] [address] [place] [address] Susi Lemus MPAS, P.A.-C. [address] [place] [address] 02/20/2025 1:30 PM RADIO STATION ENGINEER Office Visit Department of Community Internal Medicine in [place], [place] [address] [place] [address] Susi Lemus MPAS, P.A.-C. [address] [place] [address] documented as of this encounter Visit Diagnoses Not on filedocumented in this encounter Additional Health Concerns Infection Onset Date Last Indicated Resolved Time COVID19 Pending 09/30/2019 09/30/2019 10/01/2019 6 :52 PM CDT Assessment Noted Time PHQ-9 Depression Total Score: 15 08/31/ 008 4:27 PM CDT documented as of this encounter Care Teams Operations Executive Relationship Specialty Start Date End Date Susi Lemus MPAS, P.A.-C. [address] [place] [address] PCP - General Internal Medicine 08/02/24 documented as of this encounter
--- OUTSIDE RECORDS SUMMARY | 2024-11-14 12:59 | XMS_ITS | Encounter Summary ---
Author Organization [facility] Address [address] [place] [address] Care Team Providers Care Bedspread Inspector Name Role Phone Susi Lemus P.A.-C. Primary Care Pro vider Encounter Details Date Type Department Care Team (Late st Contact Info) Description 02/02/2012 Confidential HX RST NO MAPPING Rodri Chambers M.D., M.P.H. [address] [place] [phone] Social History Tobacco Use Types Packs/Day Years Used Date Smoking Tobacco: Never Assessed Comments Unknown Sex and Gender Information Value Date Recorded Sex Assigned at Female 03/22/2023 10:14 PM MOVIE STUNT PERFORMER Legal Sex Female 5:31 AM MOVIE STUNT PERFORMER Gender Identity Female 02/02/2018 11:17 AM MOVIE STUNT PERFORMER Sexual Orientation Straight 02/02/2018 11 :17 AM MOVIE STUNT PERFORMER documented as of this encounter Progress Notes * Rodri Chambers M.D., M.P.H. - 02/02/2012 10:50 AM CST DEMOGRAPHIC INFORMATION Clinic Number: [id number] Patient Name: Ms. Kimberly Cuadra, R.Courtney. Age: 61 Y Birthdate: 1950 Sex: F Address: [address] [place] [address] City: [place] [address] CONFIDENTIAL NOTE Service Date/Time: 02-Feb-2012 10:50 Provider: Rodri Chambers MD, MPH Pager: [phone] Service: PREV Type/Desc: LE Status: Fnl Revision [...] Adolfo Chambers MD, MPH Clinical Notes - [id number] Id: [id number] Status: Fnl E STUNT PERFORMER documented in this encounter Plan of Treatment Upcoming Encounters Date Type Department Care Team (Late st Contact Info) Description 02/20/2025 12:30 PM MOVIE STUNT PERFORMER Appointment Department of Laboratory Medicine in [place], [place] [address] [place] [address] Susi Lemus MPAS, P.A.-C. [address] [place] [address] 02/20/2025 1:30 PM MOVIE STUNT PERFORMER Office Visit Department of Community Internal Medicine in [place], [place] [address] [facility] [address] Susi Lemus MPAS, P.A.-C. [address] [place] [address] documented as of this encounter Visit Diagnoses Not on filedocumented in this encounter Additional Health Concerns Infection Onset Date Last Indicated Resolved Time COVID19 Pending 09/30/2019 09/30/2019 10/01/2019 6 :52 PM CDT Assessment Noted Time PHQ-9 Depression Total Score: 12 012 8:46 AM CDT documented as of this encounter Care Teams Bedspread Inspector Relationship Specialty Start Date End Date Susi Lemus MPAS, P.A.-C. [address] [place] [address] PCP - General Internal Medicine 08/02/24 documented as of this encounter
--- OUTSIDE RECORDS SUMMARY | 2024-11-14 12:59 | XMS_ITS | Encounter Summary ---
Author Organization [facility] Address [address] [place] [address] Care Team Providers Care Breaker Boss Name Role Phone Susi Lemus P.A.-C. Primary Care Pro vider Encounter Details Date Type Department Care Team (Late st Contact Info) Description 06/25/2005 Historical Ophthalmology RST OPH Antonino Arias M.D. Social History Tobacco Use Types Packs/Day Years Used Date Smoking Tobacco: Never Assessed Comments Unknown Sex and Gender Information Value Date Recorded Sex Assigned at Female 03/22/2023 10:14 PM SITE LEAD Legal Sex Female 5:31 AM SITE LEAD Gender Identity Female 02/02/2018 11:17 AM SITE LEAD Sexual Orientation Straight 02/02/2018 11 :17 AM SITE LEAD documented as of this encounter Progress Notes [...] left eye. CDM Reports - EYEGEN Id: [id number] Status: Fnl documented in this encounter Plan of Treatment Upcoming Encounters Date Type Department Care Team (Late st Contact Info) Description 02/20/2025 12:30 PM SITE LEAD Appointment Department of Laboratory Medicine in [place], [place] [address] [place] [address] Susi Lemus MPAS, P.A.-C. [address] [place] [address] 02/20/2025 1:30 PM SITE LEAD Office Visit Department of Community Internal Medicine in [place], [place] [address] [place] [address] Susi Lemus MPAS, P.A.-C. [address] [place] [address] documented as of this encounter Visit Diagnoses Not on filedocumented in this encounter Additional Health Concerns Infection Onset Date Last Indicated Resolved Time COVID19 Pending 09/30/2019 09/30/2019 10/01/2019 6 :52 PM CDT documented as of this encounter Care Teams Breaker Boss Relationship Specialty Start Date End Date Susi Lemus MPAS, P.A.-C. [address] [place] [address] PCP - General Internal Medicine 08/02/24 documented as of this encounter
--- OUTSIDE RECORDS SUMMARY | 2024-11-14 12:59 | XMS_ITS | Encounter Summary ---
Author Organization [facility] Address [address] [place] [address] Care Team Providers Care University Archivist Name Role Phone Susi Lemus P.A.-C. Primary Care Pro vider Encounter Details Date Type Department Care Team (Late st Contact Info) Description 09/06/2010 Historical Ophthalmology RST OPH Denver Murphy M.D. [address] [place] [address] Social History Tobacco Use Types Packs/Day Years Used Date Smoking Tobacco: Never Assessed Comments Unknown Sex and Gender Information Value Date Recorded Sex Assigned at Female 03/22/2023 10:14 PM FINANCIAL OPERATIONS CLERK Legal Sex Female 5:31 AM FINANCIAL OPERATIONS CLERK Gender Identity Female 02/02/2018 11:17 AM FINANCIAL OPERATIONS CLERK Sexual Orientation Straight 02/02/2018 11 :17 AM FINANCIAL OPERATIONS CLERK documented as of this encounter Progress Notes * Denver Murphy M.D. - 09/06/2010 7:49 AM CDT Eye Postoperative MULTI-VISIT DOCUMENT This document contains multiple patient visits and is available for review in Document Viewer. CDM Reports - EYEPO Id: [id number] Status: Fnl documented in this encounter Plan of Treatment Upcoming Encounters Date Type Department Care Team (Late st Contact Info) Description 02/20/2025 12:30 PM FINANCIAL OPERATIONS CLERK Appointment Department of Laboratory Medicine in [place], [place] [address] [place] [address] Susi Lemus MPAS, P.A.-C. [address] [place] [address] 02/20/2025 1:30 PM FINANCIAL OPERATIONS CLERK Office Visit Department of Community Internal Medicine in [place], [place] [address] [place] [address] Susi Lemus MPAS, P.A.-C. [address] [place] [address] documented as of this encounter Visit Diagnoses Not on filedocumented in this encounter Additional Health Concerns Infection Onset Date Last Indicated Resolved Time COVID19 Pending 09/30/2019 09/30/2019 10/01/2019 6 :52 PM CDT Assessment Noted Time PHQ-9 Depression Total Score: 15 08/31/ 008 4:27 PM CDT documented as of this encounter Care Teams University Archivist Relationship Specialty Start Date End Date Susi Lemus MPAS, P.A.-C. [address] [place] [address] PCP - General Internal Medicine 08/02/24 documented as of this encounter
--- OUTSIDE RECORDS SUMMARY | 2024-11-14 12:59 | XMS_ITS | Encounter Summary ---
Author Organization [facility] Address [address] [place] [address] Care Team Providers Care Supervisor Partial Denture Department Name Role Phone Susi Lemus P.A.-C. Primary Care Pro vider Encounter Details Date Type Department Care Team (Late st Contact Info) Description 06/25/2010 Historical Ophthalmology RST OPH Yudi Chin Social History Tobacco Use Types Packs/Day Years Used Date Smoking Tobacco: Never Assessed Comments Unknown Sex and Gender Information Value Date Recorded Sex Assigned at Female 03/22/2023 10:14 PM DEPARTMENT SECRETARY Legal Sex Female 5:31 AM DEPARTMENT SECRETARY Gender Identity Female 02/02/2018 11:17 AM DEPARTMENT SECRETARY Sexual Orientation Straight 02/02/2018 11 :17 AM DEPARTMENT SECRETARY documented as of this encounter Progress Notes * Yudi Chin - 06/25/2010 3:22 PM CDT Eye Subsequent Visit HISTORY OF PRESENT ILLNESS Ptosis visual field completed. Returning to Dr. Murphy 06-28-10. CDM Reports - EYESV Id: [id number] Status: Fnl documented in this encounter Plan of Treatment Upcoming Encounters Date Type Department Care Team (Late st Contact Info) Description 02/20/2025 12:30 PM DEPARTMENT SECRETARY Appointment Department of Laboratory Medicine in [place] [address] [place] [phone] Susi Lemus MPAS, P.A.-C. [address] [facility] [place] [place] [address] 02/20/2025 1:30 PM DEPARTMENT SECRETARY Office Visit Department of Community Internal Medicine in [place], [place] [address] [facility] [address] Susi Lemus MPAS, P.A.-C. [address] [place] [address] documented as of this encounter Visit Diagnoses Not on filedocumented in this encounter Additional Health Concerns Infection Onset Date Last Indicated Resolved Time COVID19 Pending 09/30/2019 09/30/2019 10/01/2019 6 :52 PM CDT Assessment Noted Time PHQ-9 Depression Total Score: 15 08/31/ 008 4:27 PM CDT documented as of this encounter Care Teams Supervisor Partial Denture Department Relationship Specialty Start Date End Date Susi Lemus MPAS, PChetnaA.-C. [address] [place] [place] [address] PCP - General Internal Medicine 08/02/24 documented as of this encounter
--- OUTSIDE RECORDS SUMMARY | 2024-11-14 13:01 | XMS_ITS | Clinical Summary ---
Author Organization [facility] Address [address] [place] [address] Care Team Providers Care Putty Glazer Name Role Phone DeaconKalyan moseley Mello MARTIN Unavailable [phone] Manish Zhu MD Primary Care Provi james Magdalena Pelayo RN Unavailable [phone] Allergies Active Allergy Reactions Criticality Noted Date Comments Nsaids (Non-Steroidal Anti-Inflammatory Drug) Renal Failure Medium 02/20/2003 Elevated creatinine due to only having one kidney Medications wheelchairIndicati ons:Right hemiparesis (HC),Arterial ischemic stroke, MCA (middle cerebral artery), left, acute (HC),Impaired functional mobility, balance, gait, and endurance,Impaired mobility and ADLs Wheelchair: Standard with leg rests: (Swing away Length of need: 99 months 1 Each 03/05/20 Active hospital bedIndications:Rig ht hemiparesis (HC),Arterial ischemic stroke, MCA (middle cerebral artery), left, acute (HC),Impaired functional mobility, balance, gait, and endurance,Impaired mobility and ADLs Hospital bed with group 1 mattress and 1/2 rails. Semi-electric bed. Length of need 99 months. Bed pododermatologist:no 1 Each 03/05/20 Active oxygen-air delivery systems (HOME OXYGEN)Indications :Nocturnal hypoxia Oxygen for home use. Liters per minute: 2 per nasal cannula. Frequency of use: Nocturnal;. Length of need: 99 Months. 1 Each 03/12/19 24 Active acetaminophen (Tylenol Extra Strength) 500 mg tabletIndications: Arterial ischemic stroke, MCA (middle cerebral artery), left, acute (HC) Take 2 Tablets (1,000 mg) by mouth every 6 hours if needed for Headache or Pain. Max acetaminophen dose: 4000mg in 24 hrs. 100 Tablet 03/12/19 24 Active apixaban (ELIQUIS) 5 mg tabletIndications: prevent thromboembolism in chronic atrial fibrillation Take 1 Tablet (5 mg) by mouth two times daily. 60 Tablet 03/12/19 24 Active atorvastatin (LIPITOR) 80 mg tabletIndications: Arterial ischemic stroke, MCA (middle cerebral artery), left, acute (HC),Hyperlipidemi a, unspecified hyperlipidemia type Take 1 Tablet (80 mg) by mouth at bedtime. 30 Tablet 03/12/19 24 Active baclofen (LIORESAL) 5 mg tab tabletIndications: Arterial ischemic stroke, MCA (middle cerebral artery), left, acute (HC),Right spastic hemiparesis (HC) Take 1 tablet (5 mg) by mouth daily in the morning and 2 tablets (10 mg) in the evening. Take 1 tablet (5 mg) overnight as needed for spasms. 90 Tablet 03/12/19 24 Active DULoxetine (CYMBALTA) 60 mg Delayed-release capsuleIndications :Mixed anxiety depressive disorder Take 2 Capsules (120 mg) by mouth once daily. 60 Capsule 03/12/19 24 Active gabapentin (NEURONTIN) 100 mg capsuleIndications :Mixed anxiety depressive disorder Take 1 Capsule (100 mg) by mouth at bedtime. 30 Capsule 03/12/19 24 Active lidocaine HCL (Aspercreme, lidocaine HCL,) 4 % topical creamIndications:C hronic pain syndrome Apply topically to intact skin 4 times daily for neuropathic or musculoskeletal pain. Do not place over incision, wound, or rash area. 113 g 03/12/19 24 Active miconazole nitrate powder 2 % powderIndications: Arterial ischemic stroke, MCA (middle cerebral artery), left, acute (HC) Apply topically to affect skin under bilateral breasts (especially right breast) twice daily until resolved. Do not place over incision, wound, or skin rash area. 85 g 03/12/19 24 Active mirtazapine (REMERON) 7.5 mg tabletIndications: Insomnia, unspecified type Take 1 Tablet (7.5 mg) by mouth at bedtime. 30 Tablet 03/12/19 24 Active sennosides (SENNA) 8.6 mg tabletIndications: Constipation, unspecified constipation type Take 2 Tablets (17.2 mg) by mouth once daily. 100 Tablet 03/12/19 24 Active Active Problems Problem Noted Date Diagnosed Date CKD (chronic kidney disease) stage 3, GFR 30-59 ml/min 12/06/2022 Atrial fibrillation 12/06/2022 Arterial ischemic stroke, MC A (middle cerebral artery), left, acute 12/03/2022 Solitary kidney, congenital 12/02/2022 Body mass index (BMI) 40.0-44.9, adult 0 Chronic pain syndrome 08/21/2013 Mixed anxiety depressive disorder 08/13/2007 Hyperlipidemia 02/23/2006 Immunizations Immunization Administration Dates Next Due Hepatitis A (Adult) 12/27/1997,07/05/1997 Hepatitis B (Adult) 04/09/1992,11/15/1991,1991 Influenza Virus, Unspecified 12/22/2014( Deferred: Patient Refused),12/25/1998 Influenza, High-dose Inactivated 03/14/2019 Influenza, IIV3 (Age 6-35 mos) 01/22/2013,2011,01/29/2011 Influenza, IIV3 (Age >=3 years) 02/24/2006,12/27 Influenza, IIV4 12/09/2016,01/02/2015 Influenza, split (incl. michelle fied surface antigen) 12/27/1997 Pneumococcal Poly,23-Valent (Pneumovax) 06/18/2021,07/05/1997 Pneumococcal conj 13-Valent (Prevnar 13) 10/11/2018 Polio (Oral Polio Vaccine,Unspecified) 03/09/1961 TD, UNSPECIFIED 10/09/1993 Td (Age >=7 Years) 10/09/1993 Td, Preservative Free (age > = 7 Years) 01/01/2017 Tdap 02/24/2006 Zoster (Shingrix-RZV, recombinant) 03/14/2019 Zoster (Zostavax-ZVL, live) 01/02/2015 Zoster, Unspecified Formulation 12/22/2014(Defer red: Patient Refused) Social History Tobacco Use Types Packs/Day Years Used Date Smoking Tobacco: Never Smokeless Tobacco: Never Tobacco Cessation:Counseling Given: Not Answered Alcohol Use Standard Drinks/Week Comments Not Currently 1 (1 standard drink = 0.6 oz pur e alcohol) used to drink occasionally Social Connections Answer Date Recorded Frequency of Communication with Friends and Fami ly 0 12/12/2022 Financial Resource Strain Answer Date R ecorded Difficulty of Paying Living Expenses 3 12/12/2022 Difficulty of Paying Living Expenses Not on file 12/12/2022 Food Insecurity Answer Date Recorded Worried About Running Out of Food in the Last Ye ar 1 12/12/2022 Transportation Needs Answer Date Record ed Lack of Transportation (Medical) 1 12/12/2022 Housing Stability Answer Date Recorded Unable to Pay for Housing in the Last Year 1 12/12/2022 Interpersonal Safety Answer Date Record ed Are you being hit, kicked, p ushed or yelled at (see row info)? No 03/12/2023 Interpersonal Safety Abuse 12 - 18 Not on file 03/12/2023 Interpersonal Safety Ambulatory Vulnerability No t on file 03/12/2023 Comments No Sex and Gender Information Value Date Recorded Sex Assigned at Not on file Legal Sex Female 6:12 AM RECORDS ADMINISTRATOR Gender Identity Not on file Sexual Orientation Not on file Obstetrics History Last Filed Vital Signs Vital Sign Reading Time Taken Comments Blood Pressure 118/70 05/13/2023 3:23 PM RECORDS ADMINISTRATOR Pulse 67 05/13/2023 3:23 PM RECORDS ADMINISTRATOR Temperature 36.7 C (98 F) 05/13/2023 3:23 PM RECORDS ADMINISTRATOR Respiratory Rate 18 05/13/2023 3:23 PM RECORDS ADMINISTRATOR Oxygen Saturation 96% 05/13/2023 3:23 PM RECORDS ADMINISTRATOR Inhaled Oxygen Concentration - - Weight 90.4 kg (199 lb 6.4 oz) 03/12/2023 5:34 A M RECORDS ADMINISTRATOR Height 154.9 cm (5' 1) 03/12/2023 5:34 AM RECORDS ADMINISTRATOR Body Mass Index 37.68 03/12/2023 5:34 AM RECORDS ADMINISTRATOR Plan of Treatment Health Maintenance Due Date Last Done Comments Depression screening for age 12+ 1964 BMI (ht and wt on same day) for age 18+ 1970 Hepatitis C screening for ag e 18-79 1970 Colonoscopy through age 75 1997 Mammogram for age 45-75 1997 RSV vaccine for adults or (1 - Risk 60-74 years 1-dose series) 2012 DEXA/DXA scan for age 65+ 2017 Medicare Wellness for age 65+ 2017 Zoster (shingles) series for age 50+ (3 of 3) 05/09/2019 03/14/2019, 01/02/2015 COVID-19 vaccine series ( - season) 2024 06/18/2021, 06/19/2020, 05/18/2020 Influenza Vaccine (#1) 2024 0, 12/09/2016, 01/02/2015, Additional history exists Tetanus booster 01/01/2027 01/01/2017, 02/06, 10/09/1993, Additional history exists Lipids for age 45-75 12/04/2027 12/03/2022 Hepatitis B series for 19+ Completed 04/09, 11/15/1991, 10/13/1991 Pneumococcal series for age 50+ Completed 06/18/2021, 10/11/2018, 07/05/1997 Procedures Procedure Name Priority Date/Time Associated Diagnosis Comments LIPID PANEL Early AM 12/03/2022 5:12 AM CDT from Last 3 Months or Most Recently Relevant to Health Maintenance Results * (ABNORMAL) Lipid Panel (12/03/2022 5:12 AM CDT) CHOLESTEROL,TOTAL 234(H) 100 - 199 mg/dL 12/03/2022 6:15 AM CDT [facility] Comment: Cholesterol, Total Reference Ranges Desirable <200 mg/dL Borderline 200-239 mg/dL High >=240 mg/dL TRIGLYCERIDES 119 <150 mg/dL 12/03/2022 6:15 AM CDT [email or web address] HDL CHOLESTEROL 54 >40 mg/dL 6:15 AM CDT [facility] NON-HDL CHOLESTEROL 180(H) <145 mg/dl 12/03/2022 6:15 AM CDT [facility] CHOL/HDL RATIO 4.33 <4.50 12/03/2022 6:15 AM CDT [facility] LDL CHOLESTEROL 156(H) <=130 mg/dL 12/03/2022 6:15 AM CDT [facility] VLDL CHOLESTEROL 24 <=30 mg/dL 12/03/2022 6:15 AM CDT [facility] PROVIDER ORDERED STATUS RANDOM 12/03/2022 6:15 AM CDT [facility] Blood BLOOD SPECIMEN / Unknown IV Start / Unknown 12/03/2022 5:12 AM CDT 12/03/2022 5:27 AM CDT us Ga James MD CHEMISTRY Final R esult [facility] [address] [place] [address], from Last 3 Months or Most Recently Relevant to Health Maintenance Insurance MEDICARE PART A HB ONLY [employer] PL[employer] MEDICARE PB ONLY MEDICARE PART B HB ONLY MEDICARE PPS [facility] INTERMEDIATE [employer] Advance Directives Documents on File Type Date Recorded Patient Bus Driver Supervisor Expl arti TOBAR 04/01/2023 * DNR (Latest Code Status on File) Date Activated Date Inactivated Comments 12/11/2022 2:16 PM 01/05/2023 12:23 PM Question Answer Comments Code Status Discussion: Reviewed Preferences * DNR Date Activated Date Inactivated Comments 12/06/2022 3:11 PM 12/11/2022 2:10 PM Patient has given thought to her code status and wishes to be DNR. She is a former RN and understands the implications Question Answer Comments Code Status Discussion: Reviewed Preferences * Full Code Date Activated Date Inactivated Comments 12/05/2022 11:19 AM 12/06/2022 3:11 PM Question Answer Comments Code Status Discussion: Reviewed Preferences * Full Code Date Activated Date Inactivated Comments 12/03/2022 1:18 AM 12/05/2022 11:19 AM Question Answer Comments Code Status Discussion: Unable to Assess Preferences, Provider to review later Care Teams Putty Glazer Relationship Specialty Start Date End Date Manish Zhu MD [address] [place] [address] PCP - General 02/04/23 Kalyan Worthy NP [facility] [place] [id number] [place] [address] Nurse Practitioner - Adult 01/07/23 Magdalena Pelayo RN [address] [phone] Stroke Rehab Care Coordination - [facility] Registered Nurse 03/17/23
[2024-11-14 13:09] VITALS: BP 138/83; PULSE 73; RESP 18; TEMP 37.1; O2SAT 92
== END 2024-11-14 13:20 | disposition home or self-care (01) ==
LOC: ED 12:56
PROVIDERS: Emergency Provider Emergency Medicine Emergency Medical Services
DX: R05.9 Cough, unspecified (principal); Z71.1 Person with feared health complaint in whom no diagnosis is made; Z79.01 Long term (current) use of anticoagulants; Z91.199 Patient's noncompliance with other medical treatment and regimen due to unspecified reason
CPT/HCPCS: 94761; 99283; 99284

== ENCOUNTER 2024-11-24 14:41 | Outpatient (CLI) | payer MEDICARE, SELFPAY | END 2024-11-24 14:42 | disposition home or self-care (01) | LOC: AMB 11-25 10:37 | PROVIDERS: Visit Provider Student in an Organized Health Care Education/Training Program | DX: R53.1 Weakness (principal) | CPT/HCPCS: A0998 ==

== ENCOUNTER 2024-11-24 15:28 | Emergency (ER) | payer MEDICARE, OTHER, SELFPAY ==
--- OUTSIDE RECORDS SUMMARY | 2024-11-24 15:31 | XMS_ITS | Encounter Summary ---
Author Organization [facility] Address [address] [place] [address] Care Team Providers Care Director [employer] Name Role Phone Susi Lemus, P.A.-C. Primary Care Pro vider Reason for Visit * Reason Onset Date Comments PandaDoc Form 10/19/2024 [facility] - SWO & LMN orthotics L1951, L3334 09/26 Encounter Details Date Type Department Care Team (Latest Contact Info) Description 10/19/2024 Clinical Communication Department of Community Internal Medicine in [place], [place] [address] [place] [phone] Susi Lemus MPAS, P.A.-C. [address] [place] [phone] PandaDoc Form ([facility] - SWO & LMN orthotics L1951, L3334 09/26 ) Social History Tobacco Use Types Packs/Day Years Used Date Smoking Tobacco: Never Passive Smoke Exposure: Past Smokeless Tobacco: Never Alcohol Use Standard Drinks/Week Comments Not Currently 0 (1 standard drink = 0.6 oz pur e alcohol) basicly nil [facility] Utilities Answer Date Recorded In [...] your living situation today? I have a [facility] to live 08/15/2024 Education Answer Date Recorded What is the highest level of school you have completed or the highest degree you have received? Associate degree: occupational, technical, or vocational program 12/09/2021 Comments No Sex and Gender Information Value Date Recorded Sex Assigned at Female 03/22/2023 10:14 PM TRAVELING CONSTRUCTION SUPERINTENDENT Legal Sex Female 5:31 AM TRAVELING CONSTRUCTION SUPERINTENDENT Gender Identity Female 02/02/2018 11:17 AM TRAVELING CONSTRUCTION SUPERINTENDENT Sexual Orientation Straight 02/02/2018 11 :17 AM TRAVELING CONSTRUCTION SUPERINTENDENT documented as of this encounter Miscellaneous Notes * Telephone Encounter - Nunu Benoit C.M.A. - 11/10/2024 3:30 PM CDT SUBJECTIVE CHIEF COMPLAINT / REASON FOR CALL PandaDoc Form ([facility] - SWO & LMN orthotics L1951, L3334 09/26 ) Information Discussed Called [facility] and informed Candace of information provided by [...] foot drop. Please addend and fax to: [phone] * Telephone Encounter - Ruth Payne - 11/02/2024 12:44 PM CDT Per message, edited to add: ORTHOSIS NEEDED FOR WEAKNESS AND FOOT DROP. * Telephone Encounter - Ruth Payne - 10/19/2024 4:02 PM CDT Received back completed form. Form faxed back to the listed facility. Scanned into [facility] * Telephone Encounter - Ruth Payne - 10/19/2024 10:40 AM CDT Form was routed to Venita Saldivar for electronic review/signature. SEC REPORTING CONSULTANT: [facility] PHONE NUMBER: [phone] INFO REQUESTED: SWO & LMN orthotics L1951, L3334 09/26 INSTRUCTIONS: Fax form to [phone] documented in this encounter Plan of Treatment Upcoming Encounters Date Type Department Care Team (Late st Contact Info) Description 01/06/2025 10:30 AM CDT Comprehensive Visit Department of Urology in [place], [place] [address] [place] [phone] Mala Toro APRN, C.N.P. [address] [place] [phone] 02/20/2025 12:30 PM TRAVELING CONSTRUCTION SUPERINTENDENT Appointment Department of Laboratory Medicine in [place], [place] [address] [place] [address] Susi Lemus MPAS, P.A.-C. [address] [place] [address] 02/20/2025 1:30 PM TRAVELING CONSTRUCTION SUPERINTENDENT Office Visit Department of Community Internal Medicine in [place], [place] [address] [place] [phone] Susi Lemus MPAS, P.A.-C. [address] [place] [address] documented as of this encounter Visit Diagnoses Not on filedocumented in this encounter Additional Health Concerns Assessment Noted Time PHQ-9 Depression Total Score: 7 08/16/19 12:54 PM CDT documented as of this encounter Care Teams Director [employer] Relationship Specialty Start Date End Date Susi Lemus MPAS, P.A.-C. [address] [place] [address] PCP - General Internal Medicine 08/02/24 documented as of this encounter
--- OUTSIDE RECORDS SUMMARY | 2024-11-24 15:31 | XMS_ITS | Encounter Summary ---
Author Organization [facility] Address [address] [place] [address] Care Team Providers Care Channel Opener Name Role Phone Susi Lemus P.A.-CChetna Primary Care Pro vider Reason for Visit * Reason Comments Med Refill Encounter Details Date Type Department Care Team (Late st Contact Info) Description 11/11/2024 Refill Department of Community Internal Medicine in [place], [place] [address] [place] [address] Susi Lemus MPAS, P.A.-CChetna [address] [place] [phone] Med Refill Social History Tobacco Use Types [...] your living situation today? I have a [facility] place to live 08/15/2024 Education Answer Date Recorded What is the highest level of school you have completed or the highest degree you have received? Associate degree: occupational, technical, or vocational program 12/09/2021 Comments No Sex and Gender Information Value Date Recorded Sex Assigned at Female 03/22/2023 10:14 PM CHIEF MEDICAL TECHNOLOGIST Legal Sex Female 5:31 AM CHIEF MEDICAL TECHNOLOGIST Gender Identity Female 02/02/2018 11:17 AM CHIEF MEDICAL TECHNOLOGIST Sexual Orientation Straight 02/02/2018 11 :17 AM CHIEF MEDICAL TECHNOLOGIST documented as of this encounter Plan of Treatment Upcoming Encounters Date Type Department Care Team (Late st Contact Info) Description 01/06/2025 10:30 AM CDT Comprehensive Visit Department of Urology in [place], [place] [address], [place] [address] Mala Toro, TIFFANY, C.N.P. [address], [place] [address] 02/20/2025 12:30 PM CHIEF MEDICAL TECHNOLOGIST Appointment Department of Laboratory Medicine in [place], [place] [address] [facility] [place] [address] Susi Lemus MPAS, P.AChetna-CChetna [address] [facility] Zhanna [facility] [address] 02/20/2025 1:30 PM CHIEF MEDICAL TECHNOLOGIST Office Visit Department of Community Internal Medicine in [place], [place] [address] [facility] [place] [address] Susi Lemus MPAS, ArturoA.-CChetna [address] [facility] [place] [phone] documented as of this encounter Visit Diagnoses Not on filedocumented in this encounter Additional Health Concerns Assessment Noted Time PHQ-9 Depression Total Score: 7 08/16/19 12:54 PM CDT documented as of this encounter Care Teams Channel Opener Relationship Specialty Start Date End Date Susi Lemus MPAS, P.A.-C. [address] [place] [address] [place] [phone] PCP - General Internal Medicine 08/02/24 documented as of this encounter
--- OUTSIDE RECORDS SUMMARY | 2024-11-24 15:31 | XMS_ITS | Encounter Summary ---
Author Organization [facility] Address [address] [place] [address] Care Team Providers Care Postdoctoral Research Fellow Name Role Phone Susi Lemus P.A.-C. Primary Care Pro vider Encounter Details Date Type Department Care Team (Late st Contact Info) Description 09/22/2007 Historical Ophthalmology [facility] Antonino Arias M.D. Social History Tobacco Use Types Packs/Day Years Used Date Smoking Tobacco: Never Assessed Comments Unknown Sex and Gender Information Value Date Recorded Sex Assigned at Female 03/22/2023 10:14 PM RETURNED GOODS INSPECTOR Legal Sex Female 5:31 AM RETURNED GOODS INSPECTOR Gender Identity Female 02/02/2018 11:17 AM RETURNED GOODS INSPECTOR Sexual Orientation Straight 02/02/2018 11 :17 AM RETURNED GOODS INSPECTOR documented as of this encounter Progress Notes [...] left eye. CDM Reports - EYEGEN Id: [id number] Status: Fnl documented in this encounter Plan of Treatment Upcoming Encounters Date Type Department Care Team (Late st Contact Info) Description 01/06/2025 10:30 AM CDT Comprehensive Visit Department of Urology in [place], [place] [address] [phone] Mala Toro APRN, C.N.P. [address] [phone] 02/20/2025 12:30 PM RETURNED GOODS INSPECTOR Appointment Department of Laboratory Medicine in [address] [phone] Susi Lemus MPAS, P.A.-C. [address] [place] [phone] 02/20/2025 1:30 PM RETURNED GOODS INSPECTOR Office Visit Department of Community Internal Medicine in [address] [phone] Susi Lemus MPAS, P.A.-C. [address] [place] [phone] documented as of this encounter Visit Diagnoses Not on filedocumented in this encounter Additional Health Concerns Infection Onset Date Last Indicated Resolved Time COVID19 Pending 09/30/2019 09/30/2019 10/01/2019 6 :52 PM CDT Assessment Noted Time PHQ-9 Depression Total Score: 15 008 4:27 PM CDT documented as of this encounter Care Teams Postdoctoral Research Fellow Relationship Specialty Start Date End Date Susi Lemus MPAS, P.A.-C. [address] [place] [address] [place] [phone] PCP - General Internal Medicine 08/02/24 documented as of this encounter
--- OUTSIDE RECORDS SUMMARY | 2024-11-24 15:31 | XMS_ITS | Encounter Summary ---
Author Organization [facility] Address [address] [place] [address] Care Team Providers Care Mixed Crop [employer] Livestock Farm Worker Name Role Phone Susi Lemus P.A.-C. Primary Care Pro vider Encounter Details Date Type Department Care Team (Late st Contact Info) Description 12/25/2014 Historical Ophthalmology [facility] Jair Emerson O.D. [address] [place] [address] Social History Tobacco Use Types Packs/Day Years Used Date Smoking Tobacco: Never Assessed Comments Unknown Sex and Gender Information Value Date Recorded Sex Assigned at Female 03/22/2023 10:14 PM SHANKER OUT Legal Sex Female 5:31 AM SHANKER OUT Gender Identity Female 02/02/2018 11:17 AM SHANKER OUT Sexual Orientation Straight 02/02/2018 11 :17 AM SHANKER OUT documented as of this encounter Progress Notes [...] Cataracts both CDM Reports - EYEGEN Id: [id number] Status: Fnl documented in this encounter Plan of Treatment Upcoming Encounters Date Type Department Care Team (Late st Contact Info) Description 01/06/2025 10:30 AM CDT Comprehensive Visit Department of Urology in [place], [place] [address] [phone] Mala Toro APRN, C.N.P. [address] [phone] 02/20/2025 12:30 PM SHANKER OUT Appointment Department of Laboratory Medicine in [address] [phone] Susi Lemus MPAS, P.A.-C. [address] [place] [phone] 02/20/2025 1:30 PM SHANKER OUT Office Visit Department of Community Internal Medicine in [address] [phone] Susi Lemus MPAS, P.A.-C. [address] [place] [phone] documented as of this encounter Visit Diagnoses Not on filedocumented in this encounter Additional Health Concerns Infection Onset Date Last Indicated Resolved Time COVID19 Pending 09/30/2019 09/30/2019 10/01/2019 6 :52 PM CDT Assessment Noted Time PHQ-9 Depression Total Score: 4 07/18/19 15 9:01 AM CDT documented as of this encounter Care Teams Mixed Crop And Livestock Farm Worker Relationship Specialty Start Date End Date Susi Lemus MPAS, P.A.-C. [address] [place] [phone] PCP - General Internal Medicine 08/02/24 documented as of this encounter
--- OUTSIDE RECORDS SUMMARY | 2024-11-24 15:31 | XMS_ITS | Encounter Summary ---
Author Organization [facility] Address [address] [place] [address] Care Team Providers Care Ice Cream Mixer Name Role Phone Susi Leums, P.A.-C. Primary Care Pro vider Reason for Visit * Reason Onset Date Comments PandaDoc Form 10/10/2024 [facility] - Initial Eval 09/22/24 Encounter Details Date Type Department Care Team (Latest Contact Info) Description 10/10/2024 Clinical Communication Department of Community Internal Medicine in [place], [place] [address] [place] [phone] Susi Lemus MPAS, P.A.-C. 300 [place] [address] PandaDoc Form ([facility] - Initial Eval 09/22/24) Social History Tobacco Use Types Packs/Day Years Used Date Smoking Tobacco: Never Passive Smoke Exposure: Past Smokeless Tobacco: Never Alcohol Use Standard Drinks/Week Comments Not Currently 0 (1 standard drink = 0.6 oz pur e alcohol) basicly nil [facility] Utilities Answer Date Recorded In the past 12 months has e electric, gas, oil, or water [employer] threatened to shut off services in your [...] your living situation today? I have a [facility] place to live 08/15/2024 Education Answer Date Recorded What is the highest level of school you have completed or the highest degree you have received? Associate degree: occupational, technical, or vocational program 12/09/2021 Comments No Sex and Gender Information Value Date Recorded Sex Assigned at Female 03/22/2023 10:14 PM PLUMBING ASSEMBLER INSTALLER Legal Sex Female 5:31 AM PLUMBING ASSEMBLER INSTALLER Gender Identity Female 02/02/2018 11:17 AM PLUMBING ASSEMBLER INSTALLER Sexual Orientation Straight 02/02/2018 11 :17 AM PLUMBING ASSEMBLER INSTALLER documented as of this encounter Miscellaneous Notes * Telephone Encounter - Rula Wagner - 10/11/2024 7:13 AM CDT Form completed and faxed to listed facility. Copy sent to scanning. * Telephone Encounter - Zayda Harris - 10/10/2024 4:59 PM CDT Form emailed to Susi Lemus for review/signature MANAGER INPATIENT: Ana HUTCHINSON PHONE NUMBER: INFO REQUESTED: Initial Eval 09/22/24 INSTRUCTIONS: Fax back to [phone] documented in this encounter Plan of Treatment Upcoming Encounters Date Type Department Care Team (Late st Contact Info) Description 01/06/2025 10:30 AM CDT Comprehensive Visit Department of Urology in [place], [place] [address] [address] Mala Toro APRN, C.N.P. [address] [address] 02/20/2025 12:30 PM PLUMBING ASSEMBLER INSTALLER Appointment Department of Laboratory Medicine in [address] [phone] Susi Lemus MPAS, P.A.-C. [address] [place] [address] 02/20/2025 1:30 PM PLUMBING ASSEMBLER INSTALLER Office Visit Department of Community Internal Medicine in [place], [place] [address] [place] [phone] Susi Lemus MPAS, P.A.-C. [address] [place] [phone] documented as of this encounter Visit Diagnoses Not on filedocumented in this encounter Additional Health Concerns Assessment Noted Time PHQ-9 Depression Total Score: 7 08/16/19 25 12:54 PM CDT documented as of this encounter Care Teams Ice Cream Mixer Relationship Specialty Start Date End Date Susi Lemus MPAS, P.A.-C. [address] [place] [address] Zhanna [place], JONATHON [address] PCP - General Internal Medicine 08/02/24 documented as of this encounter
--- OUTSIDE RECORDS SUMMARY | 2024-11-24 15:31 | XMS_ITS | Encounter Summary ---
Author Organization [facility] Address [address] [place] [address] Care Team Providers Care Ammunition Specialist Name Role Phone Susi Lemus P.A.-C. Primary Care Pro vider Encounter Details Date Type Department Care Team (Late st Contact Info) Description 11/08/2010 Historical Ophthalmology RST OPH Denver Murphy M.D. [address] [place] [address] Social History Tobacco Use Types Packs/Day Years Used Date Smoking Tobacco: Never Assessed Comments Unknown Sex and Gender Information Value Date Recorded Sex Assigned at Female 03/22/2023 10:14 PM NATURAL RESOURCES MANAGER Legal Sex Female 5:31 AM NATURAL RESOURCES MANAGER Gender Identity Female 02/02/2018 11:17 AM NATURAL RESOURCES MANAGER Sexual Orientation Straight 02/02/2018 11 :17 AM NATURAL RESOURCES MANAGER documented as of this encounter Progress Notes * Denver Murphy M.D. - 11/08/2010 11:33 AM CDT Eye Postoperative MULTI-VISIT DOCUMENT This document contains multiple patient visits and is available for review in Document Viewer. CDM Reports - EYEPO Id: [id number] Status: Fnl documented in this encounter Plan of Treatment Upcoming Encounters Date Type Department Care Team (Late st Contact Info) Description 01/06/2025 10:30 AM CDT Comprehensive Visit Department of Urology in [place], [place] [address] [facility] [place] [address] Mala Toro APRN, C.N.P. [address] [facility] [phone] 02/20/2025 12:30 PM NATURAL RESOURCES MANAGER Appointment Department of Laboratory Medicine in [place], [place] 300 [facility] [place] [phone] Susi Lemus MPAS, P.A.-C. 300 [facility] [place] [phone] 02/20/2025 1:30 PM NATURAL RESOURCES MANAGER Office Visit Department of Community Internal Medicine in [place], [place] [address] [facility] [place] [phone] Susi Lemus MPAS, P.A.-C. 300 [facility] [address] documented as of this encounter Visit Diagnoses Not on filedocumented in this encounter Additional Health Concerns Infection Onset Date Last Indicated Resolved Time COVID19 Pending 09/30/2019 09/30/2019 10/01/2019 6 :52 PM CDT Assessment Noted Time PHQ-9 Depression Total Score: 15 008 4:27 PM CDT documented as of this encounter Care Teams Ammunition Specialist Relationship Specialty Start Date End Date Susi Lemus MPAS, P.A.-C. [address] [facility] [place] [phone] PCP - General Internal Medicine 08/02/24 documented as of this encounter
--- OUTSIDE RECORDS SUMMARY | 2024-11-24 15:31 | XMS_ITS | Clinical Summary ---
Author Organization [facility] Address [address] [place] [address] Care Team Providers Care Beef Boner Name Role Phone [place] HarborKalyan moseley Mello MARTIN Unavailable [phone] Manish Zhu MD Primary Care Provi james Magdalena Pelayo RN Unavailable [phone] Allergies Active Allergy Reactions Criticality Noted [...] bed. Length of need 99 months. Bed crossbar switch adjuster:no 1 Each 03/05/20 Active oxygen-air delivery systems [...] on file Legal Sex Female 6:12 AM GLUCOSE AND SYRUP WEIGHER Gender Identity Not on file Sexual Orientation Not on file Obstetrics History Last Filed Vital Signs Vital Sign Reading Time Taken Comments Blood Pressure 118/70 05/13/2023 3:23 PM GLUCOSE AND SYRUP WEIGHER Pulse 67 05/13/2023 3:23 PM GLUCOSE AND SYRUP WEIGHER Temperature 36.7 C (98 F) 05/13/2023 3:23 PM GLUCOSE AND SYRUP WEIGHER Respiratory Rate 18 05/13/2023 3:23 PM GLUCOSE AND SYRUP WEIGHER Oxygen Saturation 96% 05/13/2023 3:23 PM GLUCOSE AND SYRUP WEIGHER Inhaled Oxygen Concentration - - Weight 90.4 kg (199 lb 6.4 oz) 03/12/2023 5:34 A M GLUCOSE AND SYRUP WEIGHER Height 154.9 cm (5' 1) 03/12/2023 5:34 AM GLUCOSE AND SYRUP WEIGHER Body Mass Index 37.68 03/12/2023 5:34 AM GLUCOSE AND SYRUP WEIGHER Plan of Treatment Health Maintenance Due Date [...] mg/dL 12/03/2022 6:15 AM CDT [facility] Comment: Cholesterol, Total Reference Ranges Desirable <200 mg/dL Borderline 200-239 mg/dL High >=240 mg/dL TRIGLYCERIDES 119 <150 mg/dL 12/03/2022 6:15 AM CDT [facility] HDL CHOLESTEROL 54 >40 mg/dL 6:15 AM CDT [facility] TR[facility] NON-HDL CHOLESTEROL 180(H) <145 mg/dl 12/03/2022 6:15 AM CDT [facility] CHOL/HDL RATIO 4.33 <4.50 12/03/2022 6:15 AM CDT [facility] LDL CHOLESTEROL 156(H) <=130 mg/dL 12/03/2022 6:15 AM CDT [facility] VLDL CHOLESTEROL 24 <=30 mg/dL 12/03/2022 6:15 AM CDT [facility] PROVIDER ORDERED STATUS RANDOM 12/03/2022 6:15 AM CDT [facility] TRA [facility] Blood BLOOD SPECIMEN / Unknown IV Start / Unknown 12/03/2022 5:12 AM CDT 12/03/2022 5:27 AM CDT us Ga James MD CHEMISTRY Final R esult [facility] [address] [place] [address], from Last 3 Months or Most Recently Relevant to Health Maintenance Insurance MEDICARE PART A HB ONLY [employer] MEDICARE PB ONLY MEDICARE PART B HB ONLY MEDICARE PPS [facility] FDC [email or web address] Advance Directives Documents on File Type Date Recorded Patient Tattoo And Body Artist Expl arti TOBAR 04/01/2023 * DNR (Latest [...] Preferences, Provider to review later Care Teams Beef Boner Relationship Specialty Start Date End Date Manish Zhu MD [address] [place] [address] PCP - General 02/04/23 Kalyan Worthy NP [facility] [place] [id number] [place] [address] Nurse Practitioner - Adult 01/07/23 Magdalena Pelayo RN [address] [phone] Stroke Rehab Care Coordination - [facility] Registered Nurse 03/17/23
--- OUTSIDE RECORDS SUMMARY | 2024-11-24 15:31 | XMS_ITS | Encounter Summary ---
Author Organization [facility] Address [address] [place] [address] Care Team Providers Care Manager Editorial Name Role Phone Susi Lemus P.A.-C. Primary Care Pro vider Encounter Details Date Type Department Care Team (Late st Contact Info) Description 06/25/2005 Historical Ophthalmology RST OPH Mello Paz O.D., Ph.D. Social History Tobacco Use Types Packs/Day Years Used Date Smoking Tobacco: Never Assessed Comments Unknown Sex and Gender Information Value Date Recorded Sex Assigned at Female 03/22/2023 10:14 PM ADAPTED PHYSICAL EDUCATION SPECIALIST Legal Sex Female 5:31 AM ADAPTED PHYSICAL EDUCATION SPECIALIST Gender Identity Female 02/02/2018 11:17 AM ADAPTED PHYSICAL EDUCATION SPECIALIST Sexual Orientation Straight 02/02/2018 11 :17 AM ADAPTED PHYSICAL EDUCATION SPECIALIST documented as of this encounter Progress Notes [...] presbyopia, anisometropia). CDM Reports - EYESV Id: [id number] Status: Fnl documented in this encounter Plan of Treatment Upcoming Encounters Date Type Department Care Team (Late st Contact Info) Description 01/06/2025 10:30 AM CDT Comprehensive Visit Department of Urology in [place], [place] [address] [place] [address] Mala Toro APRN, C.N.P. [address] [place] [phone] 02/20/2025 12:30 PM ADAPTED PHYSICAL EDUCATION SPECIALIST Appointment Department of Laboratory Medicine in [place], [place] 300 [place] [address] Susi Lemus MPAS, P.A.-C. [address] [place] [phone] 02/20/2025 1:30 PM ADAPTED PHYSICAL EDUCATION SPECIALIST Office Visit Department of Community Internal Medicine in [place], [place] [address] [place] [phone] Susi Lemus MPAS, P.A.-C. [address] [place] [phone] documented as of this encounter Visit Diagnoses Not on filedocumented in this encounter Additional Health Concerns Infection Onset Date Last Indicated Resolved Time COVID19 Pending 09/30/2019 09/30/2019 10/01/2019 6 :52 PM CDT documented as of this encounter Care Teams Manager Editorial Relationship Specialty Start Date End Date Susi Lemus MPAS, P.A.-C. [address] [place] [address] (work) PCP - General Internal Medicine 08/02/24 documented as of this encounter
--- OUTSIDE RECORDS SUMMARY | 2024-11-24 15:31 | XMS_ITS | Encounter Summary ---
Author Organization [facility] Address [address] [place] [address] Care Team Providers Care Second Hand Paper Machine Name Role Phone Susi Lemus P.A.-C. Primary Care Pro vider Encounter Details Date Type Department Care Team (Late st Contact Info) Description 06/28/2010 Historical Ophthalmology RST OPH Denver Murphy M.D. [address] [place] [address] Social History Tobacco Use Types Packs/Day Years Used Date Smoking Tobacco: Never Assessed Comments Unknown Sex and Gender Information Value Date Recorded Sex Assigned at Female 03/22/2023 10:14 PM MASTER ELECTRICIAN Legal Sex Female 5:31 AM MASTER ELECTRICIAN Gender Identity Female 02/02/2018 11:17 AM MASTER ELECTRICIAN Sexual Orientation Straight 02/02/2018 11 :17 AM MASTER ELECTRICIAN documented as of this encounter Progress Notes [...] of insurance coverage reviewed; will submit to [facility] for preauthorization. Patient asked to avoid aspirin, NSAIDs, and other anticoagulants for 10 days preoperatively if medically safe to do so. DIAGNOSIS #1 Ptosis, left upper eyelid #2 Dermatochalasis, both upper eyelids #3 Mild left brow ptosis CDM Reports - EYEGEN Id: [id number] Status: Fnl documented in this encounter Plan of Treatment Upcoming Encounters Date Type Department Care Team (Late st Contact Info) Description 01/06/2025 10:30 AM CDT Comprehensive Visit Department of Urology in [place], [place] [address] [phone] Mala Toro, TIFFANY, C.N.P. [address] [phone] 02/20/2025 12:30 PM MASTER ELECTRICIAN Appointment Department of Laboratory Medicine in [address] [address] Susi Lemus MPAS, P.A.-C. [address] [place] [address] 02/20/2025 1:30 PM MASTER ELECTRICIAN Office Visit Department of Community Internal Medicine in [address] [address] Susi Lemus MPAS, P.A.-C. [address] [place] [address] documented as of this encounter Visit Diagnoses Not on filedocumented in this encounter Additional Health Concerns Infection Onset Date Last Indicated Resolved Time COVID19 Pending 09/30/2019 09/30/2019 10/01/2019 6 :52 PM CDT Assessment Noted Time PHQ-9 Depression Total Score: 15 008 4:27 PM CDT documented as of this encounter Care Teams Second Hand Paper Machine Relationship Specialty Start Date End Date Susi Lemus MPAS, P.A.-C. [address] [place] [phone] PCP - General Internal Medicine 08/02/24 documented as of this encounter
--- OUTSIDE RECORDS SUMMARY | 2024-11-24 15:31 | XMS_ITS | Encounter Summary ---
Author Organization [facility] Address [address] [place] [address] Care Team Providers Care Kennel Hand Name Role Phone Susi Lemus P.A.-C. Primary Care Pro vider Encounter Details Date Type Department Care Team (Late st Contact Info) Description 06/19/2010 Historical Ophthalmology RST OPH Racheal Gunderson O.D. Social History Tobacco Use Types Packs/Day Years Used Date Smoking Tobacco: Never Assessed Comments Unknown Sex and Gender Information Value Date Recorded Sex Assigned at Female 03/22/2023 10:14 PM BDR Legal Sex Female 5:31 AM BDR Gender Identity Female 02/02/2018 11:17 AM BDR Sexual Orientation Straight 02/02/2018 11 :17 AM BDR documented as of this encounter Progress Notes [...] to oculoplastics. CDM Reports - EYEGEN Id: [id number] Status: Fnl documented in this encounter Plan of Treatment Upcoming Encounters Date Type Department Care Team (Late st Contact Info) Description 01/06/2025 10:30 AM CDT Comprehensive Visit Department of Urology in [place], [place] [address] [facility] [place] [address] Mala Toro APRN, C.N.P. [address] [phone] 02/20/2025 12:30 PM BDR Appointment Department of Laboratory Medicine in [address] [phone] Susi Lemus MPAS, P.A.-C. [address] [place] [phone] 02/20/2025 1:30 PM BDR Office Visit Department of Community Internal Medicine in [place], [place] 300 [place] [phone] Susi Lemus MPAS, P.A.-C. [address] [place] [phone] documented as of this encounter Visit Diagnoses Not on filedocumented in this encounter Additional Health Concerns Infection Onset Date Last Indicated Resolved Time COVID19 Pending 09/30/2019 09/30/2019 10/01/2019 6 :52 PM CDT Assessment Noted Time PHQ-9 Depression Total Score: 15 08/31/ 008 4:27 PM CDT documented as of this encounter Care Teams Kennel Hand Relationship Specialty Start Date End Date Susi Lemus MPAS, P.A.-C. 300 [facility] [place] [phone] PCP - General Internal Medicine 08/02/24 documented as of this encounter
--- OUTSIDE RECORDS SUMMARY | 2024-11-24 15:31 | XMS_ITS | Encounter Summary ---
Author Organization [facility] Address [address] [place] [address] Care Team Providers Care Leaf Blender Name Role Phone Susi Crawford P.A.-C. Primary Care Pro vider Reason for Referral * Outpatient (Routine) - Authorized Specialty Diagnoses / Procedures Referred By Quinton johnson Referred To Contact Diagnoses Pain Shoulder Left Pain Shoulder Right Susi Crawford MPAS, P.A.-C. [address] [place] [address] Phone: tel: fax: Referral ID Status Reason Start Date Expiration Date Visits Requested Visits Authorized [id number] Authorized Service not available at any [facility] site 11/15/2024 05/17/2026 1 1 Reason for Visit * Reason Onset Date Comments Results 10/10/2024 10/11/24 patient w ill call us back with the response Encounter Details Date Type Department Care Team (Late st Contact Info) Description 10/10/2024 Results Follow-Up Department of Community Internal Medicine in [place], [place] 300 [place] [address] Susi Crawford MPAS, P.A.-C. [address] [place] [address] DX Shoulder Bilateral 2+ Views Social History Tobacco Use Types Packs/Day Years Used Date Smoking Tobacco: Never Passive Smoke Exposure: Past Smokeless Tobacco: Never Alcohol Use Standard Drinks/Week Comments Not Currently 0 (1 standard drink = 0.6 oz pur e alcohol) basicly nil [facility] Utilities Answer Date Recorded In the past [...] living situation today? I have a [facility] place to live 08/15/2024 Education Answer Date Recorded What is the highest level of school you have completed or the highest degree you have received? Associate degree: occupational, technical, or vocational program 12/09/2021 Comments No Sex and Gender Information Value Date Recorded Sex Assigned at Female 03/22/2023 10:14 PM TRACK EQUIPMENT OPERATOR Legal Sex Female 5:31 AM TRACK EQUIPMENT OPERATOR Gender Identity Female 02/02/2018 11:17 AM TRACK EQUIPMENT OPERATOR Sexual Orientation Straight 02/02/2018 11 :17 AM TRACK EQUIPMENT OPERATOR documented as of this encounter Miscellaneous Notes * Telephone Encounter - Stephanie Agarwal L.P.N. - 11/21/2024 2:44 PM CDT Per conversation with patient referral has been faxed to [facility] and [facility] * Telephone Encounter - Nunu Benoit C.M.A. - 11/18/2024 9:24 AM CDT Left message for patient to return call to clinic. Does the patient need to speak to nursing? yes Action needed: Need to verify where to fax orthopedic referral. * Addendum Note - Susi Crawford MPAS, P.A.-C. - 11/15/2024 4:51 PM CDT Addended by: SUSI CRAWFORD on: 11/15/2024 04:51 PM Modules accepted: Orders * Telephone Encounter - Kassandra Garcia L.P.N. - 10/11/2024 10:26 AM CDT Called and [...] CDT Comprehensive Visit Department of Urology in [place], [place] [address] [place] [address] Mala Toro APRN CChetnaNChetnaP. [address] [place] [phone] 02/20/2025 12:30 PM TRACK EQUIPMENT OPERATOR Appointment Department of Laboratory Medicine in [place], [place] [address] [place] [phone] Susi Crawford MPAS, P.A.-C. [address] [place] [phone] 02/20/2025 1:30 PM TRACK EQUIPMENT OPERATOR Office Visit Department of Community Internal Medicine in [place], [place] 300 [place] [phone] Susi Crawford MPAS, P.A.-C. [address] [place] [phone] documented as of this encounter Visit Diagnoses Diagnosis Pain Shoulder Left- Primary Pain Shoulder Right documented in this encounter Additional Health Concerns Assessment Noted Time PHQ-9 Depression Total Score: 7 08/16/19 25 12:54 PM CDT documented as of this encounter Care Teams Leaf Blender Relationship Specialty Start Date End Date Susi Crawford MPAS, P.A.-C. [address] [place] [phone] PCP - General Internal Medicine 5/27/25 documented as of this encounter
--- OUTSIDE RECORDS SUMMARY | 2024-11-24 15:31 | XMS_ITS | Encounter Summary ---
Author Organization [facility] Address [address] [place] [address] Care Team Providers Care Industrial Cleaner Name Role Phone Susi Lemus P.A.-C. Primary Care Pro vider Encounter Details Date Type Department Care Team (Late st Contact Info) Description 12/08/2003 Historical Ophthalmology RST OPH Antonino Arias M.D. Social History Tobacco Use Types Packs/Day Years Used Date Smoking Tobacco: Never Assessed Comments Unknown Sex and Gender Information Value Date Recorded Sex Assigned at Female 03/22/2023 10:14 PM SANDBLASTER PAINT SPRAYER Legal Sex Female 5:31 AM SANDBLASTER PAINT SPRAYER Gender Identity Female 02/02/2018 11:17 AM SANDBLASTER PAINT SPRAYER Sexual Orientation Straight 02/02/2018 11 :17 AM SANDBLASTER PAINT SPRAYER documented as of this encounter Progress Notes [...] astigmatism, presbyopia). CDM Reports - EYEGEN Id: [id number] Status: Fnl documented in this encounter Plan of Treatment Upcoming Encounters Date Type Department Care Team (Late st Contact Info) Description 01/06/2025 10:30 AM CDT Comprehensive Visit Department of Urology in [place], [place] [address] [address] Mala Toro APRN, C.N.P. [address], [place] [phone] 02/20/2025 12:30 PM SANDBLASTER PAINT SPRAYER Appointment Department of Laboratory Medicine in [place], [place] 300 [place] [phone] Susi Lemus MPAS, P.A.-C. 300 [place] [phone] 02/20/2025 1:30 PM SANDBLASTER PAINT SPRAYER Office Visit Department of Community Internal Medicine in [place], [place] 300 [place] [phone] Susi Lemus MPAS, P.A.-C. [address] [place] [phone] documented as of this encounter Visit Diagnoses Not on filedocumented in this encounter Additional Health Concerns Infection Onset Date Last Indicated Resolved Time COVID19 Pending 09/30/2019 09/30/2019 10/01/2019 6 :52 PM CDT documented as of this encounter Care Teams Industrial Cleaner Relationship Specialty Start Date End Date Susi Lemus MPAS, P.A.-C. [address] [place] [phone] PCP - General Internal Medicine 08/02/24 documented as of this encounter
--- OUTSIDE RECORDS SUMMARY | 2024-11-24 15:31 | XMS_ITS | Encounter Summary ---
Author Organization [facility] Address [address] [place] [address] Care Team Providers Care Dielectric Embossing Machine Operator Name Role Phone Susi Lemus, P.A.-C. Primary Care Pro vider Reason for Visit * Reason Onset Date Comments Order Request 11/15/2024 Encounter Details Date Type Department Care Team (Late st Contact Info) Description 11/15/2024 Clinical Communication Department of Community Internal Medicine in [place], [place] [address] [place] [phone] Susi Lemus MPAS, P.A.-C. [address] [place] [phone] Order Request Social History Tobacco Use Types Packs/Day Years Used Date Smoking Tobacco: Never Passive Smoke Exposure: Past Smokeless Tobacco: Never Alcohol Use Standard Drinks/Week Comments Not Currently 0 (1 standard drink = 0.6 oz pur e alcohol) basicly nil [facility] Utilities Answer Date Recorded In the past 12 months has [employer], gas, oil, or water company threatened [...] your living situation today? I have a [facility] place to live 08/15/2024 Education Answer Date Recorded What is the highest level of school you have completed or the highest degree you have received? Associate degree: occupational, technical, or vocational program 12/09/2021 Comments No Sex and Gender Information Value Date Recorded Sex Assigned at Female 03/22/2023 10:14 PM MANAGER LONG TERM CARE Legal Sex Female 5:31 AM MANAGER LONG TERM CARE Gender Identity Female 02/02/2018 11:17 AM MANAGER LONG TERM CARE Sexual Orientation Straight 02/02/2018 11 :17 AM MANAGER LONG TERM CARE documented as of this encounter Miscellaneous Notes * Telephone Encounter - Mary Lou Lambert L.P.N. - 11/17/2024 12:27 PM CDT [place], home health aid reached, she stated they would like the order for the wheel chair to be faxed to [facility], order sent today-11/17/24 documented in this encounter Plan of Treatment Upcoming Encounters Date Type Department Care Team (Late st Contact Info) Description 01/06/2025 10:30 AM CDT Comprehensive Visit Department of Urology in [place], [place] [address] [place] [address] Mala Toro APRN, C.N.P. [address] [place] [phone] 02/20/2025 12:30 PM MANAGER LONG TERM CARE Appointment Department of Laboratory Medicine in [place], [place] [address] [place] [phone] Susi Lemus MPAS, P.A.-C. [address] [place] [phone] 02/20/2025 1:30 PM MANAGER LONG TERM CARE Office Visit Department of Community Internal Medicine in [place], [place] [address] [place] [phone] Susi Lemus MPAS, P.A.-C. 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 [address] [place] [phone] PCP - General Internal Medicine 08/02/24 documented as of this encounter
--- OUTSIDE RECORDS SUMMARY | 2024-11-24 15:31 | XMS_ITS | Encounter Summary ---
Author Organization [facility] Address [address] [place] [address] Care Team Providers Care Cotton Farmworker Name Role Phone Susi Lemus P.A.-C. Primary Care Pro vider Encounter Details Date Type Department Care Team (Late st Contact Info) Description 02/02/2012 Confidential HX RST NO MAPPING Rodri Chambers M.D., M.P.H. [address] [place] [phone] Social History Tobacco Use Types Packs/Day Years Used Date Smoking Tobacco: Never Assessed Comments Unknown Sex and Gender Information Value Date Recorded Sex Assigned at Female 03/22/2023 10:14 PM ACCOUNTS PAYABLE SUPERVISOR Legal Sex Female 5:31 AM ACCOUNTS PAYABLE SUPERVISOR Gender Identity Female 02/02/2018 11:17 AM ACCOUNTS PAYABLE SUPERVISOR Sexual Orientation Straight 02/02/2018 11 :17 AM ACCOUNTS PAYABLE SUPERVISOR documented as of this encounter Progress Notes * Rodri Chambers M.D., M.P.H. - 02/02/2012 10:50 AM CST DEMOGRAPHIC INFORMATION Clinic Number: [id number] Patient Name: Ms. Kimberly Cuadra, R.Courtney. Age: 61 Y Birthdate: 1950 Sex: F Address: [address] [place] [address] City: [place] [address] CONFIDENTIAL NOTE Service Date/Time: 02-Feb-2012 10:50 Provider: Rodri Chambers MD, MPH Pager: [phone] Service: PREV Type/Desc: LE Status: Fnl Revision [...] Adolfo Chambers MD, MPH Clinical Notes - [id number] Id: [id number] Status: Fnl UNTS PAYABLE SUPERVISOR documented in this encounter Plan of Treatment Upcoming Encounters Date Type Department Care Team (Late st Contact Info) Description 01/06/2025 10:30 AM CDT Comprehensive Visit Department of Urology in [place], [place] [address] [place] [address] Mala Toro APRN C.N.PChetna [address] [place] [phone] 02/20/2025 12:30 PM ACCOUNTS PAYABLE SUPERVISOR Appointment Department of Laboratory Medicine in [place], [place] [address] [place] [phone] Susi Lemus MPAS, P.A.-C. 300 [place] [phone] 02/20/2025 1:30 PM ACCOUNTS PAYABLE SUPERVISOR Office Visit Department of Community Internal Medicine in [place], [place] [address] [place] [phone] Susi Lemus MPAS, P.A.-C. [address] [place] [phone] documented as of this encounter Visit Diagnoses Not on filedocumented in this encounter Additional Health Concerns Infection Onset Date Last Indicated Resolved Time COVID19 Pending 09/30/2019 09/30/2019 10/01/2019 6 :52 PM CDT Assessment Noted Time PHQ-9 Depression Total Score: 12 012 8:46 AM CDT documented as of this encounter Care Teams Cotton Farmworker Relationship Specialty Start Date End Date Susi Lemus MPAS, P.A.-C. [address] [place] [address] PCP - General Internal Medicine 08/02/24 documented as of this encounter
--- OUTSIDE RECORDS SUMMARY | 2024-11-24 15:31 | XMS_ITS | Encounter Summary ---
Author Organization [facility] Address [address] [place] [address] Care Team Providers Care Production Machine Tender Name Role Phone Susi Lemus P.A.-C. Primary Care Pro vider Encounter Details Date Type Department Care Team (Late st Contact Info) Description 07/23/2011 Historical Ophthalmology RST OPH Candace Greenwood O.D. [address] [place] [address] Social History Tobacco Use Types Packs/Day Years Used Date Smoking Tobacco: Never Assessed Comments Unknown Sex and Gender Information Value Date Recorded Sex Assigned at Female 03/22/2023 10:14 PM PLANER OFF BEARER Legal Sex Female 5:31 AM PLANER OFF BEARER Gender Identity Female 02/02/2018 11:17 AM PLANER OFF BEARER Sexual Orientation Straight 02/02/2018 11 :17 AM PLANER OFF BEARER documented as of this encounter Progress Notes [...] astigmatism, presbyopia). CDM Reports - EYEGEN Id: [id number] Status: Fnl documented in this encounter Plan of Treatment Upcoming Encounters Date Type Department Care Team (Late st Contact Info) Description 01/06/2025 10:30 AM CDT Comprehensive Visit Department of Urology in [place], [place] [address] [place] [address] Mala Toro APRN, C.N.P. [address] [place] [phone] 02/20/2025 12:30 PM PLANER OFF BEARER Appointment Department of Laboratory Medicine in [address] [phone] Susi Lemus MPAS, P.A.-C. [address] [place] [address] 02/20/2025 1:30 PM PLANER OFF BEARER Office Visit Department of Community Internal Medicine in [place], [place] [address] [place] [phone] Susi Lemus MPAS, P.A.-C. [address] [place] [phone] documented as of this encounter Visit Diagnoses Not on filedocumented in this encounter Additional Health Concerns Infection Onset Date Last Indicated Resolved Time COVID19 Pending 09/30/2019 09/30/2019 10/01/2019 6 :52 PM CDT Assessment Noted Time PHQ-9 Depression Total Score: 15 08/31/ 008 4:27 PM CDT documented as of this encounter Care Teams Production Machine Tender Relationship Specialty Start Date End Date Susi Lemus MPAS, P.A.-C. [address] [facility] [phone] PCP - General Internal Medicine 08/02/24 documented as of this encounter
--- OUTSIDE RECORDS SUMMARY | 2024-11-24 15:31 | XMS_ITS | Encounter Summary ---
Author Organization [facility] Address [address] [place] [address] Care Team Providers Care School Patrol Name Role Phone Susi Lemus P.A.-C. Primary Care Pro vider Encounter Details Date Type Department Care Team (Late st Contact Info) Description 09/06/2010 Historical Ophthalmology RST OPH Denver Murphy M.D. [address] [place] [address] Social History Tobacco Use Types Packs/Day Years Used Date Smoking Tobacco: Never Assessed Comments Unknown Sex and Gender Information Value Date Recorded Sex Assigned at Female 03/22/2023 10:14 PM BASE REMOVER Legal Sex Female 5:31 AM BASE REMOVER Gender Identity Female 02/02/2018 11:17 AM BASE REMOVER Sexual Orientation Straight 02/02/2018 11 :17 AM BASE REMOVER documented as of this encounter Progress Notes * Denver Murphy M.D. - 09/06/2010 7:49 AM CDT Eye Postoperative MULTI-VISIT DOCUMENT This document contains multiple patient visits and is available for review in Document Viewer. CDM Reports - EYEPO Id: [id number] Status: Fnl documented in this encounter Plan of Treatment Upcoming Encounters Date Type Department Care Team (Late st Contact Info) Description 01/06/2025 10:30 AM CDT Comprehensive Visit Department of Urology in [place], [place] [address] [place] [address] Mala Toro APRN, C.N.P. [address] [facility] [place] [phone] 02/20/2025 12:30 PM BASE REMOVER Appointment Department of Laboratory Medicine in [place], [place] [address] [place] [phone] Susi Lemus MPAS, P.A.-C. 300 [facility] [place] [phone] 02/20/2025 1:30 PM BASE REMOVER Office Visit Department of Community Internal Medicine in [place], [place] [address] [place] [phone] Susi Lemus MPAS, P.A.-C. [address] [place] [address] documented as of this encounter Visit Diagnoses Not on filedocumented in this encounter Additional Health Concerns Infection Onset Date Last Indicated Resolved Time COVID19 Pending 09/30/2019 09/30/2019 10/01/2019 6 :52 PM CDT Assessment Noted Time PHQ-9 Depression Total Score: 15 08/31/ 008 4:27 PM CDT documented as of this encounter Care Teams School Patrol Relationship Specialty Start Date End Date Susi Lemus MPAS, P.A.-C. [address] [facility] [place] [phone] PCP - General Internal Medicine 08/02/24 documented as of this encounter
--- OUTSIDE RECORDS SUMMARY | 2024-11-24 15:31 | XMS_ITS | Encounter Summary ---
Author Organization [facility] Address [address] [place] [address] Care Team Providers Care Savings Counselor Name Role Phone Susi Lemus P.A.-C. Primary Care Pro vider Encounter Details Date Type Department Care Team (Late st Contact Info) Description 06/25/2010 Historical Ophthalmology RST OPH Yudi Chin Social History Tobacco Use Types Packs/Day Years Used Date Smoking Tobacco: Never Assessed Comments Unknown Sex and Gender Information Value Date Recorded Sex Assigned at Female 03/22/2023 10:14 PM MANAGER AVIATION Legal Sex Female 5:31 AM MANAGER AVIATION Gender Identity Female 02/02/2018 11:17 AM MANAGER AVIATION Sexual Orientation Straight 02/02/2018 11 :17 AM MANAGER AVIATION documented as of this encounter Progress Notes * Yudi Chin - 06/25/2010 3:22 PM CDT Eye Subsequent Visit HISTORY OF PRESENT ILLNESS Ptosis visual field completed. Returning to Dr. Murphy 06-28-10. CDM Reports - EYESV Id: [id number] Status: Fnl documented in this encounter Plan of Treatment Upcoming Encounters Date Type Department Care Team (Late st Contact Info) Description 01/06/2025 10:30 AM CDT Comprehensive Visit Department of Urology in [place], [place] [address] [place] [address] Mala Toro APRN, C.N.P. [address] [place] [phone] 02/20/2025 12:30 PM MANAGER AVIATION Appointment Department of Laboratory Medicine in [place], [place] 300 [facility] [place] [phone] Susi Lemus MPAS, P.A.-C. 300 [facility] [place] [phone] 02/20/2025 1:30 PM MANAGER AVIATION Office Visit Department of Community Internal Medicine in [place], [place] [address] [place] [phone] Susi Lemus MPAS, ArturoA.-C. 300 [facility] [place] [address] documented as of this encounter Visit Diagnoses Not on filedocumented in this encounter Additional Health Concerns Infection Onset Date Last Indicated Resolved Time COVID19 Pending 09/30/2019 09/30/2019 10/01/2019 6 :52 PM CDT Assessment Noted Time PHQ-9 Depression Total Score: 15 08/31/ 008 4:27 PM CDT documented as of this encounter Care Teams Savings Counselor Relationship Specialty Start Date End Date Susi Lemus MPAS, P.A.-C. 300 [facility] [place] [phone] PCP - General Internal Medicine 08/02/24 documented as of this encounter
--- OUTSIDE RECORDS SUMMARY | 2024-11-24 15:31 | XMS_ITS | Encounter Summary ---
Author Organization [facility] Address [address] [place] [address] Care Team Providers Care Trichologist Name Role Phone Susi Lemus P.A.-C. Primary Care Pro vider Encounter Details Date Type Department Care Team (Late st Contact Info) Description 06/25/2005 Historical Ophthalmology RST OPH Antonino Arias M.D. Social History Tobacco Use Types Packs/Day Years Used Date Smoking Tobacco: Never Assessed Comments Unknown Sex and Gender Information Value Date Recorded Sex Assigned at Female 03/22/2023 10:14 PM WEB SPECIALIST Legal Sex Female 5:31 AM WEB SPECIALIST Gender Identity Female 02/02/2018 11:17 AM WEB SPECIALIST Sexual Orientation Straight 02/02/2018 11 :17 AM WEB SPECIALIST documented as of this encounter Progress [...] left eye. CDM Reports - EYEGEN Id: [id number] Status: Fnl documented in this encounter Plan of Treatment Upcoming Encounters Date Type Department Care Team (Late st Contact Info) Description 01/06/2025 10:30 AM CDT Comprehensive Visit Department of Urology in [place], [place] [address] [address] Mala Toro APRN, C.N.P. [address] [phone] 02/20/2025 12:30 PM WEB SPECIALIST Appointment Department of Laboratory Medicine in [address] [phone] Susi Lemus MPAS, P.A.-C. [address] [place] [phone] 02/20/2025 1:30 PM WEB SPECIALIST Office Visit Department of Community Internal Medicine in [place], [place] 300 [place] [phone] Susi Lemus MPAS, P.A.-C. [address] [place] [phone] documented as of this encounter Visit Diagnoses Not on filedocumented in this encounter Additional Health Concerns Infection Onset Date Last Indicated Resolved Time COVID19 Pending 09/30/2019 09/30/2019 10/01/2019 6 :52 PM CDT documented as of this encounter Care Teams Trichologist Relationship Specialty Start Date End Date Susi Lemus MPAS, P.A.-C. [address] [place], [place] [address] [phone] PCP - General Internal Medicine 08/02/24 documented as of this encounter
--- OUTSIDE RECORDS SUMMARY | 2024-11-24 15:31 | XMS_ITS | Clinical Summary ---
Author Organization [facility] Address [address] [place] [address] Care Team Providers Care Driver Trainer Name Role Phone Susi Lemus P.A.-C. Primary Care Pro vider Source Comments Patient records contain information from all sites at [facility]. For routine questions regarding patient records, call [phone] during business hours, M-F 8:00 AM - 5:00 PM Central Time. Record requests for emergency care only can be directed to [phone] at any time.[facility] Allergies Active Allergy Reactions Criticality Noted Date [...] 5-10 minutes, then rinse. 120 mL 11 Active senna 8.6 mg tablet TAKE 2 TABLETS (17.2 MG) BY MOUTH ONCE DAILY. 180 tablet 3 024 Active miconazole 2 % powder Apply topically daily. Apply to under breast after shower . 43 g 5 2:11 PM CDT 025 Active gabapentin (Neurontin) 100 mg capsule TAKE 1 CAPSULE (100 MG TOTAL) BY MOUTH AT BEDTIME. 90 capsule 3 5 1:16 PM CDT 025 Active DULoxetine (Cymbalta) [address] capsule TAKE 2 CAPSULES (120 MG TOTAL) BY MOUTH DAILY. 180 capsule 3 5 1:17 PM CDT 025 Active Eliquis 5 mg tablet TAKE 1 TABLET (5 MG TOTAL) BY MOUTH 2 (TWO) TIMES A DAY. 180 tablet 3 5 1:17 PM CDT 025 Active baclofen (LioresaL) 10 mg tablet TAKE 1 TABLET (10 MG TOTAL) BY MOUTH 2 (TWO) TIMES A DAY. 180 tablet 3 5 1:17 PM CDT 025 Active atorvastatin (Lipitor) 80 mg tablet TAKE 1 TABLET (80 MG TOTAL) BY MOUTH AT BEDTIME. 90 tablet 3 5 1:16 PM CDT 025 Active WHEELCHAIR [facility] Wheelchair: Standard with leg rests: (Swing away Length of need: 99 months 023 Active DME Oxygen Oxygen for home use. Liters per minute: 2 per nasal cannula. Frequency of use: Nocturnal;. Length of need: 99 Months. 024 Active busPIRone (BuSpar) 5 mg tablet TAKE 1 TABLET (5 MG TOTAL) BY MOUTH 2 (TWO) TIMES A DAY. 180 tablet 3 5 9:38 AM CDT 025 Active busPIRone (BuSpar) 5 mg tablet Take 1 tablet (5 mg total) by mouth 2 (two) times a day. 180 tablet 1:16 PM CDT 025 2024 Discontinued Active Problems Problem Noted Date Diagnosed Date [...] Encounters Date Type Department Care Team Description 11/15/2024 Clinical Communication Department of Community Internal Medicine in [place] [address] [place] [address] Susi Lemus MPAS, P.A.-C. Order Request 11/11/2024 Refill Department of Community Internal Medicine in [address] [phone] Susi Lemus MPAS, P.A.-C. Med Refill 10/19/2024 Clinical Communication Department of Community Internal Medicine in [address] [phone] uSsi Lemus MPAS, P.A.-C. PandaDoc Form ([facility] - SWO & LMN orthotics L1951, [id number] 09/26 ) 10/10/2024 Results Follow-Up Department of Community Internal Medicine in [address] [place] [phone] Susi Lemus MPAS, P.A.-C. DX Shoulder Bilateral 2+ Views 10/10/2024 Clinical Communication Department of Community Internal Medicine in [address] [phone] Susi Lemus MPAS, P.A.-C. PandaDoc Form ([facility] - Initial Eval 09/22/24) 10/07/2024 4:13 PM CDT - 10/07/2024 11:59 PM CDT Hospital Encounter Department of Radiology in [address] [address] Susi Lemus MPAS, P.A.-C. Pain Shoulder Left; Pain Shoulder Right Discharge Disposition: Home or Self Care 10/07/2024 3:30 PM CDT Office Visit Department of Community Internal Medicine in [address] [place] [address] Susi Lemus MPAS, P.A.-C. Pain Shoulder Left (Primary Dx); Pain Shoulder Right; Hyperlipidemia; Chronic Kidney Disease (CKD), Stage 3b Glomerular Filtration Rate (GFR) 30 To 44 (HCC); Incontinence Urinary; Leukocytosis 09/06/2024 Orders Only [facility] Susi Lemus MPAS, P.A.-C. Screening Mammogram Breast Cancer from Last 3 Months Immunizations Immunization Administration [...] Comments Lung cancer Brother 1 emma mulligan Coronary artery disease Brother 2 Jhony mulligan Sleep apnea Brother 2 Jhony caudra Stroke Father patricia cuadra Breast cancer Mother 1 Sister Mitzi song Coronary artery disease Mother 2 zak mulligan Breast cancer Sister Mitzi molina Relation Name Status Comments Brother 1 emma mulligan Alive Brother 2 Jhony mulligan Alive Father patricia mulligan Alive Mother 1 Mother 2 zak mulligan Alive Sister Mitzi molina Alive Social History Tobacco Use Types Packs/Day Years Used Date Smoking Tobacco: Never Passive Smoke Exposure: Past Smokeless Tobacco: Never Tobacco Cessation:Counseling Given: Not Answered Alcohol Use Standard Drinks/Week Comments Not Currently 0 (1 standard drink = 0.6 oz pur e alcohol) basicly nil [facility] Utilities Answer Date Recorded In [...] your living situation today? I have a [facility] place to live 08/15/2024 Education Answer Date Recorded What is the highest level of school you have completed or the highest degree you have received? Associate degree: occupational, technical, or vocational program 12/09/2021 Comments No Sex and Gender Information Value Date Recorded Sex Assigned at Female 03/22/2023 10:14 PM SIX SIGMA PROJECT MANAGER Legal Sex Female 5:31 AM SIX SIGMA PROJECT MANAGER Gender Identity Female 02/02/2018 11:17 AM SIX SIGMA PROJECT MANAGER Sexual Orientation Straight 02/02/2018 11 :17 AM SIX SIGMA PROJECT MANAGER Last Filed Vital Signs Vital Sign Reading [...] Body Mass Index 40.24 03/14/2019 9:07 AM SIX SIGMA PROJECT MANAGER Plan of Treatment Upcoming Encounters Date Type Department Care Team (Late st Contact Info) Description 01/06/2025 10:30 AM CDT Comprehensive Visit Department of Urology in [place], [place] [address] [address] Mala Toro APRN, C.N.P. [address] [address] 02/20/2025 12:30 PM SIX SIGMA PROJECT MANAGER Appointment Department of Laboratory Medicine in [place], [place] [address] [place] [address] Susi Lemus MPAS, P.A.-C. [address] [place] [phone] 02/20/2025 1:30 PM SIX SIGMA PROJECT MANAGER Office Visit Department of Community Internal Medicine in [place], [place] [address] [place] [address] Susi Lemus MPAS, P.A.-C. [address] [place] [phone] Health Maintenance Due Date Last Done Comments [...] 06/19/2020, Additional history exists COVID-19 Vaccine ( - season) 2024 06/18/2021, 06/19/2020, 05/18/2020 Influenza Vaccine (#1) 2024 , 12/09/2016, 01/02/2015, Additional history exists Depression Monitoring [...] CDT Pain Shoulder Left Pain Shoulder Right HEMOGLOBIN A1C, B Routine 08/15/2024 2:1 5 PM CDT Screening Examination Diabetes Mellitus LIPID PANEL, S Routine 08/15/2024 2:15 PM CDT Hyperlipidemia BI BREAST SCREENING BILATERAL WITH TOMOSYNTHESIS RAD - Routine (most inpatients and all outpatients) 05/05/2023 2:06 PM SIX SIGMA PROJECT MANAGER Screening Mammogram Breast Cancer from Last 3 [...] greater tuberosity. No fracture or dislocation. us Silvae Mariah GUZMAN, P.A.-C. IMG DIAGNOSTIC IM AGING PROCEDURES [...] equation. Cholesterol, HDL 50 >=50 mg/dL 08/16/19 25 6:18 PM CDT OWAT Cholesterol, Non-HDL, Calculated [...] BLOOD ADD-ON Final Result Performing Organization Address City/[facility]/ZIP Co de Phone Number [facility] [address] [place] [address], [place] OWAT [facility] [place] [address] [place] [address] * Hemoglobin A1c (08/15/2024 2:15 PM CDT) Hemoglobin A1c, B 5.6 4.2 - 5.6 % 08/15/2024 6:14 PM CDT OW Blood (Blood, Venous) 08/15/2024 2:15 PM CDT 08/15/2024 5:44 PM CDT Susi GUZMAN, P.A.-C. LAB BLOOD ADD-ON Final Result Performing Organization Address [facility] Co de Phone Number [facility] [address] [place] [address], [facility] [place] [address] [place] [address] * BI Breast Screening Bilateral with Tomosynthesis (05/05/2023 2:06 PM SIX SIGMA PROJECT MANAGER) Anatomical Region Laterality Modality Breast, Breast Imaging RST L OS, Breast Imaging ARZ LOS, Breast Imaging FLA LOS Bilateral Mammography Impressions 05/05/2023 4:20 PM SIX SIGMA PROJECT MANAGER Negative. RECOMMENDATION: Annual Screening Mammogram ASSESSMENT: BI-RADS: 1: Negative. Narrative 05/05/2023 4:20 PM SIX SIGMA PROJECT MANAGER EXAM: BI BREAST SCREENING BILATERAL WITH TOMOSYNTHESIS [...] Recently Relevant to Health Maintenance Insurance MEDICARE [facility] EMPLOYEE Advance Directives For more information, please contact: [phone] Documents on File Type Date Recorded Patient Automation Qtp Tester Expl anation Advance Directives 04/02/2023 8:51 AM POLS T/ESPERANZAST Care Teams Driver Trainer Relationship Specialty Start Date End Date Susi Lemus MPAS, P.A.-C. [address] [place], [place] [address] [address] PCP - General Internal Medicine 08/02/24
[2024-11-24 15:51] VITALS: BP 114/70; PULSE 72; RESP 16; TEMP 36.3; O2SAT 93; BMI 37.8
--- NOTE | 2024-11-24 16:31 | CRLHL7_ITS ---
For Patients: As a result of the Cures Act, medical imaging exams and procedure reports are released immediately into your electronic medical record. You may view this report before your referring provider. If you have questions, please contact your health care provider. INDICATION: Cough TECHNIQUE: Chest radiograph 1 view COMPARISON: None FINDINGS: The sensitivity and specificity of the exam are moderately limited by the patient`s body habitus. Mediastinum: The right mediastinal border is convex in appearance which may be due to an enlarged tortuous ascending aorta. The cardiac silhouette is mildly enlarged but may be accentuated by the portable technique. Lung: Both lungs are unremarkable in appearance. No sign of pleural effusion seen. No pneumothorax is identified. Bone and Soft tissue: Unremarkable for age. IMPRESSIONS: 1. No acute cardiopulmonary disease is seen. 2. The right mediastinal border is convex in appearance which may be due to an enlarged tortuous ascending aorta. Assessment with chest CT may be helpful. 3. The cardiac silhouette is mildly enlarged but may be accentuated by the portable technique. Dictated by Aries Jacobson MD @ 11/24/2024 5:35:01 PM Dictated by: Aries Jacobson MD @ 11/24/2024 17:35:05 (Electronically Signed)
[2024-11-24 16:51] LABS: PCR FLU A Negative PCR FLU A (Negative); PCR FLU B Negative PCR FLU B (Negative); PCR RSV Negative PCR RSV (Negative); SARS PCR* Negative SARS-CoV-2 (Negative)
[2024-11-24 16:56] VITALS: O2SAT 87
[2024-11-24 17:16] LABS: Hematocrit* 40.8 % (33.0-51.0); Hemoglobin* 12.4 gm/dL (12.0-16.0); Immature Granulocytes Abs Auto 0.11 K/uL (0.00-0.30); Immature Granulocytes Pct Auto 1.1 %; Lymphocytes Absolute Auto 1.20 K/uL (0.90-2.90); Mean Corpuscular HGB Conc 30 gm/dL (32-36); Mean Corpuscular Hemoglobin 31 pg (26-34); Mean Corpuscular Volume 102 fL (80-100); RDW Coefficient of Variation % 15.9 % (11.5-15.5); Red Blood Count* 4.02 m/uL (4.00-5.20); Slide Review Reflex No; White Blood Count* 9.57 K/uL (4.50-11.00)
--- NOTE | 2024-11-24 17:22 | ED.GENADULT ---
HPI - General Adult General Date Seen: 11/24/24 Chief complaint: Weakness Stated complaint: weakness Time Seen by Provider: 11/24/24 16:15 History of Present Illness HPI narrative: patient is a 74-year-old here with her niece. She lives independently at home. She had a stroke about a year ago and has right-sided weakness. She is working with PT on getting more strength in her right leg. In the meantime, she gets around just in a wheelchair and transfers to a recliner for sleep. She was seen about 10 days ago because of of minor fall, no injuries at that time. Today when PT was there they noted that her O2 sats did dip down into the 89% range. She says that people of been worried she has pneumonia because she has had a cough for few weeks and has felt kind of heavy in her chest. She has not had fevers. Denies nausea or vomiting. She has chronic lower extremity edema, no worse than usual. She is chronically anticoagulated on Eliquis. She does not smoke or drink. She says she is doing just fine at home, she suspects her family has some concerns but she says she has a 5-year-old [place] Terrier who is like her child, and she has no interest in alternative living situation at this time. No fall since she was seen here last. Related Data Home Medications ?Medication ?Instructions ?Recorded ?Confirmed duloxetine 60 mg capsule,delayed 120 mg PO DAILY 12/02/22 11/14/24 release apixaban 5 mg tablet (Eliquis) 5 mg PO BID 11/14/24 11/14/24 atorvastatin 80 mg tablet 80 mg PO QPM 11/14/24 11/14/24 baclofen 10 mg tablet 10 mg PO BID 11/14/24 11/14/24 gabapentin 100 mg capsule 100 mg PO QPM 11/14/24 11/14/24 Allergies Allergy/AdvReac Type Severity Reaction Status Date / Time No Known Drug Allergies Allergy Verified 11/24/24 15:51 Review of Systems Status of ROS: Reports: 10 or more systems reviewed and unremarkable except as noted in History and below [facility] Social History Smoking Status: Never smoker How often do you have a drink containing alcohol: never AUDIT-C Alcohol total score: 0 Non-prescribed substance use: denies use Exam Narrative: Exam Narrative: Vital signs reviewed In general, alert, nontoxic elderly woman. Breathing easily. She is overweight. Head: Normocephalic, atraumatic. Eyes: Sclera clear. Pupils equal and reactive. ENT: Mucous membranes moist. Neck: Supple without adenopathy. Heart: Regular rate and rhythm without murmur. Lungs: Clear. No increased work of breathing, crackles or wheezes. Abdomen: Soft, nontender to palpation. Extremities: Bilateral lower extremity edema, no erythema, no skin changes. Diffusely tender to palpation. Neurologic: Alert, conversant. Speech fluent, face symmetric. Moves all extremities equally. Skin: Warm, dry well perfused. Affect: Normal. Const: Vital Signs, click to edit/add: Vital Signs - 24 hr 11/24/24 15:51 11/24/24 16:56 Temperature 97.3 F L Pulse Rate [Pulse Oximeter] 72 Respiratory Rate 16 Blood Pressure [Ri ght Upper Arm] 114/70 Pulse Oximetry 93 87 L Oxygen Delivery Me thod Room Air Room Air Course Course ED Course: During the time I was talking to patient, when she had a good plus her O2 sats were 98%. Nursing noted that she sometimes dips down into the upper 80s, but this seems to be when the plus is not picking up as well. She does not appear short of breath, her lungs are clear. I do not have any reason to really suspect pneumonia although will get a chest x-ray to alleviate that concern. Will also check some basic labs as this was not done week and half ago when she was here for fall. She is chronically anticoagulated, she does not have persistent hypoxia, no tachycardia, no pleuritic chest pain and really no shortness of breath, my suspicion for PE is low. Other diagnostic considerations would be congestive heart failure, anemia, pneumothorax or pleural effusion, viral process among others. Chest x-ray by my review shows no significant findings in the lung, I do not see pulmonary edema, pleural effusion, pneumothorax or infiltrate. Radiology report reviewed, they note that she has some concavity to her aorta that may suggest tortuosity, recommend consideration of CT to further evaluate non emergently. Labs are fairly unremarkable. Her white blood cell count is 10, minimal left shift with 76% neutrophils. Her troponin is 0.01, metabolic panel is notable for creatinine of 1.6, was 1.5 last time it was checked. Electrolytes are normal, viral swab is negative. BNP is elevated at 1580, no previous available. Difficult to know exactly what to do with this as she does not have shortness of breath, pulmonary edema or other findings to really support a diagnosis of congestive heart failure. She did have a stroke last year that was managed at [facility], she believe she had an echo at that time but does not recall them saying anything was wrong. She is not currently on a diuretic. For now, I think I would recommend that she discuss this further with her primary care doctor, perhaps review the previous echo, consider repeat if there were any concerning findings. Nurses put her on a little oxygen because when she falls asleep her oxygen dipped into the upper 80s, it sounds Joaquin if CPAP has been recommended to her and she does not tolerate the mask. When awake, her oxygen saturations are in the mid 90s. Recommend discussion with primary doctor about this as well, if it has been a long time since she tried CPAP it is possible there may be a mass that would be more comfortable for her now. Return for worsening symptoms, severe shortness of breath, chest pain, fevers, fainting or other new symptoms. Vital Signs Vital signs: Initial Vital Signs Temperature 97.3 F L 11/24/24 15:51 Temperature Source Temporal Artery Scan 11/24/24 15:51 Pulse Rate 72 11/24/24 15:51 Respiratory Rate 16 11/24/24 15:51 Blood Pressure 114/70 11/24/24 15:51 Blood Pressure Mean 84 11/24/24 15:51 Blood Pressure Position Sitting 11/24/24 15:51 Pulse Oximetry 93 11/24/24 15:51 Oxygen Delivery Method Room Air 11/24/24 15:51 Vital Signs Temperature 97.3 F L 11/24/24 15:51 Pulse Rate 72 11/24/24 15:51 Respiratory Rate 16 11/24/24 15:51 Blood Pressure 114/70 11/24/24 15:51 Pulse Oximetry 93 11/24/24 15:51 Oxygen Delivery Method Room Air 11/24/24 15:51 Temperature 97.3 F L 11/24/24 15:51 Pulse Rate 72 11/24/24 15:51 Respiratory Rate 16 09/18/25 15:51 Blood Pressure 114/70 11/24/24 15:51 Pulse Oximetry 87 L 11/24/24 16:56 Oxygen Delivery Method Room Air 11/24/24 16:56 Medical Decision Making Lab Data Labs: Lab Results 11/24/24 11/24/24 Range/Units 16:08 17:00 WBC 9.57 (4.50-11.00) K/uL RBC 4.02 (4.00-5.20) m/uL Hgb 12.4 (12.0-16.0) gm/dL Hct 40.8 (33.0-51.0) % MCV 102 H (80-100) fL MCH 31 (26-34) pg MCHC 30 L (32-36) gm/dL RDW Coeff of Lilian 15.9 H (11.5-15.5) % Plt Count 194 (140-440) K/uL Neut % (Auto) 76.3 H (42.0-72.0) % Lymph % (Auto) 12.4 L (20-44) % [place] % (Auto) 8.5 (0.0-11.0) % Eos % (Auto) 1.5 (0.0-7.0) % Baso % (Auto) 0.2 (0.0-3.0) % Neut # (Auto) 7.30 H (1.7-7.0) K/uL Lymph # (Auto) 1.20 (0.90-2.90) K/uL [place] # (Auto) 0.80 (0.00-0.90) K/UL Eos # (Auto) 0.14 (0.00-0.50) K/uL Baso # (Auto) 0.02 (0.00-0.30) K/uL Abs Immat Gran (auto) 0.11 (0.00-0.30) K/uL Imm/Tot Granulo (auto) 1.1 % Sodium 139 (135-149) mmol/L Potassium 4.5 (3.6-5.1) mmol/L Chloride 104 (96-114) mmol/L Carbon Dioxide 32 (20-32) mmol/L Anion Gap 3 L (7-15) mEq/L BUN 22 (7-30) mg/dL Creatinine 1.6 H (0.5-1.5) mg/dL Estimated Creat Clear 23.98 Estimated GFR 34 ml/min Glucose 112 (60-115) mg/dL Calcium 8.9 (8.4-10.6) mg/dL Total Bilirubin 0.4 (0.1-1.5) mg/dL AST 21 (12-35) U/L ALT 14 (4-35) U/L Alkaline Phosphatase 107 (40-150) U/L Troponin I 0.01 (0.01-0.04) ng/mL NT-Pro-B Natriuret Pep 1580 H (See Note) pg/mL Total Protein 6.6 (6.0-8.3) g/dL Albumin 3.5 (3.3-5.0) g/dL SARS-CoV-2 (PCR) Negative SARS-CoV-2 (Negative) Influenza Type A (PCR) Negative PCR FLU A (Negative) Influenza Type B (PCR) Negative PCR FLU B (Negative) RSV (PCR) Negative PCR RSV (Negative) Imaging Data Chest x-ray: Attestation: I have reviewed the pertinent imaging results. Radiologist's impression: Patient: Kimberly Cuadra MR#: [id number] : 1950 Acct:[id number] Loc: ED Service Date: 11/24/[address]: Ordering Physician: Mirtha Duke M.D. Date of Service: 11/24/24 Procedure(s): XR chest 1V portable Accession Number(s): [id number] cc: Mirtha Duke M.D.; Provider,Not a Local~ For Patients: As a result of the Cures Act, medical imaging exams and procedure reports are released immediately into your electronic medical record. You may view this report before your referring provider. If you have questions, please contact your health care provider. INDICATION: Cough TECHNIQUE: Chest radiograph 1 view COMPARISON: None FINDINGS: The sensitivity and specificity of the exam are moderately limited by the patient`s body habitus. Mediastinum: The right mediastinal border is convex in appearance which may be due to an enlarged tortuous ascending aorta. The cardiac silhouette is mildly enlarged but may be accentuated by the portable technique. Lung: Both lungs are unremarkable in appearance. No sign of pleural effusion seen. No pneumothorax is identified. Bone and Soft tissue: Unremarkable for age. IMPRESSIONS: 1. No acute cardiopulmonary disease is seen. 2. The right mediastinal border is convex in appearance which may be due to an enlarged tortuous ascending aorta. Assessment with chest CT may be helpful. 3. The cardiac silhouette is mildly enlarged but may be accentuated by the portable technique. Dictated by Aries Jacobson MD @ 11/24/2024 5:35:01 PM Dictated by: Aries Jacobson MD @ 11/24/2024 17:35:05 Discharge Plan Discharge Clinical Impression: Suspected condition not found Patient Disposition: Home, Self-Care Condition: Stable Additional Instructions: Overall your labs look good today. You have an elevated BNP, which we sometimes associate with heart failure. I do not see any evidence of heart attack, fluid on your lungs, pneumonia, or other concerning findings today. When you does off, your oxygen levels are little bit low and this is probably to do with a component of sleep apnea. As discussed, CPAP can help with this, if it has been awhile since you tried that, you could see if there is a different system that is more comfortable for you now. Please make an appointment to follow-up with your primary doctor in the next week for recheck, consideration of additional testing. Return any time if he still significantly worse, develops fevers, severe shortness of breath, chest pain, fainting or other worsening. One other note on your chest x-ray, the radiologist notes that the shape of your aorta is slightly irregular, please discuss with your primary doctor as to whether not you would like to do a CT scan to further evaluate that. This can be done non emergently as an outpatient. Prescriptions: No Action duloxetine 60 mg capsule,delayed release(DR/EC) 120 mg PO DAILY atorvastatin 80 mg tablet 80 mg PO QPM baclofen 10 mg tablet 10 mg PO BID gabapentin 100 mg capsule 100 mg PO QPM Eliquis 5 mg tablet 5 mg PO BID Follow Up/Referrals: Provider,Not a Local [Primary Care Provider, Family Practice] Stand Alone Forms: [employer] Info Instructions
[2024-11-24 18:32] LABS: Albumin* 3.5 g/dL (3.3-5.0); Chloride* 104 mmol/L (96-114)
[2024-11-24 18:33] LABS: Potassium* 4.5 mmol/L (3.6-5.1); Sodium* 139 mmol/L (135-149)
[2024-11-24 18:35] LABS: Alanine Aminotransferase* 14 U/L (4-35); Anion Gap 3 mEq/L (7-15); Aspartate Amino Transferase* 21 U/L (12-35); Blood Urea Nitrogen* 22 mg/dL (7-30); Carbon Dioxide* 32 mmol/L (20-32); Creatinine* 1.6 mg/dL (0.5-1.5); Est. Creatinine Clearance* 23.98; Estimated Glomerular Filt Rate 34 ml/min
[2024-11-24 18:36] LABS: Alkaline Phosphatase* 107 U/L (40-150); Bilirubin Total* 0.4 mg/dL (0.1-1.5); Calcium* 8.9 mg/dL (8.4-10.6); Glucose* 112 mg/dL (60-115); Total Protein* 6.6 g/dL (6.0-8.3)
[2024-11-24 18:48] LABS: NT Pro B Type NatriureticPept* 1580 pg/mL (See Note)
== END 2024-11-24 20:01 | disposition home or self-care (01) ==
PROVIDERS: Emergency Provider Emergency Medicine
DX: I69.351 Hemiplegia and hemiparesis following cerebral infarction affecting right dominant side (principal); R60.9 Edema, unspecified; Z79.01 Long term (current) use of anticoagulants; Z71.1 Person with feared health complaint in whom no diagnosis is made
CPT/HCPCS: 36415; 71045; 80053; 83880; 84484; 85025; 87631; 93005; 99283; 99284; 99285

== ENCOUNTER 2024-11-24 20:00 | Outpatient (CLI) | payer MEDICARE, SELFPAY | END 2024-11-24 20:01 | disposition home or self-care (01) | PROVIDERS: Visit Provider Emergency Medicine | DX: R53.1 Weakness (principal) | CPT/HCPCS: A0425; A0428 ==

== ENCOUNTER 2025-01-16 19:42 | Outpatient (CLI) | payer MEDICARE, OTHER, SELFPAY | END 2025-01-16 19:43 | disposition home or self-care (01) | PROVIDERS: PCP Internal Medicine; Visit Provider Family Medicine | DX: R10.9 Unspecified abdominal pain (principal) | CPT/HCPCS: A0425; A0427 ==

== ENCOUNTER 2025-02-08 12:29 | Outpatient (CLI) | payer MEDICARE, OTHER, SELFPAY | END 2025-02-08 12:30 | disposition home or self-care (01) | LOC: AMB 02-13 18:25 | PROVIDERS: PCP Internal Medicine; Visit Provider Family Medicine | DX: S09.90XA Unspecified injury of head, initial encounter (principal); S79.911A Unspecified injury of right hip, initial encounter; W07.XXXA Fall from chair, initial encounter; Y92.008 Other place in unspecified non-institutional (private) residence as the place of occurrence of the external cause | CPT/HCPCS: A0425; A0427 ==